=== PATIENT | female | born 2000 | race Caucasian/White ===

== ENCOUNTER 2021-06-19 09:32 | Emergency (ER) | payer OTHER ==
--- OUTSIDE RECORDS SUMMARY | 2021-06-19 09:34 | XMS REPORT | Continuity of Care Document ---
:2000 Author Organization [facility] t Address [address] [place] [address] Care Team Providers Name Role Phone Zoraida Fragoso Primary Care Physician Zoraida RUSSO Attending Clinician Unavailable BERNARDO JORGENSEN Attending Clinician Unavailable Bernardo Jorgensen MD Attending Clinician Zoraida Fragoso Attending Clinician Payers Payer Name Policy Type Policy Number Effective Date Expiration Date S la [place] [employer] [id number] 2020 HEALTH 00:00:00 Advance Directives Directive Decision Effective Termination Comments Source Date Date Healthcare Agents on N/A Univ ersity FileNameRelationshipHealthcare [facility] Agent Medical RelationshipCommunicationGuadalupe Branch GonzalezBronson [facility] Hospital[facility] [phone] (Mobile) Problems Condition Condition Condition Status Onset Resolution Last Treating Co mments Source Name Details Category Date Date Treatment Clinician Date Maternal Maternal Disease Active Overview: Un bill varicella, varicella, 4-13 Formattin ity of non-immune non-immune 00:00: g of this [place] 00 note Medical might be Branch different from the original. Address in PP. Rubella Rubella Disease Active Overview: Univ ers non-immune non-immune 4-13 Formattin ity of status, status, 00:00: g of this [place] antepartum antepartum 00 note Me dical might be Branch different from the original. Address in PP. Obesity in Obesity in Disease Active U nivers 4-12 ity of 00:00: [place] 00 Medical Branch Primigravi Primigravi Disease Active 2021-0 U nivers da in da in 4-12 ity of first first 00:00: [place] trimester trimester 00 [facility] Branch Supervisio Supervisio Disease Active 2021- U nivers n of high n of high 4-12 ity of risk risk 00:00: [place] , , 00 Me dical antepartum antepartum Br anch Nausea and Nausea and Disease Active 2021-0 U nivers vomiting vomiting 4-12 ity of in in 00:00: [place] 00 [facility] prior to prior to Branch 22 weeks 22 weeks gestation gestation BMI BMI Disease Active 2020- Univers 45.0-49.9, 45.0-49.9, 2-11 it y of adult adult 00:00: [address] Allergies, Adverse Reactions, Alerts Allergy Allergy Status Severity Reaction(s) Onset Inactive Treating Comm ents Source Name Type Date Date Clinician NO KNOWN Drug Active Univers ALLERGIE Class ity of S [facility] Social History Social Habit Start Date Stop Date Quantity Comments Source ASSERTION 2021-05-01 University of 00:00:00 [facility] Exposure to 2021-04-30 2021-05-[address] [facility] SARS-CoV-2 00:00:00 10:23:00 [facility] (event) Branch Alcohol intake 2021-05-30 2021-05-30 Current drinker Unive rsity of 00:00:00 00:00:00 of alcohol [place] Medical (finding) Branch History SDOH 2020-03-31 2020-03-31 99 University o f Alcohol Frequency 00:00:00 00:00:00 [place] M edical Branch History SDOH 2020-03-31 2020-03-31 99 University o f Alcohol Std 00:00:00 00:00:00 [place] Medical Drinks Branch History SDOH 2020-03-31 2020-03-31 99 University o f Alcohol Binge 00:00:00 00:00:00 [place] Medic al Branch Alcohol Comment 2020-03-31 2020-03-31 special Universit y of 00:00:00 00:00:00 occassions [facility] Tobacco use and 2017-05-13 2017-05-13 Never used Universit y of exposure 00:00:00 00:00:00 [facility] Sex Assigned At [birth year] Universit y of 00:00:00 00:00:00 [facility] Smoking Status Start Date Stop Date Source Never smoker [facility] Medications Ordered Filled Start Stop Current Ordering Indication Dosage Frequency Signature Comments Components Source Medication Medication Date Date Medication? Clinician (SIG) Name Name shreyas Yes [id number] 500mg Take 1 Univers n 500 mg 4-13 tablet by ity of tablet 00:00: mouth [place] 00 daily. [facility] Branch azithromyci Yes [id number] 500mg Take 1 Univers n 500 mg 4-13 tablet by ity of tablet 00:00: mouth [place] 00 daily. [facility] Branch Yes [id number] 1{packe Take 1 Univers vit 4-12 t} Packet by ity of 33-iron-fol 00:00: mouth [place] ic-dha 00 daily. Medical ([facility] + DHA) 29 mg iron-1 mg -250 mg combo pack Yes [id number] 1{packe Take 1 Univers vit 4-12 t} Packet by ity of 33-iron-fol 00:00: mouth [place] ic-dha 00 daily. Medical ([facility] + DHA) 29 mg iron-1 mg -250 mg combo pack Immunizations Ordered Filled Immunization Date Status Comments Sourc e Immunization Name Name SARS-COV-2 COVID-19 2020-12-12 Completed Unive rsity of PFIZER VACCINE 00:00:00 [facility] SARS-COV-2 COVID-19 2020-12-12 Completed Unive rsity of PFIZER VACCINE 00:00:00 [facility] Procedures This patient has no known procedures. Encounters Start End Encounter Admission Attending Care Care Encounter Source Date/Time Date/Time Type Type Clinicians Facility Department ID 2021-06-27 2021-06-27 Outpatient Zoraida RUSSO [facility] [id number] Univers 11:00:00 11:00:00 ALEYDA colvin [facility] 2021-06-21 2021-06-21 Outpatient ANISHA MOTA [facility] [id number] Univers 10:00:00 10:00:00 [id number] ity of [facility] 2021-06-19 2021-06-19 Telephone Anisha Jorgensen [facility] [id number] Univers 00:00:00 00:00:00 Bernardo [place] [id number] i ty [facility] [id number] Billya s PROFESSIO [id number] Nd dical [address] 2021-05-31 2021-05-31 Telephone Jeremi [facility] [id number] Univers 00:00:00 00:00:00 Aleyda Conway PEELER OPERATOR [id number] ity [facility] [id number] Billy as MATERNAL [id number] Med ical & CHILD [address] [place] [address] Results This patient has no known results.
[2021-06-19 10:17] LABS: Absolute Lymphocytes (CBC) 2.1 K/uL (0.7-4.9); Hematocrit 39.1 % (36.0-45.0); MPV 7.7 fL (7.6-11.3); RBC Red Blood Cell Count 4.57 M/uL (3.86-4.86)
[2021-06-19 10:51] LABS: BUN Blood Urea Nitrogen 9 mg/dL (7-18); Bicarbonate 25 mmol/L (21-32); Glucose Level 93 mg/dL (74-106); HCG, Quantitative 18952 mIU/mL (1-3); Sodium Level 136 mmol/L (136-145)
[2021-06-19 10:56] LABS: Urine Blood Negative (Negative); Urine Glucose Negative (Negative); Urine Protein Negative (Negative); Urine pH 7.5 (5.0-7.0)
[2021-06-19 11:19] LABS: Urine Bacteria <20 /HPF (<20); Urine RBC <5 /HPF (NONE SEEN)
[2021-06-19 11:20] LABS: Urine Amorphous Sediment 2+ /HPF (NONE SEEN); Urine Mucus 1+ /HPF (NONE SEEN)
--- NOTE | 2021-06-19 12:14 | EDPHYS ---
Physician Documentation [facility] Name: Judi Frank Age: 21 yrs Sex: Female : 2000 Arrival Date: 06/19/2021 Time: 09:35 Bed 19 Private MD: ED Physician Carson Lund HPI: 06/19 09:51 This 21 yrs old Female presents to ER via Ambulatory with complaints of Vomiting - 9 pm1 Wks Preg. 09:51 The patient presents to the emergency department with vomiting. Onset: The pm1 symptoms/episode began/occurred Onset with . Patient reports vomiting once every 2 to 3 days. Possible causes: . The symptoms are aggravated by nothing. The symptoms are alleviated by nothing. Associated signs and symptoms: The patient has no apparent associated signs or symptoms, Pertinent negatives: Vaginal bleeding, vaginal discharge, abdominal pain, flank pain, dysuria, fever. Severity of symptoms: in the emergency department the symptoms are unchanged. The patient has not experienced similar symptoms in the past. The patient has not recently seen a physician. 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 - Social history:: Smoking status: Reported history of juuling and/or vaping. ROS: 09:51 Constitutional: Negative for fever, chills, and weight loss, Cardiovascular: Negative pm1 for chest pain, palpitations, and edema, Respiratory: Negative for shortness of breath, cough, wheezing, and pleuritic chest pain. 09:51 Back: Negative for injury and pain, : Negative for injury, bleeding, discharge, and swelling, MS/Extremity: Negative for injury and deformity, Skin: Negative for injury, rash, and discoloration, Neuro: Negative for headache, weakness, numbness, tingling, and seizure. 09:51 Abdomen/GI: Positive for vomiting, Negative for abdominal pain, diarrhea, constipation. 09:51 All other systems are negative. Exam: 09:51 Constitutional: This is a well developed, well nourished patient who is awake, alert, pm1 and in no acute distress. Head/Face: Normocephalic, atraumatic. 09:51 Back: No spinal tenderness. No costovertebral tenderness. Full range of motion. Skin: Warm, dry with normal turgor. Normal color with no rashes, no lesions, and no evidence of cellulitis. MS/ Extremity: Pulses equal, no cyanosis. Neurovascular intact. Full, normal range of motion. 09:51 ENT: Exam is negative for acute changes, Mouth: no acute changes, Lips: normal, moist, Oral mucosa: normal, pink and intact, moist. 09:51 Cardiovascular: Exam negative for acute changes, Rate: normal, Rhythm: regular, Pulses: no pulse deficits are appreciated. 09:51 Respiratory: Exam negative for acute changes, respiratory distress, shortness of breath, Breath sounds: are clear throughout. 09:51 Abdomen/GI: Exam negative for acute changes, Inspection: abdomen appears normal, Palpation: abdomen is soft and non-tender, in all quadrants. 09:51 Neuro: Exam negative for acute changes, Orientation: is normal, Mentation: is normal, Motor: is normal, moves all fours. Vital Signs: 09:46 BP 133 / 83; Pulse 90; Resp 16; Temp 98.3; Pulse Ox 100% ; Weight 113.4 kg; Height 5 vg1 ft. 4 in. (162.56 cm); Pain 0/10; 12:53 BP 133 / 83; Pulse 87; Resp 16; Pulse Ox 100% ; Pain 0/10; ll1 09:46 Body Mass Index 42.91 (113.40 kg, 162.56 cm) vg1 MDM: 09:56 Patient medically screened. pm1 12:12 Data reviewed: vital signs. Data interpreted: Pulse oximetry: on room air is 100 %. pm1 Interpretation: normal. Counseling: I had a detailed discussion with the patient and/or guardian regarding: the historical points, exam findings, and any diagnostic results supporting the discharge/admit diagnosis, lab results, the need for outpatient follow up, to return to the emergency department if symptoms worsen or persist or if there are any questions or concerns that arise at home. 12:17 ED course: Patient did not want antinausea medications in the ER. Patient with one pm1 episode of vomiting every 2-3 days during her . No metabolic derangement present on BMP. No need for antiemetic at the moment. 06/19 09:50 Order name: Abo/rh Typing; Complete Time: 11:41 pm1 06/19 09:50 Order name: Basic Metabolic Panel; Complete Time: 10:56 pm1 06/19 09:50 Order name: CBC with Diff; Complete Time: 10:30 pm1 06/19 09:50 Order name: Quantitative Hcg; Complete Time: 10:56 pm1 06/19 10:56 Order name: Urine Dipstick-Ancillary; Complete Time: 11:12 EDIA 06/19 10:56 Order name: Urine Microscopic Only; Complete Time: 11:41 pm06/19 09:50 Order name: IV Saline Lock; Complete Time: 09:59 pm06/19 09:50 Order name: Labs collected and sent; Complete Time: 09:59 pm06/19 09:50 Order name: NPO; Complete Time: 09:59 pm1 06/19 09:50 Order name: Urine Dipstick-Ancillary (obtain specimen); Complete Time: 10:57 pm1 06/19 09:50 Order name: Urine Test (obtain specimen); Complete Time: 10:57 pm1 06/19 10:57 Order name: Urine --Ancillary (enter results); Complete Time: 11:41 eb 06/19 11:23 Order name: Urine Culture EDIA 06/19 12:13 Order name: FHT's; Complete Time: 12:27 pm1 Administered Medications: 12:15 Drug: Rocephin (cefTRIAXone) 1 grams Route: IV; Rate: calculated rate; Site: right ll1 antecubital; 12:45 Follow up: Response: No adverse reaction; IV Status: Completed infusion; IV Intake: [id number] Disposition: 06/20 12:21 Co-signature as Attending Physician, Carson Lund MD. rn Disposition Summary: 06/19/21 12:13 Discharge Ordered Location: Home pm1 Problem: new pm1 Symptoms: have improved pm1 Condition: Stable pm1 Diagnosis - Vomiting of , unspecified pm1 - UTI/ Urinary tract infection, site not specified pm1 Followup: pm1 - With: Emergency Department - When: As needed - Reason: Worsening of condition Followup: pm1 - With: Private Physician - When: 2 - 3 days - Reason: Recheck today's complaints, Continuance of care, Re-evaluation by your physician Discharge Instructions: - Discharge Summary Sheet pm1 - Morning Sickness pm1 - and Urinary Tract Infection pm1 Forms: - Medication Reconciliation Form pm1 - Thank You Letter pm1 - Antibiotic Education pm1 - Prescription Opioid Use pm1 - Work release form ll1 Prescriptions: - Macrobid 100 mg Oral Capsule - take 1 capsule by ORAL route every 12 hours for 10 days; 20 capsule; Refills: pm1 0, Product Selection Permitted Signatures: Dispatcher [employer] EDMS Carson Lund MD MD rn Marinas, Patrick, NP FISHING HAND pm1 Matilde Ji RN RN vg1 Fermin Gonzalez RN RN 1 Corrections: (The following items were deleted from the chart) 06/19 09:51 09:49 Home Meds: None; vg1 vg1 12:23 12:17 ED course: Patient did not want antinausea medications in the ER. Patient with pm1 one episode of vomiting every 2-3 days during her . pm1
--- NOTE | 2021-06-19 12:14 | ER ---
Nurse's Notes [facility] Name: Judi Frank Age: 21 yrs Sex: Female : 2000 Arrival Date: 06/19/2021 Time: 09:35 Bed 19 Private MD: Diagnosis: Vomiting of , unspecified;UTI/ Urinary tract infection, site not specified Presentation: 06/19 09:46 Chief complaint: Patient states: "for about the past 3 weeks has been vomiting bright vg1 red blood off and on". Coronavirus screen: Vaccine status: Patient reports receiving the 1st dose of the Covid vaccine. Client denies travel out of the [place] in the last 14 days. Ebola Screen: Patient denies exposure to infectious person. Patient denies travel to an Ebola-affected area in the 21 days before illness onset. Initial Sepsis Screen: Does the patient meet any 2 criteria? No. Patient's initial sepsis screen is negative. Does the patient have a suspected source of infection? No. Patient's initial sepsis screen is negative. Risk Assessment: Do you want to hurt yourself or someone else? Patient reports no desire to harm self or others. Onset of symptoms was May 29, 2021. 09:46 Method Of Arrival: Ambulatory vg1 09:46 Acuity: NEIDA 3 vg1 Triage Assessment: 09:49 General: Appears in no apparent distress. comfortable, Behavior is calm, cooperative. vg1 Pain: Denies pain. GI: Reports vomiting. 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 - Social history:: Smoking status: Reported history of juuling and/or vaping. Screenin:45 Abuse screen: Denies threats or abuse. Nutritional screening: No deficits noted. ll1 Tuberculosis screening: No symptoms or risk factors identified. Fall Risk IV access (20 points). Total Campbell Fall Scale indicates No Risk (0-24 pts). Assessment: 10:45 Reassessment: No changes from previously documented assessment. Patient and/or family ll1 updated on plan of care and expected duration. Pain level reassessed. Patient is alert, oriented x 3, equal unlabored respirations, skin warm/dry/pink. 11:45 Reassessment: No changes from previously documented assessment. Patient and/or family ll1 updated on plan of care and expected duration. Pain level reassessed. Patient is alert, oriented x 3, equal unlabored respirations, skin warm/dry/pink. unable to find FHT. Yovanny Briggs informed. 12:45 Reassessment: No changes from previously documented assessment. Patient and/or family ll1 updated on plan of care and expected duration. Pain level reassessed. Patient is alert, oriented x 3, equal unlabored respirations, skin warm/dry/pink. 12:50 GI: Abdomen is round. ll1 Vital Signs: 09:46 BP 133 / 83; Pulse 90; Resp 16; Temp 98.3; Pulse Ox 100% ; Weight 113.4 kg; Height 5 vg1 ft. 4 in. (162.56 cm); Pain 0/10; 12:53 BP 133 / 83; Pulse 87; Resp 16; Pulse Ox 100% ; Pain 0/10; ll1 09:46 Body Mass Index 42.91 (113.40 kg, 162.56 cm) vg1 ED Course: 09:35 Patient arrived in ED. ds1 09:44 Dell Briggs NP is PHCP. pm1 09:44 Carson Lund MD is Attending Physician. pm1 09:49 Triage completed. vg1 09:49 Arm band placed on. vg1 09:59 Fermin Gonzalez, LAVINIA is Primary Nurse. ll1 10:06 Initial lab(s) drawn, by ct, sent to lab. Inserted saline lock: 20 gauge in right vg1 antecubital area, using aseptic technique. Blood collected. 10:45 Patient has correct armband on for positive identification. Bed in low position. Call 1 light in reach. Side rails up X 1. Cardiac monitoring not applicable on this patient. 12:51 No provider procedures requiring assistance completed. IV discontinued, intact, ll1 bleeding controlled, No redness/swelling at site. Pressure dressing applied. Administered Medications: 12:15 Drug: Rocephin (cefTRIAXone) 1 grams Route: IV; Rate: calculated rate; Site: right ll1 antecubital; 12:45 Follow up: Response: No adverse reaction; IV Status: Completed infusion; IV Intake: 11sbul1 Intake: 12:45 IV: 50ml; Total: 50ml. 1 Outcome: 12:13 Discharge ordered by . pm1 12:51 Discharged to home ambulatory. ll1 12:51 Condition: stable 12:51 Discharge instructions given to patient, family, Instructed on discharge instructions, follow up and referral plans. Demonstrated understanding of instructions, follow-up care, medications, Prescriptions given X 1. 12:53 Patient left the ED. 1 Signatures: Sana Gonzalez ds1 Dell Briggs NP COMB WINDER pm1 Matilde Ji RN RN vg1 Fermin Gonzalez RN RN ll1 Corrections: (The following items were deleted from the chart) 09:51 09:49 Home Meds: None; vg1 vg1
[2021-06-19] MEDS ORDERED: CEFTRIAXONE 1000 MG/VIAL ONE (12:18)
[2021-06-19] MEDS ORDERED: NA CHLORIDE 0.9% 50 ML ONE (12:18)
[2021-06-19 13:23] VITALS: BP 133/83; TEMP 98.3; O2SAT 100
== END 2021-06-19 12:53 | disposition home or self-care (01) ==
LOC: ER 09:32
DX: O23.41 Unspecified infection of urinary tract in pregnancy, first trimester (principal); N39.0 Urinary tract infection, site not specified; Z3A.09 9 weeks gestation of pregnancy
CPT/HCPCS: 36415; 80048; 81003; 81015; 81025; 84702; 85025; 86900; 86901; 87086; 87088; 96365; 99284

== ENCOUNTER 2021-07-15 18:20 | Emergency (ER) | payer OTHER ==
--- OUTSIDE RECORDS SUMMARY | 2021-07-15 18:23 | XMS REPORT | Continuity of Care Document ---
:2000 Author Organization [facility] t Address [address] [place] [address] Care Team Providers Name Role Phone Zoraida RUSSO Primary Care Physician Unavailable BERNARDO JORGENSEN Attending Clinician Unavailable Bernardo Jorgensen MD Attending Clinician Doctor Unassigned, Name Attending Clinician Unavailable JAMEEL, BERNARDO Admitting Clinician Unavailable Payers Payer Name Policy Type Policy Number Effective Date Expiration Date S la [place] [employer] [id number] 2020 HEALTH 00:00:00 Problems Condition Condition Condition Status Onset Resolution Last Treating Co mments Source Name Details Category Date Date Treatment Clinician Date Missed Missed Disease Active Univers 5-12 ity of 00:00: [place] 00 Medical Branch Maternal Maternal Disease Active Overview: Un bill varicella, varicella, 4-13 Formattin ity of non-immune non-immune 00:00: g of this [place] 00 note Medical might be Branch different from the original. Address in PP. Rubella Rubella Disease Active Overview: Univ ers non-immune non-immune 4-13 Formattin ity of status, status, 00:00: g of this [place] antepartum antepartum 00 note Me dical might be Branch different from the original. Address in PP. Obesity in Obesity in Disease Active U nivers 4-12 ity of 00:00: [place] 00 Medical Branch Supervisio Supervisio Disease Active U nivers n of high n of high 4-12 ity of risk risk 00:00: [place] , , 00 Me dical antepartum antepartum Br anch Nausea and Nausea and Disease Active U nivers vomiting vomiting 4-12 ity of in in 00:00: [place] 00 Medi cheryl prior to prior to Branch 22 weeks 22 weeks gestation gestation Morbid Morbid Disease Active Univers obesity obesity 2-11 ity [facility] with [facility] index 00 Me dical of of Branch 40.0-49.9 40.0-49.9 Allergies, Adverse Reactions, Alerts Allergy Allergy Status Severity Reaction(s) Onset Inactive Treating Comm ents Source Name Type Date Date Clinician NO KNOWN Drug Active Univers ALLERGIE Class ity of S [facility] Social History Social Habit Start Date Stop Date Quantity Comments Source ASSERTION 2021-05-01 [facility] 00:00:00 [facility] Exposure to 2021-06-19 2021-06-29 Not sure [facility] SARS-CoV-2 00:00:00 09:30:00 [facility] (event) [place] Alcohol intake 2021-06-29 2021-06-29 Ex-drinker [facility] 00:00:00 00:00:00 (finding) [facility] Tobacco use and 2017-05-13 2017-05-13 Never used Universit y of exposure 00:00:00 00:00:00 [facility] Sex Ass[birth year] At [birth year] Universit y of 00:00:00 00:00:00 [facility] Smoking Status Start Date Stop Date Source Never smoker [facility] Medications Ordered Filled Start Stop Current Ordering Indication Dosage Frequency Signature Comments Components Source Medication Medication Date Date Medication? Clinician (SIG) Name Name pyridoxine, Yes [id number] 25mg Take 1 Univers VITAMIN 5-04 tablet by ity of B-6, 00:00: mouth [place] (VITAMIN 00 every 6 Medical B-6) 25 mg (six) Branch tablet hours as needed for Nausea and Vomiting (N/V). doxylamine Yes [id number] 25mg Take 1 U nivers (UNISOM, 5-04 tablet by ity of DOXYLAMINE, 00:00: mouth at [facility] ) 25 mg 00 bedtime as Medica l tablet needed for Branch Nausea and Vomiting (N/V). metoclopram 2-0 Yes [id number] 10mg Take 1 Univers dodie HCl 10 5-04 tablet by ity of mg tablet 00:00: mouth [place] 00 every 6 Medical (six) Branch hours as needed for Nausea and Vomiting (N/V). pyridoxine, 2021-0 Yes [id number] 25mg Take 1 Univers VITAMIN 5-04 tablet by ity of B-6, 00:00: mouth [place] (VITAMIN 00 every 6 Medical B-6) 25 mg (six) Branch tablet hours as needed for Nausea and Vomiting (N/V). doxylamine 2021-0 Yes [id number] 25mg Take 1 U nivers (UNISOM, 5-04 tablet by ity of [place]XYLAM[place], [place] 25 mg 00 bedtime as Medica l tablet needed for Branch Nausea and Vomiting (N/V). metoclopram 2021-0 Yes [id number] 10mg Take 1 Univers dodie HCl 10 5-04 tablet by ity of mg tablet 00:00: mouth [place] 00 every 6 Medical (six) Branch hours as needed for Nausea and Vomiting (N/V). pyridoxine, 2021-0 Yes [id number] 25mg Take 1 Univers VITAMIN 5-04 tablet by ity of B-6, 00:00: mouth [place] (VITAMIN 00 every 6 Medical B-6) 25 mg (six) Branch tablet hours as needed for Nausea and Vomiting (N/V). doxylamine 2021-0 Yes [id number] 25mg Take 1 U nivers (UNISOM, 5-04 tablet by ity of DOXYLAMINE, [place] 25 mg 00 bedtime as Medica l tablet needed for Branch Nausea and Vomiting (N/V). metoclopram 2021-0 Yes [id number] 10mg Take 1 Univers dodie HCl 10 5-04 tablet by ity of mg tablet 00:00: mouth [place] 00 every 6 Medical (six) Branch hours as needed for Nausea and Vomiting (N/V). pyridoxine, 2021-0 Yes [id number] 25mg Take 1 Univers VITAMIN 5-04 tablet by ity of B-6, 00:00: mouth [place] (VITAMIN 00 every 6 Medical B-6) 25 mg (six) Branch tablet hours as needed for Nausea and Vomiting (N/V). doxylamine 2022-0 Yes [id number] 25mg Take 1 U nivers (UNISOM, 5-04 tablet by ity of DOXYLAMINE, [place] 25 mg 00 bedtime as Medica l tablet needed for Branch Nausea and Vomiting (N/V). metoclopram 2022-0 Yes [id number] 10mg Take 1 Univers dodie HCl 10 5-04 tablet by ity of mg tablet 00:00: mouth [place] 00 every 6 Medical (six) Branch hours as needed for Nausea and Vomiting (N/V). pyridoxine, 2021-0 Yes [id number] 25mg Take 1 Univers VITAMIN 5-04 tablet by ity of B-6, 00:00: mouth [place] (VITAMIN 00 every 6 Medical B-6) 25 mg (six) Branch tablet hours as needed for Nausea and Vomiting (N/V). doxylamine 2021-0 Yes [id number] 25mg Take 1 U nivers (UNISOM, 5-04 tablet by ity of DOXYLAMINE, [place]: [place] 25 mg 00 bedtime as Medica l tablet needed for Branch Nausea and Vomiting (N/V). metoclopram 2021-0 Yes [id number] 10mg Take 1 Univers dodie HCl 10 5-04 tablet by ity of mg tablet 00:00: mouth [place] 00 every 6 Medical (six) Branch hours as needed for Nausea and Vomiting (N/V). pyridoxine, 2-0 Yes [id number] 25mg Take 1 Univers VITAMIN 5-04 tablet by ity of B-6, 00:00: mouth [place] (VITAMIN 00 every 6 Medical B-6) 25 mg (six) Branch tablet hours as needed for Nausea and Vomiting (N/V). doxylamine 2-0 Yes [id number] 25mg Take 1 U nivers (UNISOM, 5-04 tablet by ity of DOXYLAMINE, [place]: [place] 25 mg 00 bedtime as Medica l tablet needed for Branch Nausea and Vomiting (N/V). metoclopram 2022-0 Yes [id number] 10mg Take 1 Univers dodie HCl 10 5-04 tablet by ity of mg tablet 00:00: mouth [place] 00 every 6 Medical (six) Branch hours as needed for Nausea and Vomiting (N/V). Nitrofurant 2021-0 Yes [id number] TAKE 1 Univers oin&Nit. 5-02 CAPSULE BY ity o f Macrocryst 00:00: MOUTH [place] 100 mg 00 EVERY 12 Medical capsule HOURS FOR Branch 10 DAYS Nitrofurant 2021-0 Yes [id number] TAKE 1 Univers oin&Nit. 5-02 CAPSULE BY ity o f Macrocryst 00:00: MOUTH [place] 100 mg 00 EVERY 12 Medical capsule HOURS FOR Branch 10 DAYS Nitrofurant 2021-0 Yes [id number] TAKE 1 Univers oin&Nit. 5-02 CAPSULE BY ity o f Macrocryst 00:00: MOUTH [place] 100 mg 00 EVERY 12 Medical capsule HOURS FOR Branch 10 DAYS Nitrofurant 2021-0 Yes [id number] TAKE 1 Univers oin&Nit. 5-02 CAPSULE BY ity o f Macrocryst 00:00: MOUTH [place] 100 mg 00 EVERY 12 Medical capsule HOURS FOR Branch 10 DAYS Nitrofurant 2021-0 Yes [id number] TAKE 1 Univers oin&Nit. 5-02 CAPSULE BY ity o f Macrocryst 00:00: MOUTH [place] 100 mg 00 EVERY 12 Medical capsule HOURS FOR Branch 10 DAYS Nitrofurant 2021-0 Yes [id number] TAKE 1 Univers oin&Nit. 5-02 CAPSULE BY ity o f Macrocryst 00:00: MOUTH [place] 100 mg 00 EVERY 12 Medical capsule HOURS FOR Branch 10 DAYS azithromyci 2021-0 Yes [id number] 500mg Take 1 Univers n 500 mg 4-13 tablet by ity of tablet 00:00: mouth [place] 00 daily. Medical Branch azithromyci 2021-0 Yes [id number] 500mg Take 1 Univers n 500 mg 4-13 tablet by ity of tablet 00:00: mouth [place] 00 daily. Medical Branch azithromyci 2021-0 Yes [id number] 500mg Take 1 Univers n 500 mg 4-13 tablet by ity of tablet 00:00: mouth [place] 00 daily. Medical Branch azithromyci 2021-0 Yes [id number] 500mg Take 1 Univers n 500 mg 4-13 tablet by ity of tablet 00:00: mouth [place] 00 daily. Medical Branch azithromyci 2021-0 Yes [id number] 500mg Take 1 Univers n 500 mg 4-13 tablet by ity of tablet 00:00: mouth [place] 00 daily. Medical Branch azithromyci Yes [id number] 500mg Take 1 Univers n 500 mg 4-13 tablet by ity of tablet 00:00: mouth [place] 00 daily. Medical Branch Yes [id number] 1{packe Take 1 Univers vit 4-12 t} Packet by ity of 33-iron-fol 00:00: mouth [place] ic-dha 00 daily. Medical (SELECT-OB Branch + DHA) 29 mg iron-1 mg -250 mg combo pack Yes [id number] 1{packe Take 1 Univers vit 4-12 t} Packet by ity of 33-iron-fol 00:00: mouth [place] ic-dha 00 daily. Medical (SELECT-OB Branch + DHA) 29 mg iron-1 mg -250 mg combo pack Yes [id number] 1{packe Take 1 Univers vit 4-12 t} Packet by ity of 33-iron-fol 00:00: mouth [place] ic-dha 00 daily. Medical (SELECT-OB Branch + DHA) 29 mg iron-1 mg -250 mg combo pack Yes [id number] 1{packe Take 1 Univers vit 4-12 t} Packet by ity of 33-iron-fol 00:00: mouth [place] ic-dha 00 daily. Medical (SELECT-OB Branch + DHA) 29 mg iron-1 mg -250 mg combo pack Yes [id number] 1{packe Take 1 Univers vit 4-12 t} Packet by ity of 33-iron-fol 00:00: mouth [place] ic-dha 00 daily. Medical (SELECT-OB Branch + DHA) 29 mg iron-1 mg -250 mg combo pack Yes [id number] 1{packe Take 1 Univers vit 4-12 t} Packet by ity of 33-iron-fol 00:00: mouth [place] ic-dha 00 daily. Medical (SELECT-OB Branch + DHA) 29 mg iron-1 mg -250 mg combo pack Immunizations Ordered Filled Immunization Date Status Comments [facility] e Immunization Name Name SARS-COV-2 COVID-19 2020-12-12 Completed [facility]:00 [facility] SARS-COV-2 COVID-19 2020-12-12 Completed Unive rsity of PFIZER VACCINE 00:00:00 [facility] SARS-COV-2 COVID-19 2020-12-12 Completed Unive rsity of PFIZER VACCINE 00:00:00 [facility] SARS-COV-2 COVID-19 2020-12-12 Completed Unive rsity of PFIZER VACCINE 00:00:00 [facility] SARS-COV-2 COVID-19 2020-12-12 Completed Unive rsity of PFIZER VACCINE 00:00:00 [facility] SARS-COV-2 COVID-19 2020-12-12 Completed Unive rsity of PFIZER VACCINE 00:00:00 [facility] Vital Signs Vital Name Observation Time Observation Value Comments Source Systolic blood 2021-06-29 14:45:00 114 mm[Hg] Univer sity of pressure [facility] Diastolic blood 2021-06-29 14:45:00 74 mm[Hg] Unive rsity of pressure [facility] Heart rate 2021-06-29 14:45:00 84 /min [facility] Body temperature 2021-06-29 14:45:00 37.11 [facility] Respiratory rate 2021-06-29 14:45:00 18 /min [facility] Body height 2021-06-29 14:45:00 162.6 cm [facility] Body weight 2021-06-29 14:45:00 117.935 kg [facility] BMI 2021-06-29 14:45:00 44.63 kg/m2 [facility] Procedures Procedure Date / Time Performing Clinician Source Performed US FIRST 2021-07-06 22:20:48 Anisha Jorgensen [facility] TRIMESTER LESS THAN 14 Medical B [place] WEEKS WITH TRANSVAGINAL ASSIGNMENT OF BENEFITS 2021-07-06 21:04:11 Doctor Unassigned, No [facility] Name [facility] Branch US OB TRANSVAGINAL 2021-06-29 19:50:06 Anisha Jorgensen [facility] PERIODICALS CLERK CLINIC 2021-06-29 05:01:00 Doctor Unassigned, No [facility] ULTRASOUND Name [facility] POCT URINALYSIS W/O 2021-06-29 00:00:00 Anisha Jorgensen [facility] SPECIFIC GRAVITY [facility] PERIODICALS CLERK CLINIC 2021-06-21 05:01:00 Doctor Haresh, Marcy [facility] ULTRASOUND Name [facility] Encounters Start End Encounter Admission Attending Care Care Encounter Source Date/Time Date/Time Type Type Clinicians Facility Department ID 2021-07-18 2021-07-18 Outpatient R ANISHA JORGENSEN [facility] [id number] Univers 08:00:00 08:00:00 [id number] ity of [facility] 2021-07-18 2021-07-18 Outpatient R ANISHA JORGENSEN [facility] [id number] Univers 08:00:00 08:00:00 ity of [facility] 2021-07-13 2021-07-13 Telephone Anisha Jorgensen [facility] [id number] Univers 00:00:00 00:00:00 Bernardo CAMACHO [id number] i ty [id number] [facility] [id number] Co dical [address] 2021-07-06 2021-07-06 Outpatient R ANISHA JORGENSEN [facility] [id number] Univers 16:05:13 23:59:00 ity of [facility] 2021-07-06 2021-07-06 Hospital Anisha Jorgensen [facility] [id number] Univers 16:05:13 23:59:00 Encounter Bernardo CAMACHO [id number] it[id number] [facility] [id number] [facility] 806 Branch 2021-07-06 2021-07-06 Orders Doctor DAVIES [id number] Univers 00:00:00 00:00:00 Only UnassGREGORY freitas [id number] ity of [place] [facility] [id number] Billy as [id number] [facility] 009 Branch 2021-06-29 2021-06-29 Office Anisha Jorgensen [facility] [id number] Univers 09:30:00 10:46:28 Visit Bernardo CAMACHO [id number] i [id number] [id number] Me dical NAL [address] [facility] 2021-06-29 2021-06-29 Orders Doctor KEKE [id number] Univers 00:00:00 00:00:00 Only Unassigned, GREGORY [id number] ity of [place] [facility] [id number] Billy as [id number] [facility] 009 [place] 2021-06-21 2021-06-21 Orders Doctor KEKE [id number] Univers 00:00:00 00:00:00 Only Unassigned, GREGORY [id number] ity of [place] [facility] [id number] [place] [phone] [address] Results Test Description Test Time Test Comments Results Result Comments Source POCT URINALYSIS W/O SPECIFIC GRAVITY 2021-06-29 14:58:00 Test Item Value Reference Range Interpretation Comme nts POCT PH U (test code = 3254) n/a 5-8 POCT U LEUK EST (test code = 3263) n/a Negative - Negative POCT U NIT (test code = 3262) n/a Negative - Negative POCT U PROT (test code = 3259) trace Negative - Negative POCT U GLU (test code = 3256) negative Negative - Negative POCT U KETONE (test code = 3258) n/a Negative - Negative POCT U BLD (test code = 3257) n/a Negative - Negative [facility]
--- NOTE | 2021-07-15 19:37 | ER ---
Nurse's Notes [facility] Name: Judi Frank Age: 21 yrs Sex: Female : 2000 Arrival Date: 07/15/2021 Time: 18:22 Bed 5 Private MD: Diagnosis: Complete or unspecified spontaneous without complication Presentation: 07/15 18:49 Chief complaint: Patient states: Pt went to OB 3 weeks ago and was told there was no ld1 heartbeat for the baby. Pt OB told her to watch out for bleeding and to come back on 07/18 for DNC. Pt reporting vaginal bleeding and a bunch of blood clots since this morning at 0900. Coronavirus screen: At this time, the client does not indicate any symptoms associated with coronavirus-19. Coronavirus screen:. Ebola Screen: No symptoms or risks identified at this time. Initial Sepsis Screen: Does the patient meet any 2 criteria? No. Patient's initial sepsis screen is negative. Does the patient have a suspected source of infection? No. Patient's initial sepsis screen is negative. Risk Assessment: Do you want to hurt yourself or someone else? Patient reports no desire to harm self or others. Onset of symptoms was July 15, 2021 at 18:52. 18:49 Method Of Arrival: Wheelchair ld1 18:49 Acuity: NEIDA 3 ld1 Triage Assessment: 18:52 General: Appears in no apparent distress. comfortable, Behavior is calm, cooperative, ld1 appropriate for age. Pain: Complains of pain in abdomen Pain does not radiate. Pain currently is 10 out of 10 on a pain scale. Quality of pain is described as crampy. Neuro: Level of Consciousness is awake, alert, obeys commands, Oriented to person, place, time, situation. Cardiovascular: Capillary refill < 3 seconds Patient's skin is warm and dry. Respiratory: Airway is patent Respiratory effort is even, unlabored. GI: Abdomen is round non-distended, Reports lower abdominal pain, upper abdominal pain, cramping. : Reports vaginal bleeding that is with clots, heavy flow. PSYCHIATRIC CNS: 18:52 LMP 04/09/2021 ld1 Historical: - Allergies: 18:52 No Known Allergies; ld1 - PMHx: 18:52 Anemia; ld1 - PSHx: 18:52 None; ld1 - Immunization history:: Adult Immunizations up to date, Client reports receiving the 1st dose of the Covid vaccine. - Social history:: Smoking status: Patient denies any tobacco usage or history of. Patient/guardian denies using alcohol. - Family history:: not pertinent. - Hospitalizations: : No recent hospitalization is reported. Screenin:20 Abuse screen: Denies threats or abuse. Nutritional screening: No deficits noted. jb4 Tuberculosis screening: No symptoms or risk factors identified. Fall Risk None identified. Assessment: 19:20 General: Appears in no apparent distress. comfortable, Behavior is calm, cooperative, jb4 appropriate for age. Pain: Denies pain. Neuro: Level of Consciousness is awake, alert, obeys commands, Oriented to person, place, time, situation. Cardiovascular: Patient's skin is warm and dry. Respiratory: Airway is patent Respiratory effort is even, unlabored, Respiratory pattern is regular, symmetrical. GI: No signs and/or symptoms were reported involving the gastrointestinal system. : Reports vaginal bleeding that is with clots. EENT: No signs and/or symptoms were reported regarding the EENT system. Derm: Skin is intact, Skin is. Musculoskeletal: Circulation, motion, and sensation intact. Range of motion: intact in all extremities. Vital Signs: 18:49 BP 120 / 76; Pulse 82; Resp 18; Temp 97.9(TE); Pulse Ox 98% on R/A; Weight 113.4 kg; ld1 Height 5 ft. 4 in. (162.56 cm); Pain 10/10; 18:49 Body Mass Index 42.91 (113.40 kg, 162.56 cm) ld1 ED Course: 18:22 Patient arrived in ED. ja2 18:26 Renato Vaz PA is PHCP. cp 18:26 Eron Biggs MD is Attending Physician. cp 18:52 Triage completed. ld1 18:52 Arm band placed on right wrist. ld1 19:02 Attending Physician role handed off by Eron Biggs MD rn 19:02 Carson Lund MD is Attending Physician. rn 19:19 Amando Flannery, LAVINIA is Primary Nurse. bp 19:20 Patient has correct armband on for positive identification. Bed in low position. Call jb4 light in reach. Side rails up X 1. 19:20 No provider procedures requiring assistance completed. Patient did not have IV access jb4 during this emergency room visit. Administered Medications: No medications were administered Medication: 19:20 VIS not applicable for this client. jb4 Outcome: 19:37 Discharge ordered by . rn 19:47 Discharged to home ambulatory. jb4 19:47 Condition: stable 19:47 Discharge instructions given to patient, Instructed on discharge instructions, follow up and referral plans. Demonstrated understanding of instructions, follow-up care. 19:47 Patient left the ED. jb4 Signatures: Carson Lund MD MD rn Renato Vaz PA PA cp Bryson, James, RN RN jb4 Amando Flannery RN RN Elis Carroll RN RN ld1 Selene Bello
--- NOTE | 2021-07-15 19:38 | EDPHYS ---
Physician Documentation [facility] Name: Judi Frank Age: 21 yrs Sex: Female : 2000 Arrival Date: 07/15/2021 Time: 18:22 Bed 5 Private MD: ED Physician Carson Lund HPI: 07/15 19:30 This 21 yrs old Female presents to ER via Wheelchair with complaints of Vaginal rn Bleeding. 19:30 The patient presents with vaginal bleeding that is moderate, with clots, with tissue. rn Onset: The symptoms/episode began/occurred today. Modifying factors: The symptoms are alleviated by nothing, the symptoms are aggravated by nothing. Associated signs and symptoms: Pertinent positives: cramping, Pertinent negatives: fever, vaginal discharge. Severity of symptoms: At their worst the symptoms were moderate, in the emergency department the symptoms have resolved. The patient has not experienced similar symptoms in the past. The patient has been recently seen by a physician:. Pt reports told 2 weeks ago told had miscarriage by her OB, was at approx 6 weeks gestation, u/s showed absent heartbeat. Began bleeding today with cramping, came in because OB told her to if bleeding. Just prior to me walking in, patient went to bathroom and passed tissue, with resolution of abd cramping.. 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 - Social history:: Smoking status: Patient denies any tobacco usage or history of. Patient/guardian denies using alcohol. - Family history:: not pertinent. - Hospitalizations: : No recent hospitalization is reported. ROS: 19:30 Constitutional: Negative for fever, chills, and weight loss, Eyes: Negative for injury, rn pain, redness, and discharge, Cardiovascular: Negative for chest pain, palpitations, and edema, Respiratory: Negative for shortness of breath, cough, wheezing, and pleuritic chest pain, Abdomen/GI: Negative for nausea, vomiting, diarrhea, and constipation, Back: Negative for injury and pain, : + vaginal bleeding and passage of tissue MS/Extremity: Negative for injury and deformity, Skin: Negative for injury, rash, and discoloration, Neuro: Negative for headache, weakness, numbness, tingling, and seizure. Exam: 19:30 Constitutional: This is a well developed, well nourished patient who is awake, alert, rn and in no acute distress. Head/Face: Normocephalic, atraumatic. Cardiovascular: Regular rate and rhythm. No pulse deficits. Respiratory: No increased work of breathing, no retractions or nasal flaring. Abdomen/GI: soft, non-tender Skin: Warm, dry MS/ Extremity: Pulses equal, no cyanosis. Neuro: Awake and alert, GCS 15 Vital Signs: 18:49 BP 120 / 76; Pulse 82; Resp 18; Temp 97.9(TE); Pulse Ox 98% on R/A; Weight 113.4 kg; ld1 Height 5 ft. 4 in. (162.56 cm); Pain 10/10; 18:49 Body Mass Index 42.91 (113.40 kg, 162.56 cm) ld1 MDM: 19:04 Patient medically screened. rn 19:30 Differential diagnosis: complete Ab. Data reviewed: vital signs, nurses notes, and as a rn result, I will discharge patient. Counseling: I had a detailed discussion with the patient and/or guardian regarding: the historical points, exam findings, and any diagnostic results supporting the discharge/admit diagnosis, the need for outpatient follow up, to return to the emergency department if symptoms worsen or persist or if there are any questions or concerns that arise at home. Medical screen evaluation completed. [facility] emergency medical condition absent. Response to treatment: the patient's symptoms have resolved after treatment, the patient's condition has returned to base line, the patient is now symptom free, and as a result, I will discharge patient. Special discussion: I discussed with the patient/guardian in detail that at this point there is no indication for admission to the hospital. It is understood, however, that if the symptoms persist or worsen the patient needs to return immediately for re-evaluation. Based on the history and exam findings, there is no indication for further emergent testing or inpatient evaluation. I discussed with the patient/guardian the need to see the OB Gyne specialist for further evaluation of the symptoms. ED course: Pt reports abd pain resolved now that has passed tissue. Denies any abd pain. At this point we discussed further care and options, patient states already has OB appt in 3 days scheduled for reeval and does not want anything else done here tonight. Explained to her what to look for regarding retained products and possible infection, understands return precautions. . Administered Medications: No medications were administered Disposition Summary: 07/15/21 19:37 Discharge Ordered Location: Home rn Problem: new rn Symptoms: have improved rn Condition: Stable rn Diagnosis - Complete or unspecified spontaneous without complication rn Followup: rn - With: Private Physician - When: As needed - Reason: Recheck today's complaints, Re-evaluation by your physician Discharge Instructions: - Discharge Summary Sheet rn - Miscarriage rn - Managing Loss rn Forms: - Medication Reconciliation Form rn - Thank You Letter rn - Antibiotic internal medicine physician - Prescription Opioid Use rn Signatures: Dispatcher [employer] EDMS Carson Lund MD MD rn Dibbern, Lauren, RN RN ld1 Corrections: (The following items were deleted from the chart) 19:30 19:17 IV Saline Lock ordered. rn mw2 19:30 19:17 Labs collected and sent ordered. rn mw2 19:30 19:17 NPO ordered. rn mw2 19:30 19:17 Urine Dipstick-Ancillary ordered. rn nilson2 19:36 19:18 ABO/RH TYPING+BB.LAB.BRZ ordered. EDMS EDMS 19:36 19:18 BASIC METABOLIC PANEL+C.LAB.BRZ ordered. EDMS EDMS 19:36 19:18 CBC+H.LAB.BRZ ordered. EDMS EDMS 19:36 19:18 QUANTITATIVE HCG+C.LAB.BRZ ordered. EDMS EDMS 19:36 19:18 UA MICROSCOPIC+U.LAB.BRZ ordered. EDMS EDMS
[2021-07-15 19:59] VITALS: BP 120/76; TEMP 97.9; O2SAT 98
== END 2021-07-15 19:47 | disposition home or self-care (01) ==
LOC: ER 18:20
DX: O03.9 Complete or unspecified spontaneous abortion without complication (principal)
CPT/HCPCS: 99281

== ENCOUNTER 2021-12-10 12:46 | Emergency (ER) | payer OTHER ==
--- OUTSIDE RECORDS SUMMARY | 2021-12-10 12:49 | XMS REPORT | Continuity of Care Document ---
:2000 Author Organization [facility] t Address [address] [place] [address] Care Team Providers Name Role Phone Aleyda Fragoso Primary Care Physician [phone] ANISHA JORGENSEN Attending Clinician Unavailable Anisha Jorgensen MD Attending Clinician Doctor Unassigned, [place] Attending Clinician Unavailable ALEYDA BLOOD Attending Clinician Unavailable 2, [facility] Attending Clinician Unavailable Aleyda Fragoso Attending Clinician ALMA ROSA SAMAYOA Attending Clinician Unavailable Anthony Brown DO Attending Clinician Alma Rosa Samayoa MD Attending Clinician OSMANY JANSEN Attending Clinician Unavailable ANISHA JORGENSEN Admitting Clinician Unavailable Payers Payer Name Policy Type Policy Number Effective Date Expiration Date S la [place] [employer] [id number] 2020 HEALTH 00:00:00 Problems Condition Condition Condition Status Onset Resolution Last Treating Co mments Source Name Details Category Date Date Treatment Clinician Date Missed Missed Disease Active Univers 5-12 ity of 00:00: [place] 00 Medical Branch Maternal Maternal Disease Active Overview: Un bill varicella, varicella, 4-13 Formattin ity of non-immune non-immune 00:00: g of this [place] 00 note Medical might be Branch different from the original. Address in PP. Rubella Rubella Disease Active Overview: Univ ers non-immune non-immune 4-13 Formattin ity of status, status, 00:00: g of this [place] antepartum antepartum 00 note Me dical might be Branch different from the original. Address in PP. Morbid Morbid Disease Active Univers obesity obesity 2-11 ity of with body with body 00:00: [place] s mass index mass index 00 Me dical of of Branch 40.0-49.9 40.0-49.9 Allergies, Adverse Reactions, Alerts Allergy Allergy Status Severity Reaction(s) Onset Inactive Treating Comm ents Source Name Type Date Date Clinician NO KNOWN Drug Active Univers ALLERGIE Class ity of S [facility] Social History Social Habit Start Date Stop Date Quantity Comments Source Exposure to 2021-07-08 2021-07-18 Not sure [facility] SARS-CoV-2 00:00:00 08:03:[address] [facility] (event) [place] Alcohol intake 2021-07-18 2021-07-18 Ex-drinker [facility] 00:00:00 00:00:00 (finding) [facility] Tobacco use and 2017-05-13 2017-05-13 Never used Universit y of exposure 00:00:00 00:00:00 [facility] Sex Assigned At [birth year] Universit y of 00:00:00 00:00:00 [facility] Smoking Status Start Date Stop Date Source Never smoker [facility] Medications Ordered Filled Start Stop Current Ordering Indication Dosage Frequency Signature Comments Components Source Medication Medication Date Date Medication? Clinician (SIG) Name Name No known No Univers medications - ity of 08:38: [address] No known No Univers medications - ity of 08:38: [address] pyridoxine, 2021- No [id number] 25mg Take 1 Univers VITAMIN 5-04 07-18 tablet by ity of B-6, 00:00: 00:00 mouth [place] (VITAMIN 00 :00 every 6 Medical B-6) 25 mg (six) Branch tablet hours as needed for Nausea and Vomiting (N/V). doxylamine 2021- No [id number] 25mg Take 1 Univers (UNISOM, 06-21-31 tablet by ity o f DOXYLAMINE, 00:00: 00:[place] 25 mg 00 :00 bedtime as Medica l tablet needed for Branch Nausea and Vomiting (N/V). metoclopram No [id number] 10mg Take 1 Univers dodie HCl 10 06-21 tablet by ity of mg tablet 00:00: 00:00 mouth [place] 00 :00 every 6 Medical (six) Branch hours as needed for Nausea and Vomiting (N/V). pyridoxine, No [id number] 25mg Take 1 Univers VITAMIN 06-21 tablet by ity of B-6, 00:00: 00:00 mouth [place] (VITAMIN 00 :00 every 6 Medical B-6) 25 mg (six) Branch tablet hours as needed for Nausea and Vomiting (N/V). doxylamine No [id number] 25mg Take 1 Univers (UNISOM, 06-2131 tablet by ity o f DOXYLAMINE, 00:00: 00:00 [place] ) 25 mg 00 :00 bedtime as Medica l tablet needed for Branch Nausea and Vomiting (N/V). metoclopram No [id number] 10mg Take 1 Univers dodie HCl 10 06-21 tablet by ity of mg tablet 00:00: 00:00 mouth [place] 00 :00 every 6 Medical (six) Branch hours as needed for Nausea and Vomiting (N/V). Nitrofurant No [id number] TAKE 1 Univers oin&Nit. 06-19 CAPSULE BY ity of [place] 00:00: 00:00 MOUTH [place] 100 mg 00 :00 EVERY 12 Medical capsule HOURS FOR Branch 10 DAYS Nitrofurant No [id number] TAKE 1 Univers oin&Nit. 06-19 CAPSULE BY ity of [place] 00:00: 00:00 MOUTH [place] 100 mg 00 :00 EVERY 12 Medical capsule HOURS FOR Branch 10 DAYS azithromyci 2021- No [id number] 500mg Take 1 Univers n 500 mg 05-31 tablet by ity o f tablet 00:00: 00:00 mouth [place] 00 :00 daily. [facility] azithromyci 2021- No [id number] 500mg Take 1 Univers n 500 mg 05-31 tablet by ity o f tablet 00:00: 00:00 mouth [place] 00 :00 daily. Medical Branch 2021- No [id number] 1{packe Take 1 Univers vit 05-30 t} Packet by ity of 33-iron-fol 00:00: 00:[place] ic-dha 00 :00 daily. Medical [facility] [place] [facility] 29 mg iron-1 mg -250 mg combo pack 2021- No [id number] 1{packe Take 1 Univers vit 05-30 t} Packet by ity of 33-iron-fol 00:00: 00:00 [place] ic-dha 00 :00 daily. Medical [facility] [place] [facility] 29 mg iron-1 mg -250 mg combo pack Immunizations Ordered Filled Immunization Date Status Comments [facility] e Immunization Name Name SARS-COV-2 COVID-19 2020-12-12 Completed Unive rsity of PFIZER VACCINE 00:00:00 [facility] SARS-COV-2 COVID-19 2020-12-12 Completed Unive rsity of PFIZER VACCINE 00:00:00 [facility] SARS-COV-2 COVID-19 2020-12-12 Completed Unive rsity of PFIZER VACCINE 00:00:00 [facility] SARS-COV-2 COVID-19 2020-12-12 Completed Unive rsity of PFIZER VACCINE 00:00:00 [facility] Vital Signs Vital Name Observation Time Observation Value Comments Source Diastolic blood 2021-07-18 13:14:00 73 mm[Hg] Unive rsity of pressure [facility] Heart rate 2021-07-18 13:14:00 71 /min [facility] Body temperature 2021-07-18 13:14:00 [facility].78 [facility] height 2021-07-18 13:14:00 162.6 cm [facility] Body weight 2021-07-18 13:14:00 119.024 kg Universi ty [facility] BMI 2021-07-18 13:14:00 45.04 kg/m2 [facility] Systolic blood 2021-07-18 13:14:00 114 mm[Hg] Univer sity of pressure [facility] Procedures Procedure Date / Time Performing Clinician Source Performed US OB TRANSVAGINAL 2021-07-18 13:45:[address] [facility] 2021-07-18 05:01:00 Doctor Unassigned, No [facility] ULTRASOUND Name [facility] Encounters Start End Encounter Admission Attending Care Care Encounter Source Date/Time Date/Time Type Type Clinicians Facility Department ID 2021-08-07 2021-08-07 Outpatient R ANISHA JORGENSEN [facility] [id number] Univers 08:15:00 08:15:00 ity [facility] 2021-08-06 2021-08-06 Telephone Anisha Jorgensen [facility] 1.2.840.114 [id number] Univers 00:00:00 00:00:00 Ronald CAMACHO 350.1.13.10 i ty of [id number] PROF[place] [phone] Co dical NAL [address] [place] [address] 2021-07-18 2021-07-18 Office Anisha Jorgensen NHJOLENE [id number] Univers 08:00:00 08:55:39 Visit Ronald CAMACHO 350.1.13.10 i ty of [id number] [phone] Co dicdorcas NAL [address] [place] [address] 2021-07-18 2021-07-18 Outpatient R ANISHA JORGENSEN [facility] [id number] Univers 08:00:00 08:55:39 ity of [facility] 2021-07-18 2021-07-18 Outpatient R ANISHA JORGENSEN [facility] [id number] Univers 08:00:00 08:00:00 ity [facility] 2021-07-18 2021-07-18 Orders Doctor DAVIES [id number] [id number] Univers 00:00:00 00:00:00 Only Unassigned, GREGORY 350.1.13.10 ity of [place] [facility] 4.2.7.2.686 Billy as [phone] [facility] 009 [place] 2021-07-13 2021-07-13 Telephone Anisha Jorgensen [facility] 1.2.840.114 [id number] Univers 00:00:00 00:00:00 Cam [place] 350.1.13.10 i ty of [place] [phone] [facility] 134 [facility] 2021-07-06 2021-07-06 Hospital Anisha Jorgensen [facility] 1.2.840.114 [id number] Univers 16:05:13 23:59:00 Encounter Cam [place] 350.1.13.10 ity of [place] 4[place]2.[place] [phone] [facility] 806 [place] 2021-07-06 2021-07-06 Outpatient R JAMEEL [facility] [id number] Univers 16:05:13 23:59:00 ity of [facility] 2021-07-06 2021-07-06 Orders Doctor KEKE 1.2.840.114 [id number] Univers 00:00:00 00:00:00 Only Unassigned, GREGORY 350.1.13.[address] [place] [facility] 4.2.7.2.686 Billy as [phone] [address] 2021-07-05 2021-07-05 Outpatient R [facility] [id number] Univers 11:00:00 11:00:00 ity of [facility] 2021-06-29 2021-06-29 Outpatient R JAMEEL [facility] [id number] Univers 09:30:00 10:46:28 ity of [facility] 2021-06-29 2021-06-29 Office Jameel Anisha [facility] [id number] Univers 09:30:00 10:46:28 Visit Cam [place] 350.1.13.10 i ty [place] [phone] Co dicny NAL 134 [facility] 2021-06-292021-06-29 Orders Doctor KEKE 1.2.840.114 [id number] Univers 00:00:00 00:00:00 Only Unassigned, GREGORY 350.1.13.[address] [facility] 4.2.7.2.686 [place] as [phone] [address] 2021-06-27 2021-06-27 [facility] [id number] Univers 11:00:00 11:00:00 ALEYDA lanier o f [facility] 2021-06-27 2021-06-27 Outpatient R KARAN [facility] [id number] Univers 11:00:00 11:00:00 ALEYDA lanier o f [facility] 2021-06-26 2021-06-26 Computer Operator 2, Adc Lab [facility] 1.2.840.114 [id number] Univers 16:00:00 16:15:00 Visit Anisha Jorgensen 350.1.13.10 ity [facility] 4[place]2.7.2.[place] [phone] Co dical NAL [address] [place] [address] 2021-06-26 2021-06-26 Outpatient R [facility] [id number] Univers 16:00:00 16:00:00 ity [facility] 2021-06-26 2021-06-26 Outpatient R ANISHA JORGENSEN [facility] [id number] Univers 16:00:00 16:00:00 ity of [facility] 2021-06-23 2021-06-23 Computer Operator 2, Adc Lab [facility] 1.2.840.114 [id number] Univers 16:00:00 16:15:00 Visit Anisha Jorgensen 350.1.13.10 ity of [place] [phone] Co dical NAL [address] [place] [address] 2021-06-23 2021-06-23 Outpatient R [facility] [id number] Univers 16:00:00 16:00:00 ity [facility] 2021-06-23 2021-06-23 Outpatient R ANISHA JORGENSEN [facility] [id number] Univers 16:00:00 16:00:00 ity of [facility] 2021-06-23 2021-06-23 Outpatient R [facility] [id number] Univers 11:00:00 11:00:00 ity of [facility] 2021-06-21 2021-06-21 Computer Operator 2, Adc Lab [facility] 1.2.840.114 [id number] Univers 16:00:00 16:15:00 Visit Anisha Jorgensen 350.1.13.10 ity [place] [phone] Co dicdorcas NAL 353 [facility] 2021-06-21 2021-06-21 Outpatient R ANISHA JORGENSEN [facility] [id number] Univers 16:00:00 16:00:00 ity of [facility] 2021-06-21 2021-06-21 Initial Anisha Jorgensen [facility] [id number] Univers 10:00:00 10:59:11 Ronald CAMACHO 350.1.13.10 ity of Visit [place] [phone] Co dical NAL 134 [facility] 2021-06-21 2021-06-21 Outpatient R ANISHA JORGENSEN [facility] [id number] Univers 10:00:00 10:59:11 ity of [facility] 2021-06-21 2021-06-21 Orders Doctor KEKE 1.2.840.114 [id number] Univers 00:00:00 00:00:00 Only Unassigned, GREGORY 350.1.13.[address] [place] [facility] 4.2.7.2.686 Billy as [phone] [address] 2021-06-19 2021-06-19 Telephone Anisha Jorgensen [facility] 1.2.840.114 [id number] Univers 00:00:00 00:00:00 Ronald CAMACHO 350.1.13.10 i ty of [place] [phone] Co dical NAL 134 [facility] 2021-05-31 2021-05-31 Telephone [facility] [id number] Univers 00:00:00 00:00:00 Roshunda R DOBIE WORKER 350.1.13.10 ity of REGIONAL 4.2.7.2.686 [place] as MATERNAL [phone] [facility] [address] 2021-05-31 2021-05-31 [facility]phone [facility] [id number] Univers 00:00:00 00:00:00 Roshunda R DOBIE WORKER 350.1.13.10 ity of REGIONAL 4.2.7.2.686 Billy as MATERNAL [phone] [address] 2021-05-30 2021-05-30 Out[facility] [id number] Univers 10:00:00 10:59:06 ROSHUNDA ity o f [facility] 2021-05-30 2021-05-30 Initial [facility] 1.2.840.114 [id number] Univers 10:00:00 10:59:06 Roshunda R DOBIE WORKER 350.1.13.10 ity of Visit REGIONAL 4.2.7.2.686 [place] as MATERNAL [phone] [address] 2021-05-30 2021-05-30 Orders Doctor KEKE 1.2.840.114 [id number] Univers 00:00:00 00:00:00 Only Unassigned, GREGORY 350.1.13.[address] [place] [facility] 4.2.7.2.686 Billy as [id number] [address] 2020-10-13 2020-10-13 Outpatient R DANITA [facility] [id number] Univers 14:00:00 14:00:00 ALMA ROSA lanier of [facility] 2020-05-10 2020-05-[address] [facility] 1.2.840.114 [id number] Univers 00:00:00 00:00:00 Outreach Anthony PRIMARY 350.1.13.[address] [facility] 4.2.7.2.[place] JADEON [phone] Co dical [address] [place] 2020-04-15 2020-04-15 Office Ad, [facility] 1.2.840.114 [id number] Univers 14:44:03 16:06:32 Visit Alma Rosa Solorzano Rahel 350.1.13.10 ity of [place] 4[place].2.[place] Profess[place] [phone] Co dical nal 134 [facility] 2020-04-15 2020-04-15 Outpatient R AD, [facility] [id number] Univers 15:00:00 15:00:00 ALMA ROSA yannick [facility] 2020-04-15 2020-04-15 Orders Doctor KEKE 1.2.840.114 [id number] Univers 00:00:00 00:00:00 Only Unassigned, GREGORY 350.1.13.10 ity of [place] [facility] 4.2.7.2.686 Billy as [phone] [address] 2020-04-01 2020-04-01 Case Adum, [facility] 1.2.840.114 [id number] Univers 00:00:00 00:00:00 Management Alma Rosa Solorzano [place] 350.1.13.10 ity of [place].2.[place] Profess[place] [phone] Co dical nal [address] [place] [address] 2020-03-31 2020-03-31 Office Ad, [facility] 1.2.840.114 [id number] Univers 15:10:04 16:47:36 Visit Alma Rosa [place] 350.1.13.10 ity of [place] 4.2.7.2.[place] Profess[place] [phone] Co dical nal [address] [place] [address] 2020-03-31 2020-03-31 Outpatient R AD, [facility] [id number] Univers 15:30:00 15:30:00 ALMA ROSA yannick [facility] 2020-03-31 2020-03-31 Orders Doctor KEKE 1.2.840.114 [id number] Univers 00:00:00 00:00:00 Only Unassigned, GREGORY 350.1.13.10 ity of [place] [facility] 4.2.7.2.686 Billy as [phone] [place] [address] [place] 2019-05-25 2019-05-25 Outpatient Zoraida JANSEN [facility] [id number] [facility] 15:00:00 15:00:00 OSMANY lanier of [facility] Results This patient has no known results.
--- NOTE | 2021-12-10 13:50 | RAD REPORT ---
EXAM DESCRIPTION: RAD - Shoulder Right 2 View - 12/10/2021 1:40 pm CLINICAL HISTORY: fall, shoulder pain COMPARISON: No comparisons FINDINGS/IMPRESSION: No acute fracture. No malalignment. No significant focal degenerative changes.
--- NOTE | 2021-12-10 14:05 | EDPHYS ---
Physician Documentation [facility] Name: Judi Frank Age: 21 yrs Sex: Female : 2000 Arrival Date: 12/10/2021 Time: 12:49 Bed 17 Private MD: ED Physician Carson Lund HPI: 12/10 13:56 This 21 yrs old Female presents to ER via Ambulatory with complaints of Fall Injury, jmm Arm Injury. 13:56 Details of fall: The patient fell from an upright position. Onset: The symptoms/episode jmm began/occurred acutely, yesterday. Associated injuries: The patient sustained right shoulder pain. This is a 21 year female with no chronic medical conditions that presents to the ED with complaints of right shoulder pain after a fall while in the shower last night. Denies other injury. . CHIEF ORDER DISPATCHER: 14:04 LMP N/A - Irregular menses jd3 Historical: - Allergies: 12:59 No Known Allergies; hb - Immunization history:: Adult Immunizations unknown. - Social history:: Smoking status: unknown. ROS: 13:56 Constitutional: Negative for fever, chills, and weight loss, Cardiovascular: Negative jmm for chest pain, palpitations, and edema, Respiratory: Negative for shortness of breath, cough, wheezing, and pleuritic chest pain. 13:56 MS/extremity: Positive for pain. 13:56 All other systems are negative. Exam: 13:56 Constitutional: This is a well developed, well nourished patient who is awake, alert, jmm and in no acute distress. Head/Face: atraumatic. Eyes: EOMI, no conjunctival erythema appreciated ENT: Moist Mucus Membranes Neck: Trachea midline, Supple Chest/axilla: Normal chest wall appearance and motion. Cardiovascular: Regular rate and rhythm. No edema appreciated Respiratory: Normal respirations, no respiratory distress appreciated Abdomen/GI: Non distended Back: Normal ROM Skin: General appearance color normal 13:56 Musculoskeletal/extremity: Right anterior shoulder pain on palpation, full halal butcher strength, pain on abduction, full radial pulse, NVI. 13:56 Skin: Appearance: Color: normal in color. 13:56 Neuro: Motor: is normal. 13:56 Psych: Behavior/mood is pleasant, cooperative. Vital Signs: 12:58 BP 138 / 88; Pulse 84; Resp 16; Temp 98.1; Pulse Ox 100% ; Weight 113.4 kg; Height 5 hb ft. 3 in. (160.02 cm); Pain 7/10; 14:11 Pulse 82; Resp 16; Pulse Ox 100% on R/A; jd3 12:58 Body Mass Index 44.29 (113.40 kg, 160.02 cm) hb MDM: 13:05 Patient medically screened. [facility] 14:03 Data reviewed: vital signs, nurses notes. Counseling: I had a detailed discussion with [facility] the patient and/or guardian regarding: the historical points, exam findings, and any diagnostic results supporting the discharge/admit diagnosis, radiology results, the need for outpatient follow up, to return to the emergency department if symptoms worsen or persist or if there are any questions or concerns that arise at home. 12/10 13:05 Order name: Shoulder Right (2 View) XRAY; Complete Time: 13:53 jm Administered Medications: No medications were administered Disposition: 15:08 Co-signature as Attending Physician, Carson Lund MD. rn Disposition Summary: 12/10/21 14:04 Discharge Ordered Location: Home jm Condition: Stable [facility] Diagnosis - Strain of unspecified muscle, fascia and tendon at shoulder and upper arm level, jmm left arm Followup: [facility] - With: Elio Liriano MD - When: 2 - 3 days - Reason: Recheck today's complaints, Continuance of care, Re-evaluation by your physician Discharge Instructions: - Discharge Summary Sheet [facility] - Shoulder Pain [facility] Forms: - Medication Reconciliation Form [facility] - Thank You Letter [facility] - Antibiotic Education [facility] - Prescription Opioid Use [facility] Prescriptions: - Diclofenac Sodium 75 mg Oral Tablet Sustained Release - take 1 tablet by ORAL route 2 times per day; 30 tablet; Refills: 0, Product [facility] Selection Permitted Signatures: Dispatcher [employer] EDMS Louis Taveras PA PA jmm Nieto, Roman, MD MD rn Baxter, Heather, RN RN hb Davies, Jonathon, RN RN jd3
--- NOTE | 2021-12-10 14:05 | ER ---
Nurse's Notes [facility] Name: Judi Frank Age: 21 yrs Sex: Female : 2000 Arrival Date: 12/10/2021 Time: 12:49 Bed 17 Private MD: Diagnosis: Strain of unspecified muscle, fascia and tendon at shoulder and upper arm level, left arm Presentation: 12/10 12:58 Chief complaint: Right upper arm pain after mechanical fall from standing yesterday. hb Coronavirus screen: At this time, the client does not indicate any symptoms associated with coronavirus-19. Ebola Screen: No symptoms or risks identified at this time. Risk Assessment: Do you want to hurt yourself or someone else? Patient reports no desire to harm self or others. Onset of symptoms was December 09, 2021. 12:58 Method Of Arrival: Ambulatory hb 12:58 Acuity: NEIDA 4 hb 13:08 Initial Sepsis Screen: Does the patient meet any 2 criteria? No. Patient's initial jd3 sepsis screen is negative. Does the patient have a suspected source of infection? No. Patient's initial sepsis screen is negative. PRODUCTION EXPERT: 14:04 LMP N/A - Irregular menses jd3 Historical: - Allergies: 12:59 No Known Allergies; hb - Immunization history:: Adult Immunizations unknown. - Social history:: Smoking status: unknown. Screenin:10 Abuse screen: Denies threats or abuse. Nutritional screening: No deficits noted. jd3 Tuberculosis screening: No symptoms or risk factors identified. Fall Risk Fall in past 12 months (25 points). Ambulatory Aid- None/Bed Rest/Nurse Assist (0 pts). Gait- Normal/Bed Rest/Wheelchair (0 pts) Mental Status- Oriented to own ability (0 pts). Total Campbell Fall Scale indicates Low Risk Score (25-44 pts). Fall prevention measures have been instituted. Side Rails Up X 2 Placed close to Nursing Station Frequent Obs/Assesments occuring As available Patient and Family Educated on Fall Prevention Program and strategies. Assessment: 13:08 General: Appears in no apparent distress. comfortable, Behavior is calm, cooperative, jd3 appropriate for age. Pain: Complains of pain in right shoulder Quality of pain is described as aching, shooting, Aggravated by increased activity, repositioning. Neuro: Maria Agitation-Sedation Scale (RASS): 0 - Alert and Calm Level of Consciousness is awake, alert, obeys commands, Oriented to person, place, time, situation. Cardiovascular: Denies chest pain, Capillary refill < 3 seconds Patient's skin is warm and dry. Respiratory: Airway is patent Respiratory effort is even, unlabored, Respiratory pattern is regular, symmetrical, Denies cough, shortness of breath. GI: No signs and/or symptoms were reported involving the gastrointestinal system. : No signs and/or symptoms were reported regarding the genitourinary system. EENT: No signs and/or symptoms were reported regarding the EENT system. Derm: Skin is intact, Skin is dry, Skin is normal, Skin temperature is warm. Musculoskeletal: Circulation, motion, and sensation intact. Range of motion: limited in right shoulder. 14:11 Reassessment: Patient appears in no apparent distress at this time. Patient and/or jd3 family updated on plan of care and expected duration. Pain level reassessed. Patient is alert, oriented x 3, equal unlabored respirations, skin warm/dry/pink. Vital Signs: 12:58 BP 138 / 88; Pulse 84; Resp 16; Temp 98.1; Pulse Ox 100% ; Weight 113.4 kg; Height 5 hb ft. 3 in. (160.02 cm); Pain 7/10; 14:11 Pulse 82; Resp 16; Pulse Ox 100% on R/A; jd3 12:58 Body Mass Index 44.29 (113.40 kg, 160.02 cm) hb ED Course: 12:49 Patient arrived in ED. mr 12:54 Louis Taveras PA is PHCP. jmm 12:54 Carson Lund MD is Attending Physician. jmm 12:59 Triage completed. hb 13:04 Romel Harkins, LAVINIA is Primary Nurse. jd3 13:08 Arm band placed on. jd3 13:10 Ice pack to injury. jd3 13:10 Patient has correct armband on for positive identification. Bed in low position. Call jd3 light in reach. Side rails up X 1. Pulse ox on. NIBP on. 13:42 Shoulder Right (2 View) XRAY In Process Unspecified. EDMS 14:04 Elio Liriano MD is Referral Physician. m 14:11 No provider procedures requiring assistance completed. Patient did not have IV access jd3 during this emergency room visit. Administered Medications: No medications were administered Medication: 13:11 VIS not applicable for this client. jd3 Outcome: 14:04 Discharge ordered by . rusty 14:11 Discharged to home ambulatory. jd3 14:11 Condition: stable 14:11 Discharge instructions given to patient, Instructed on discharge instructions, follow up and referral plans. medication usage, Demonstrated understanding of instructions, follow-up care, medications, Prescriptions given X 1. 14:11 Patient left the ED. jd3 Signatures: Dispatcher [employer] EDMS Louis Taveras PA PA jmm Rivera, Mary mr Kezia Butcher, RN RN Romel Julian RN RN jd3
[2021-12-10 14:23] VITALS: BP 138/88; TEMP 98.1; O2SAT 100
== END 2021-12-10 14:11 | disposition home or self-care (01) ==
LOC: ER 12:46
DX: S46.911A Strain of unspecified muscle, fascia and tendon at shoulder and upper arm level, right arm, initial encounter (principal)
CPT/HCPCS: 99283

== ENCOUNTER 2022-03-13 07:43 | Emergency (ER) | payer OTHER ==
--- OUTSIDE RECORDS SUMMARY | 2022-03-13 07:46 | XMS REPORT | Continuity of Care Document ---
:2000 Author Organization [facility] t Address [address] [place] [address] Care Team Providers Name Role Phone Aleyda Fragoso Primary Care Physician [phone] ANISHA JORGENSEN Attending Clinician Unavailable Anisha Jorgensen MD Attending Clinician Doctor Unassigned, [place] Attending Clinician Unavailable ALEYDA BLOOD Attending Clinician Unavailable 2, [facility] Attending Clinician Unavailable Aleyda Fragoso Attending Clinician ALMA ROSA SAMAYOA Attending Clinician Unavailable Anthony Brown DO Attending Clinician Alma Rosa Samayoa MD Attending Clinician OSMANY JANSEN Attending Clinician Unavailable ANISHA JORGENSEN Admitting Clinician Unavailable Payers Payer Name Policy Type Policy Number Effective Date Expiration Date S la [place] [employer] [id number] 2020 HEALTH 00:00:00 Problems Condition Condition Condition Status Onset Resolution Last Treating Co mments Source Name Details Category Date Date Treatment Clinician Date Missed Missed Disease Active Univers 5-12 ity of 00:00: [place] 00 Medical Branch Maternal Maternal Disease Active Overview: Un bill varicella, varicella, 4-13 Formattin ity of non-immune non-immune 00:00: g of this [place] 00 note Medical might be Branch different from the original. Address in PP. Rubella Rubella Disease Active Overview: Univ ers non-immune non-immune 4-13 Formattin ity of status, status, 00:00: g of this [place] antepartum antepartum 00 note Me dical might [...] Active Univers ALLERGIE Class ity of S [facility] Social History Social Habit Start Date Stop Date Quantity Comments Source Exposure to 2021-07-08 2021-07-18 Not sure [facility] SARS-CoV-2 00:00:00 08:03:00 [facility] (event) [place] Alcohol intake 2021-07-18 2021-07-18 Ex-drinker [facility] 00:00:00 00:00:00 (finding) [facility] Tobacco use and 2017-05-13 2017-05-13 Never used Universit y of exposure 00:00:00 00:00:00 [facility] Sex Assigned At [birth year] Universit y of 00:00:00 00:00:00 [facility] Smoking Status Start Date Stop Date Source Never smoker [facility] Medications Ordered Filled Start Stop Current Ordering Indication Dosage Frequency Signature Comments Components Source Medication Medication Date Date Medication? Clinician (SIG) Name Name No known No Univers medications - ity of 08:38: [address] No known No Univers medications - ity of 08:38: [address] pyridoxine, 2021- No [id number] 25mg Take 1 Univers VITAMIN 5-04 07-18 tablet by ity of B-6, 00:00: 00:00 mouth [place] (VITAMIN 00 :00 every 6 Medical B-6) 25 mg (six) Branch tablet hours as needed for Nausea and Vomiting (N/V). doxylamine 2021- No [id number] 25mg Take 1 Univers (UNISOM, 06-21-31 tablet by ity o f DOXYLAMINE, 00:00: 00[place] 25 mg 00 :00 bedtime as Medica l tablet needed for Branch Nausea and Vomiting (N/V). metoclopram No [id number] 10mg Take 1 Univers dodie HCl 10 06-21 tablet by ity of mg tablet 00:00: 00:00 mouth [place] 00 :00 every 6 Medical (six) Branch hours as needed for Nausea and Vomiting (N/V). pyridoxine, No [id number] 25mg Take 1 Univers VITAMIN 06-21 tablet by ity of B-6, 00:00: 00:00 mouth [place] (VITAMIN 00 :00 every 6 Medical B-6) 25 mg (six) Branch tablet hours as needed for Nausea and Vomiting (N/V). doxylamine No [id number] 25mg Take 1 Univers (UNISOM, 06-2131 tablet by ity o f DOXYLAMINE, 00:00: 00:00 [place] 25 mg 00 :00 bedtime as Medica l tablet needed for Branch Nausea and Vomiting (N/V). metoclopram No [id number] 10mg Take 1 Univers dodie HCl 10 06-21 tablet by ity of mg tablet 00:00: 00:00 mouth [place] 00 :00 every 6 Medical (six) Branch hours as needed for Nausea and Vomiting (N/V). Nitrofurant No [id number] TAKE 1 Univers oin&Nit. 06-19 CAPSULE BY ity of [place] 00:00: 00:00 MOUTH [place] 100 mg 00 :00 EVERY 12 Medical capsule HOURS FOR Branch 10 DAYS Nitrofurant No [id number] TAKE 1 Univers oin&Nit. 06-19 CAPSULE BY ity of [place] 00:00: 00:00 MOUTH [place] 100 mg 00 :00 EVERY 12 Medical capsule HOURS FOR Branch 10 DAYS azithromyci 2021- No [id number] 500mg Take 1 Univers n 500 mg 05-31 tablet by ity o f tablet 00:00: 00:00 mouth [place] 00 :[address] [facility] azithromyci 2021- No [id number] 500mg Take 1 Univers n 500 mg 05-31 tablet by ity o f tablet 00:00: 00:00 mouth [place] 00 :00 daily. Medical Branch 2021- No [id number] 1{packe Take 1 Univers vit 05-30 t} Packet by ity of 33-iron-fol 00:00: 00:00 [place] ic-dha [place] :00 daily. Medical ([facility] [place] + DHA) 29 mg iron-1 mg -250 mg combo pack 2021- No [id number] 1{packe Take 1 Univers vit 05-30 t} Packet by ity of 33-iron-fol 00:00: 00:00 [place] ic-dha 00 :00 daily. Medical ([facility] [place] + DHA) 29 mg iron-1 mg -250 mg combo pack Immunizations Ordered Filled Immunization Date Status Comments [facility] Immunization Name Name SARS-COV-2 COVID-19 2020-12-12 Completed Unive rsity of PFIZER VACCINE 00:00:00 [facility] SARS-COV-2 COVID-19 2020-12-12 Completed Unive rsity of PFIZER VACCINE 00:00:00 [facility] SARS-COV-2 COVID-19 2020-12-12 Completed Unive rsity of PFIZER VACCINE 00:00:00 [facility] SARS-COV-2 COVID-19 2020-12-12 Completed Unive rsity of PFIZER VACCINE 00:00:00 [facility] Vital Signs Vital Name Observation Time Observation Value Comments Source Diastolic blood 2021-07-18 13:14:00 73 mm[Hg] Unive rsity of pressure [facility] Heart rate 2021-07-18 13:14:00 71 /min [facility] Body temperature 2021-07-18 13:14:00 36.78 [facility] height 2021-07-18 13:14:00 162.6 cm [facility] Body weight 2021-07-18 13:14:00 119.024 kg Universi ty [facility] BMI 2021-07-18 13:14:00 45.04 kg/m2 [facility] Systolic blood 2021-07-18 13:14:00 114 mm[Hg] Univer sity of pressure [facility] Procedures Procedure Date / Time Performing Clinician Source Performed US OB TRANSVAGINAL 2021-07-18 13:45:56 Anisha Jorgensen [facility] COMPLIANCE MONITOR [facility] 2021-07-18 05:01:00 Doctor Unassigned, No [facility] ULTRASOUND Name [facility] Encounters Start End Encounter Admission Attending Care Care Encounter Source Date/Time Date/Time Type Type Clinicians Facility Department ID 2021-08-07 2021-08-07 Outpatient R ANISHA JORGENSEN [facility] [id number] Univers 08:15:00 08:15:00 ity [facility] 2021-08-06 2021-08-06 Telephone Anisha Jorgensen [facility] 1.2.840.114 [id number] Univers 00:00:00 00:00:00 Ronald CAMACHO [id number] i ty of [place] [id number] Tn dical NAL [address] [place] [address] 2021-07-18 2021-07-18 Office Anisha Jorgensen [place] [id number] Univers 08:00:00 08:55:39 Visit Ronald CAMACHO [id number] i ty of [place].2.[place] [phone] Tn dicdorcas NAL [address] [place] [address] 2021-07-18 2021-07-18 Outpatient R ANISHA JORGENSEN [facility] [id number] Univers 08:00:00 08:55:39 ity of [facility] 2021-07-18 2021-07-18 Outpatient R ANISHA JORGENSEN [facility] [id number] Univers 08:00:00 08:00:00 ity [facility] 2021-07-18 2021-07-18 Orders Doctor DAVIES 1.2.840.114 [id number] Univers 00:00:00 00:00:00 Only Unassigned, GREGORY 350.1.13.10 ity of [place] [facility] 4.2.7.2.686 Billy as [id number] [facility] [address] [place] 2021-07-13 2021-07-13 Telephone Anisha Jorgensen [facility] 1.2.840.114 [id number] Univers 00:00:00 00:00:00 Cam [place] 350.1.13.10 i ty of [place] [id number] [facility] 2021-07-06 2021-07-06 Hospital Anisha Jorgensen [facility] 1.2.840.114 [id number] Univers 16:05:13 23:59:00 Encounter Cam [place] [id number] ity of [place]2.7.2.[place] [facility] [id number] [facility] 806 [place] 2021-07-06 2021-07-06 Outpatient R JAMEEL [facility] [id number] Univers 16:05:13 23:59:00 ity of [facility] 2021-07-06 2021-07-06 Orders Doctor KEKE 1.2.840.114 [id number] Univers 00:00:00 00:00:00 Only Unassigned, GREGORY 350.1.13.10 ity of [place] [facility] 4.2.7.2.686 Billy as [id number] [address] 2021-07-05 2021-07-05 Outpatient R [facility] [id number] Univers 11:00:00 11:00:00 ity of [facility] 2021-06-29 2021-06-29 Outpatient R JAMEEL [facility] [id number] Univers 09:30:00 10:46:28 ity of [facility] 2021-06-29 2021-06-29 Office Jameel Anisha [facility] [id number] Univers 09:30:00 10:46:28 Visit Cam [place] 350.1.13.10 i ty of [place] [id number] Tn dicmd NAL [address] [facility] 2021-06-292021-06-29 Orders Doctor KEKE 1.2.840.114 [id number] Univers 00:00:00 00:00:00 Only Unassigned, GREGORY 350.1.13.[address] [facility] 4.2.7.2.686 [place] as [id number] [address] 2021-06-27 2021-06-27 [facility] [id number] Univers 11:00:00 11:00:00 ALEYDA lanier o f [facility] 2021-06-27 2021-06-27 Outpatient R KARAN [facility] [id number] Univers 11:00:00 11:00:00 ALEYDA lanier o f [facility] 2021-06-26 2021-06-26 Commercial Light Fixture Assembler 2, Adc Lab [facility] 1.2.840.114 [id number] Univers 16:00:00 16:15:00 Visit Anisha Jorgensen 350.1.13.10 ity [facility] 4.2.7.2.[place] [phone] Tn dical NAL [address] [place] [address] 2021-06-26 2021-06-26 Outpatient R [facility] [id number] Univers 16:00:00 16:00:00 ity [facility] 2021-06-26 2021-06-26 Outpatient R ANISHA JORGENSEN [facility] [id number] Univers 16:00:00 16:00:00 ity of [facility] 2021-06-23 2021-06-23 Commercial Light Fixture Assembler 2, Adc Lab [facility] 1.2.840.114 [id number] Univers 16:00:00 16:15:00 Visit Anisha Jorgensen 350.1.13.10 ity of [place] 4[place].2.[place] [id number] Tn dical NAL [address] [place] [address] 2021-06-23 2021-06-23 Outpatient R [facility] [id number] Univers 16:00:00 16:00:00 ity [facility] 2021-06-23 2021-06-23 Outpatient R ANISHA JORGENSEN [facility] [id number] Univers 16:00:00 16:00:00 ity of [facility] 2021-06-23 2021-06-23 Outpatient R [facility] [id number] Univers 11:00:00 11:00:00 ity of [facility] 2021-06-21 2021-06-21 Commercial Light Fixture Assembler 2, Adc Lab [facility] 1.2.840.114 [id number] Univers 16:00:00 16:15:00 Visit Anisha Jorgensen 350.1.13.10 ity of [place] 4.2.7.2.[place] PROF[place] [id number] Tn dicdorcas NAL [address] [facility] 2021-06-21 2021-06-21 Outpatient R ANISHA JORGENSEN [facility] [id number] Univers 16:00:00 16:00:00 ity of [facility] 2021-06-21 2021-06-21 Initial Anisha Jorgensen [facility] [id number] Univers 10:00:00 10:59:11 Ronald CAMACHO 350.1.13.10 ity of Visit [place].2.[place] [id number] Tn dical NAL [address] [facility] 2021-06-21 2021-06-21 Outpatient R ANISHA JORGENSEN [facility] [id number] Univers 10:00:00 10:59:11 ity of [facility] 2021-06-21 2021-06-21 Orders Doctor KEKE 1.2.840.114 [id number] Univers 00:00:00 00:00:00 Only Unassigned, GREG[place] 350.1.13.10 ity of [place] [facility] 4.2.7.2.686 Billy as [id number] [address] 2021-06-19 2021-06-19 Telephone Anisha Jorgensen [facility] 1.2.840.114 [id number] Univers 00:00:00 00:00:00 Ronald CAMACHO 350.1.13.10 i ty of [place].2.[place] [id number] Tn dical NAL [address] [facility] 2021-05-31 2021-05-31 Telephone [facility] [id number] Univers 00:00:00 00:00:00 Roshunda R COMPLIANCE MONITOR 350.1.13.10 ity of REGIONAL 4.2.7.2.686 Billy as MATERNAL [id number] [facility] & [address] 2021-05-31 2021-05-31 [facility] [id number] Univers 00:00:00 00:00:00 Roshunda R COMPLIANCE MONITOR 350.1.13.10 ity of REGIONAL 4.2.7.2.686 Billy as MATERNAL [id number] [address] 2021-05-30 2021-05-30 [facility] [id number] Univers 10:00:00 10:59:06 ROSHUNDA ity o f [facility] 2021-05-30 2021-05-30 Initial [facility] 1.2.840.114 [id number] Univers 10:00:00 10:59:06 Roshunda R COMPLIANCE MONITOR 350.1.13.10 ity of Visit REGIONAL 4.2.7.2.686 [place] as MATERNAL [id number] [address] 2021-05-30 2021-05-30 Orders Doctor KEKE 1.2.840.114 [id number] Univers 00:00:00 00:00:00 Only Unassigned, GREGORY 350.1.13.10 ity of [place] [facility] 4.2.7.2.686 Billy as [phone] [address] 2020-10-13 2020-10-13 Outpatient R DANITA [facility] [id number] Univers 14:00:00 14:00:00 ALMA ROSA lanier of [facility] 2020-05-10 2020-05-10 Patient Kevin [facility] 1.2.840.114 [id number] Univers 00:00:00 00:00:00 Outreach Anthony PRIMARY 350.1.13.10 i ty of [facility] 4.2.7.2.[place] JADEON [id number] Tn dical [address] [place] 2020-04-15 2020-04-15 Office Ad, [facility] 1.2.840.114 [id number] Univers 14:44:03 16:06:32 Visit Alma Rosa Solorzano [place] 350.1.13.10 ity of [place] 4[place].2.[place] Profess[place] [id number] Tn dical nal 134 [facility] 2020-04-15 2020-04-15 Outpatient R AD, [facility] [id number] Univers 15:00:00 15:00:00 ALMA ROSA yannick [facility] 2020-04-15 2020-04-15 Orders Doctor KEKE 1.2.840.114 [id number] Univers 00:00:00 00:00:00 Only Unassigned, GREGORY 350.1.13.10 ity of [place] [facility] 4.2.7.2.686 Billy as [id number] [address] 2020-04-01 2020-04-01 Case Adum, [facility] 1.2.840.114 [id number] Univers 00:00:00 00:00:00 Management Alma Rosa Solorzano [place] 350.1.13.10 ity of [place] 4.2.7.2.[place] Profess[place] [id number] Tn dical nal [address] [place] [address] 2020-03-31 2020-03-31 Office Ad, [facility] 1.2.840.114 [id number] Univers 15:10:04 16:47:36 Visit Alma Rosa [place] 350.1.13.10 ity of [place] 4.2.7.2.686 [place] Profess[place] [id number] Tn dical nal [address] [place] [address] 2020-03-31 2020-03-31 Outpatient R AD, [facility] [id number] Univers 15:30:00 15:30:00 ALMA ROSA yannick [facility] 2020-03-31 2020-03-31 Orders Doctor KEKE 1.2.840.114 [id number] Univers 00:00:00 00:00:00 Only Unassigned, GREGORY 350.1.13.10 ity of [place] [facility] 4.2.7.2.686 Billy as [id number] [place] [address] Branch 2019-05-25 2019-05-25 Outpatient Zoraida JANSEN [facility] [id number] [facility] 15:00:00 15:00:00 OSMANY lanier of [facility] Results This patient has no known results.
--- NOTE | 2022-03-13 07:55 | ER ---
Nurse's Notes [facility] Name: Judi Frank Age: 22 yrs Sex: Female : 2000 Arrival Date: 03/13/2022 Time: 07:45 Bed Waiting Private MD: Diagnosis: Periorbital cellulitis Presentation: 03/13 07:52 Chief complaint: Patient states: Redness, swelling and tenderness under R eye that ss began yesterday. Coronavirus screen: Client denies travel out of the [place] in the last 14 days. Ebola Screen: Patient denies exposure to infectious person. Patient denies travel to an Ebola-affected area in the 21 days before illness onset. Initial Sepsis Screen: Does the patient meet any 2 criteria? No. Patient's initial sepsis screen is negative. Does the patient have a suspected source of infection? No. Patient's initial sepsis screen is negative. Risk Assessment: Do you want to hurt yourself or someone else? Patient reports no desire to harm self or others. Onset of symptoms was March 12, 2022. 07:52 Method Of Arrival: Ambulatory ss 07:52 Acuity: NEIDA 4 ss CONCRETE MIXER: 07:54 LMP 03/04/2022 ss Historical: - Allergies: 07:54 No Known Allergies; ss - Home Meds: 07:54 None [Active]; ss - PMHx: 07:54 Anemia; ss - PSHx: 07:54 None; ss - Immunization history:: Client reports receiving the 1st dose of the Covid vaccine. - Social history:: Smoking status: Reported history of juuling and/or vaping. Screenin:55 [facility] ED Fall Risk Assessment (Adult) History of falling in the last 3 months, ss including since admission No falls in past 3 months (0 pts). Abuse screen: Denies threats or abuse. Denies injuries from another. Nutritional screening: No deficits noted. Tuberculosis screening: Assessment: 07:55 General: Appears in no apparent distress. comfortable, Behavior is calm, cooperative. ss Pain: Complains of pain in medial canthus of right eye and right lower eyelid Pain currently is 0 out of 10 on a pain scale. at worst was 4 out of 10 on a pain scale. Quality of pain is described as tender, Pain began 1 day ago. Is continuous, Aggravated by upon palpation. Neuro: Level of Consciousness is awake, alert, obeys commands, Oriented to person, place, time, situation. Respiratory: Airway is patent Respiratory effort is even, unlabored, Respiratory pattern is regular, symmetrical. Derm: Skin is intact, is healthy with good turgor, Skin is pink, warm \T\ dry. normal, slight redness noted to affected area. Vital Signs: 07:52 BP 133 / 82; Pulse 104; Resp 16; Temp 97.9(TE); Pulse Ox 100% on R/A; Weight 113.4 kg; ss Height 5 ft. 3 in. (160.02 cm); Pain 0/10; 07:52 Body Mass Index 44.29 (113.40 kg, 160.02 cm) ss ED Course: 07:45 Patient arrived in ED. rg4 07:50 Nicholas Good DO is Attending Physician. ms3 07:54 Triage completed. ss 07:54 Jimmy Gallegos DO is Referral Physician. ms3 07:54 Arm band placed on left wrist. ss 07:55 Patient has correct armband on for positive identification. Bed in low position. ss 07:55 No provider procedures requiring assistance completed. Patient did not have IV access ss during this emergency room visit. Administered Medications: No medications were administered Medication: 07:55 VIS not applicable for this client. ss Outcome: 07:55 Discharge ordered by . ms3 08:02 Discharged to home ambulatory. ss 08:02 Condition: good 08:02 Discharge instructions given to patient, Instructed on discharge instructions, follow up and referral plans. medication usage, Demonstrated understanding of instructions, follow-up care, medications, Prescriptions given X 2. 08:02 Patient left the ED. ss Signatures: Maritza Caceres, RN RN Jania Ji rg4 Nicholas Good DO DO ms3
--- NOTE | 2022-03-13 07:55 | EDPHYS ---
Physician Documentation [facility] Name: Judi Frank Age: 22 yrs Sex: Female : 2000 Arrival Date: 03/13/2022 Time: 07:45 Bed Waiting Private MD: ED Physician Nicholas Good HPI: 03/13 07:58 This 22 yrs old Female presents to ER via Ambulatory with complaints of Eye Swelling. ms3 07:58 22-year-old female presents for right inferior eye swelling that began yesterday. ms3 Patient states the area is tender to palpation. Patient denies pain to the area. Patient denies pain with movement of her eyes, Fevers, chills.. 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 - Social history:: Smoking status: Reported history of juuling and/or vaping. ROS: 07:58 Constitutional: Negative for fever, and chills. ms3 07:58 Respiratory: Negative for shortness of breath, cough, wheezing, and pleuritic chest pain, Abdomen/GI: Negative for abdominal pain, nausea, vomiting, diarrhea, and constipation, MS/Extremity: Negative for injury and deformity, Skin: Negative for injury, rash, and discoloration. 07:58 Eyes: Positive for swelling. 07:58 All other systems are negative. Exam: 07:58 Constitutional: This is a well developed, well nourished patient who is awake, alert, ms3 and in no acute distress. Head/Face: Normocephalic, atraumatic. 07:58 Chest/axilla: Normal chest wall appearance and motion. Nontender with no deformity. Cardiovascular: Regular rate and rhythm with a normal S1 and S2. No gallops, murmurs, or rubs. Normal PMI, no JVD. No pulse deficits. Back: No spinal tenderness. No costovertebral tenderness. Full range of motion. Neuro: Awake and alert, GCS 15, oriented to person, place, time, and situation. Cranial nerves II-XII grossly intact. Motor strength 5/5 in all extremities. Sensory grossly intact. Cerebellar exam normal. Normal gait. 07:58 Eyes: Periorbital structures: cellulitis, that is mild, on the right lower eyelid, erythema, that is mild, on the right lower eyelid, swelling, that is mild, on the right lower eyelid. Vital Signs: 07:52 BP 133 / 82; Pulse 104; Resp 16; Temp 97.9(TE); Pulse Ox 100% on R/A; Weight 113.4 kg; ss Height 5 ft. 3 in. (160.02 cm); Pain 0/10; 07:52 Body Mass Index 44.29 (113.40 kg, 160.02 cm) ss MDM: 07:53 Patient medically screened. ms3 07:58 Differential diagnosis: Periorbital cellulitis. Data reviewed: vital signs, nurses ms3 notes, and as a result, I will discharge patient. I considered the following discharge prescriptions or medication management in the emergency department See Rx given. Counseling: I had a detailed discussion with the patient and/or guardian regarding: the historical points, exam findings, and any diagnostic results supporting the discharge/admit diagnosis, the need for outpatient follow up, to return to the emergency department if symptoms worsen or persist or if there are any questions or concerns that arise at home. ED course: Discussed physical exam findings with patient. Patient to follow-up with Dr. Gallegos in 2 to 3 days. Patient understands and agrees with plan. All questions were answered. Return precautions discussed include worsening symptoms, or any other concerns.. Administered Medications: No medications were administered Disposition Summary: 03/13/22 07:55 Discharge Ordered Location: Home ms3 Condition: Stable ms3 Diagnosis - Periorbital cellulitis ms3 Followup: ms3 - With: Jimmy Gallegos DO - When: 2 - 3 days - Reason: Recheck today's complaints Discharge Instructions: - Discharge Summary Sheet ms3 - Preseptal Cellulitis, Adult ms3 Forms: - Medication Reconciliation Form ms3 - Thank You Letter ms3 - Antibiotic Education ms3 - Prescription Opioid Use ms3 Prescriptions: - Augmentin 875-125 mg Oral Tablet - take 1 tablet by ORAL route every 12 hours for 5 days; 10 tablet; Refills: 0, ms3 Product Selection Permitted - Clindamycin HCl 300 mg Oral Capsule - take 1 capsule by ORAL route every 8 hours for 10 days; 15 capsule; Refills: 0, ms3 Product Selection Permitted Signatures: Maritza Caceres, LAVINIA RN ss Nicholas Good, DO [place] ms3
[2022-03-13 08:07] VITALS: BP 133/82; TEMP 97.9; O2SAT 100
== END 2022-03-13 08:02 | disposition home or self-care (01) ==
LOC: ER 07:43
DX: L03.213 Periorbital cellulitis (principal)
CPT/HCPCS: 99282

== ENCOUNTER 2022-12-02 17:28 | Emergency (ER) | payer OTHER ==
--- OUTSIDE RECORDS SUMMARY | 2022-12-02 17:31 | XMS REPORT | Continuity of Care Document ---
:[address] [facility] t Address [address] [facility] [address] [place] [address] Care Team Providers Name Role Phone Aleyda Fragoso Primary Care Physician Unavailable GHAZALA PAN Attending Clinician Unavailable Maxim Ghazala RAIN Attending Clinician [phone] GABBY ALMAZAN Attending Clinician Unavailable Gabby Almazan CNM Attending Clinician Santiago Jenkins RN, Devorah Beatty Attending Clinician Unavailable ELLIOTT VENTURA Attending Clinician Unavailable Ultrasound, Ang-Mfm Attending Clinician Unavailable Elliott [place] MD Attending Clinician [phone] ANISHA JORGENSEN Attending Clinician Unavailable Doctor Unassigned, [place] Attending Clinician Unavailable Anisha Jorgensen MD Attending Clinician ALEYDA RUSSO Attending Clinician Unavailable 2, [facility] Attending Clinician Unavailable Aleyda Fragoso Attending Clinician ALMA ROSA SANDOVAL Attending Clinician Unavailable Anthony Brown DO Attending Clinician Alma Rosa Sandoval MD Attending Clinician OSMANY JANSEN Attending Clinician Unavailable ANISHA JORGENSEN Admitting Clinician Unavailable Payers Payer Name Policy Type Policy Number Effective Date Expiration Date Jaci [employer] [id number] 2022 00:00:00 Problems Condition Condition Condition Status Onset Resolution Last Treating Co mments Source Name Details Category Date Date Treatment Clinician Date 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 Papanicola Papanicola Repeat ou smear ou smear pap in 1 of cervix of cervix year 11/2023 Declines Declines Disease Active 2022-02 Unive rs flu flu 0-10 ity of vaccine vaccine 00:00: Medical Branch History of History of Disease Active U nivers miscarriag miscarriag 9-25 it y of e e 00:00: Medical Branch Supervisio Supervisio Disease Active U nivers n of n of 9-25 ity of high-risk [place] [facility] Missed Missed Disease Active Univers 5-12 ity of 00:00: [place] 00 Medical Branch Maternal Maternal Disease Active Overview: Un bill varicella, varicella, 4-13 Formattin ity of non-immune non-immune 00:00: g of this [place] 00 note Medical might be Branch different from the original. Address in PP. Rubella Rubella Disease Active Overview: Univ ers non-immune non-immune 4-13 Formattin ity of status, status, 00:00: g of this [place] antepartum antepartum 00 note Me dical might be Branch different from the original. Address in PP. Nausea and Nausea and Disease Active U nivers vomiting vomiting 4-12 ity of during during 00:00: [place] 00 [facility] Morbid Morbid Disease Active Univers obesity obesity 2-11 ity of with body [place] body [place] mass index mass index 00 Me dical of of Branch 40.0-49.9 40.0-49.9 Obesity in Obesity in Disease Active U nivers 2-11 ity of 00:00: [address] Allergies, Adverse Reactions, Alerts Allergy Allergy Status Severity Reaction(s) Onset Inactive Treating Comm ents Source Name Type Date Date Clinician NO KNOWN Drug Active Univers ALLERGIE Class ity of S [facility] Social History Social Habit Start Date Stop Date Quantity Comments Source ASSERTION 2022-10-19 [facility] 00:00:00 [facility] intake 2022-11-27 2022-11-27 Ex-drinker [facility] 00:00:00 00:00:00 (finding) [facility] Tobacco use and 2022-11-12 2022-11-12 User of Universit y of exposure 00:00:00 00:00:00 smokeless [facility] tobacco [place] Tobacco Comment 2022-11-12 2022-11-12 Vapes daily [facility] of 00:00:00 00:00:00 since age 15 [facility] Exposure to 2021-07-08 2021-07-18 Not sure [facility] SARS-CoV-2 (event) 00:00:00 08:03:00 [facility] History of Social 2021-05-30 2021-05-30 Univers ity of function 00:00:00 00:00:00 [facility] Sex Assigned At [birth year] Universit y of 00:00:00 00:00:00 [facility] Smoking Status Start Date Stop Date Source Never smoked tobacco [facility] Medications Ordered Filled Start Stop Current Ordering Indication Dosage Frequency Signature Comments Components Source Medication Medication Date Date Medication? Clinician (SIG) Name Name doxylamine- 2022-02 Yes Day 1: Univers pyridoxine, 0-12 Take 2 ity of vit B6, 00:00: tablet [place] (DICLEGIS) 00 before Medical 10-10 mg bed. Day Branch per tablet 2: If still having nausea and vomiting 2 tablet bed. Day 3 take 1 tablet in am and 2 tablet at bed doxylamine- 2022-02 Yes Day 1: Univers pyridoxine, 0-12 Take 2 ity of vit B6, 00:00: tablet [place] (DICLEGIS) 00 before Medical 10-10 mg bed. Day Branch per tablet 2: If still having nausea and vomiting 2 tablet bed. Day 3 take 1 tablet in am and 2 tablet at bed doxylamine- 2022-02 Yes [id number] Day 1: Univers pyridoxine, 0-12 Take 2 ity of vit B6, 00:00: tablet [place] (DICLEGIS) 00 before Medical 10-10 mg bed. Day Branch per tablet 2: If still having nausea and vomiting 2 tablet bed. Day 3 take 1 tablet in am and 2 tablet at bed proMETHazin 2022-02 Yes [id number] 25mg Take 1 Univers e 25 mg 0-10 tablet by ity of tablet 00:00: mouth [place] 00 every 4 Medical (four) Branch hours as needed for Nausea and Vomiting (N/V). proMETHazin 2022-02 Yes [id number] 25mg Take 1 Univers e 25 mg 0-10 tablet by ity of tablet 00:00: mouth [place] 00 every 4 Medical (four) Branch hours as needed for Nausea and Vomiting (N/V). proMETHazin 2022-02 Yes [id number] 25mg Take 1 Univers e 25 mg 0-10 tablet by ity of tablet 00:00: mouth [place] 00 every 4 Medical (four) Branch hours as needed for Nausea and Vomiting (N/V). proMETHazin 2022-02 Yes [id number] 25mg Take 1 Univers e 25 mg 0-10 tablet by ity of tablet 00:00: mouth [place] 00 every 4 Medical (four) Branch hours as needed for Nausea and Vomiting (N/V). Yes [id number] 1{tbl} Take 1 U nivers hmq04-txmt- 9-25 tablet by ity of folic acid 00:00: mouth in [place] as 29 mg iron- 00 the Medical 1 mg per morning. Branch tablet Yes [id number] 1{tbl} Take 1 U nivers sxd69-xzjo- 9-25 tablet by ity of folic acid 00:00: mouth in [place] as 29 mg iron- 00 the Medical 1 mg per morning. Branch tablet Yes [id number] 1{tbl} Take 1 U nivers saj59-wjlu- 9-25 tablet by ity of folic acid 00:00: mouth in [place] as 29 mg iron- 00 the Medical 1 mg per morning. Branch tablet Yes [id number] 1{tbl} Take 1 U nivers ody33-pzfd- 9-25 tablet by ity of folic acid 00:00: mouth in [place] as 29 mg iron- 00 the Medical 1 mg per morning. Branch tablet Yes [id number] 1{tbl} Take 1 U nivers gjl28-govb- 9-25 tablet by ity of folic acid 00:00: mouth in [place] as 29 mg iron- 00 the Medical 1 mg per morning. Branch tablet Yes [id number] 1{tbl} Take 1 U nivers fbd18-hqcc- 9-25 tablet by ity of folic acid 00:00: mouth in [place] as 29 mg iron- 00 the Medical 1 mg per morning. Branch tablet Yes [id number] 1{tbl} Take 1 U nivers kmw19-waul- 9-25 tablet by ity of folic acid 00:00: mouth in [place] as 29 mg iron- 00 the Medical 1 mg per morning. Branch tablet Yes [id number] 1{tbl} Take 1 U nivers xuw46-zcqr- 9-25 tablet by ity of folic acid 00:00: mouth in [place] as 29 mg iron- 00 the Medical 1 mg per morning. Branch tablet Yes [id number] 1{tbl} Take 1 U nivers gpo59-mwsb- 9-25 tablet by ity of folic acid 00:00: mouth in [place] 29 mg iron- 00 the Medical 1 mg per morning. Branch tablet Yes [id number] 1{tbl} Take 1 U nivers xyb78-pqik- 9-25 tablet by ity of folic acid 00:00: mouth in [place] 29 mg iron- 00 the Medical 1 mg per morning. Branch tablet Yes [id number] 1{tbl} Take 1 U nivers sao63-yuxh- 9-25 tablet by ity of folic acid 00:00: mouth in [place] 29 mg iron- 00 the Medical 1 mg per morning. Branch tablet No known No Univers medications 5-31 ity of 08:38: [address] Branch No known No Univers medications 5-31 ity of 08:38: [address] pyridoxine, 2021- No [id number] 25mg Take 1 Univers VITAMIN 5-04 05-31 tablet by ity of B-6, 00:00: 00:00 mouth [place] (VITAMIN 00 :00 every 6 Medical B-6) 25 mg (six) Branch tablet hours as needed for Nausea and Vomiting (N/V). doxylamine 0 2021- No [id number] 25mg Take 1 Univers (UNISOM, 06-21-31 tablet by ity o f DOXYLAMINE, 00:00: 00:[place] 25 mg 00 :00 bedtime as Medica l tablet needed for Branch Nausea and Vomiting (N/V). metoclopram 0 2021- No [id number] 10mg Take 1 Univers dodie HCl 10 06-21-31 tablet by ity of mg tablet 00:00: 00:00 mouth [place] 00 :00 every 6 Medical (six) Branch hours as needed for Nausea and Vomiting (N/V). pyridoxine, 2021- No [id number] 25mg Take 1 Univers VITAMIN 06-21-31 tablet by ity of B-6, 00:00: 00:00 mouth [place] (VITAMIN 00 :00 every 6 Medical B-6) 25 mg (six) Branch tablet hours as needed for Nausea and Vomiting (N/V). doxylamine 0 2021- No [id number] 25mg Take 1 Univers (UNISOM, 06-21-31 tablet by ity o f DOXYLAMINE, 00:00: 00:00 [place] 25 mg 00 :00 bedtime as Medica l tablet needed for Branch Nausea and Vomiting (N/V). metoclopram 0 2021- No [id number] 10mg Take 1 Univers dodie HCl 10 06-2131 tablet by ity of mg tablet 00:00: 00:00 mouth [place] 00 :00 every 6 Medical (six) Branch hours as needed for Nausea and Vomiting (N/V). Nitrofurant 2021- No [id number] TAKE 1 Univers oin&Nit. 5- 05-31 CAPSULE BY ity of Macrocryst 00:00: 00:00 MOUTH [place] 100 mg 00 :00 EVERY 12 Medical capsule HOURS FOR Branch 10 DAYS Nitrofurant 2021- No [id number] TAKE 1 Univers oin&Nit. 5-02 05-31 CAPSULE BY ity of Macrocryst 00:00: 00:00 MOUTH [place] 100 mg 00 :00 EVERY 12 Medical capsule HOURS FOR Branch 10 DAYS azithromyci 2021- No [id number] 500mg Take 1 Univers n 500 mg 05-31 tablet by ity o f tablet 00:00: 00:00 mouth [place] 00 :00 daily. [facility] azithromyci 2021- No [id number] 500mg Take 1 Univers n 500 mg 05-31 tablet by ity o f tablet 00:00: 00:00 mouth [place] 00 :00 daily. Medical Branch 2021- No [id number] 1{packe Take 1 Univers vit 05-30 t} Packet by ity of 33-iron-fol 00:00: 00:00 [place] ic-dha 00 :00 daily. [facility] [place] + DHA) 29 mg iron-1 mg -250 mg combo pack 2021- No [id number] 1{packe Take 1 Univers vit 05-30 t} Packet by ity of 33-iron-fol 00:00: 00:00 mouth [place] ic-dha 00 :00 daily. Medical ([facility] + DHA) 29 mg iron-1 mg -250 mg combo pack Immunizations Ordered Filled Date Status Comments Source Immunization Name Immunization Name SARS-COV-2 COVID-19 2020-12-12 Completed Unive rsity of PFIZER VACCINE 00:00:00 [facility] SARS-COV-2 COVID-19 2020-12-12 Completed Unive rsity of PFIZER VACCINE 00:00:00 [facility] SARS-COV-2 COVID-19 2020-12-12 Completed Unive rsity of PFIZER VACCINE 00:00:00 [facility] SARS-COV-2 COVID-19 2020-12-12 Completed Unive rsity of PFIZER VACCINE 00:00:00 [facility] SARS-COV-2 COVID-19 Unknown Completed Unive rsity of PFIZER VACCINE [facility] SARS-COV-2 COVID-19 Unknown Completed Unive rsity of PFIZER VACCINE [facility] SARS-COV-2 COVID-19 Unknown Completed Unive rsity of PFIZER VACCINE [facility] Branch SARS-COV-2 COVID-19 Unknown Completed Unive rsity of PFIZER VACCINE [facility] Branch SARS-COV-2 COVID-19 Unknown Completed Unive rsity of PFIZER VACCINE [facility] Branch SARS-COV-2 COVID-19 Unknown Completed Unive rsity of PFIZER VACCINE [facility] Branch SARS-COV-2 COVID-19 Unknown Completed Unive rsity of PFIZER VACCINE [facility] Branch SARS-COV-2 COVID-19 Unknown Completed Unive rsity of PFIZER VACCINE [facility] Branch SARS-COV-2 COVID-19 Unknown Completed Unive rsity of PFIZER VACCINE [facility] Branch SARS-COV-2 COVID-19 Unknown Completed Unive rsity of PFIZER VACCINE [facility] Branch SARS-COV-2 COVID-19 Unknown Completed Unive rsity of PFIZER VACCINE [facility] Branch SARS-COV-2 COVID-19 Unknown Completed Unive rsity of PFIZER VACCINE [facility] Branch Vital Signs Vital Name Observation Time Observation Value Comments Source Systolic blood 2022-11-27 18:29:00 126 mm[Hg] Univer sity of [facility] Diastolic blood 2022-11-27 18:29:00 84 mm[Hg] Unive rsity of [facility] Heart rate 2022-11-27 18:29:00 100 /min [facility] Body temperature 2022-11-27 18:29:00 36.56 Shima [facility] Respiratory rate 2022-11-27 18:29:00 20 /min [facility] Body height 2022-11-27 18:29:00 162.6 cm [facility] Body weight 2022-11-27 18:29:00 123.52 kg [facility] BMI 2022-11-27 18:29:00 46.74 kg/m2 [facility] Systolic blood 2022-11-12 18:42:00 120 mm[Hg] Univer sity of [facility] Diastolic blood 2022-11-12 18:42:00 60 mm[Hg] Unive rsity of pressure [facility] Heart rate 2022-11-12 18:38:00 90 /min [facility] Body temperature 2022-11-12 18:38:00 36.78 Shima [facility] Respiratory rate 2022-11-12 18:38:00 18 /min [facility] Body height 2022-11-12 18:38:00 162.6 cm Universi ty [facility] Body weight 2022-11-12 18:38:00 127.098 kg Universi ty [facility] BMI 2022-11-12 18:38:00 48.10 kg/m2 Universi ty [facility] Systolic blood 2021-07-18 13:14:00 114 mm[Hg] [facility] Diastolic blood 2021-07-18 13:14:00 73 [facility]Hg[facility] 2021-07-18 13:14:00 71 [facility] Body temperature 2021-07-18 13:14:00 36.78 Shima [facility] Body height 2021-07-18 13:14:00 162.6 cm [facility] Body weight 2021-07-18 13:14:00 119.024 [facility] BMI 2021-07-18 13:14:00 45.04 kg/m2 [facility] Procedures Procedure Date / Time Performing Clinician Source Performed POCT URINALYSIS 2022-11-27 18:29:00 Ghazala Pan [facility] SECOND AND THIRD 2022-11-20 15:35:00 Ghazala Pan [facility] TRIMESTER ULTRASOUND Medical [facility] POCT URINALYSIS W/O 2022-11-12 18:29:00 Ghazala Pan Uni [facility] SPECIFIC GRAVITY [facility] POCT TEST 2022-11-12 18:27:00 Ghazala Pan Uni [facility] CONSENT/REFUSAL FOR 2022-11-12 18:02:53 Doctor Unassigned, [facility] Name Medical Branch OB TRANSVAGINAL 2021-07-18 13:45:56 Anisha Jorgensen [facility] 2021-07-18 05:01:00 Doctor Unassigned, No [facility] ULTRASOUND Name [facility] Branch Encounters Start End Encounter Admission Attending Care Care Encounter Source Date/Time Date/Time Type Type Clinicians Facility Department ID 2023-01-01 2023-01-01 Outpatient [facility] [id number] Univers 15:00:00 15:00:00 ity of [facility] 2022-11-28 2022-11-28 [facility] 1.2.840.114 [id number] Univers 00:00:00 00:00:00 Ghazala Ann [employer]ST[employer] DEVELOPER 350.1.13.10 ity of [facility] 4.2.7.2.686 [place] as MATERNAL [id number] [facility] ical & CHILD [address] [place] [address] 2022-11-27 2022-11-27 [facility] [id number] Univers 13:30:00 13:44:51 GABBY ity of [facility] 2022-11-27 2022-11-27 [facility] 1.2.840.114 [id number] Univers 13:30:00 13:44:51 Gabby A [employer]STACK DEVELOPER 350.1.13.10 ity of Visit REGIONAL 4.2.7.2.686 [place] as MATERNAL [id number] [facility] & CHILD [address] [place] [address] 2022-11-26 2022-11-26 Nurse Santiago Jenkins, KEKE 1.2.840.114 [id number] Univers 00:00:00 00:00:00 Triage Devorah S GREGORY 350.1.13.10 ity of [facility] 4.2.7.2.686 [place] as [id number] [address] 2022-11-22 2022-11-22 Abstract [facility] 1.2.840.114 [id number] Univers 00:00:00 00:00:00 Ghazala Ann [employer]STACK DEVELOPER 350.1.13.10 ity of REGIONAL 4.2.7.2.686 [place] as MATERNAL [id number] [facility] ical & CHILD [address] [place] [address] 2022-11-20 2022-11-20 Outpatient Taco [facility] [id number] Univers 10:00:00 11:46:58 ALEKSANDER it y of S, GALLAGHER [facility] 2022-11-20 2022-11-20 Contemporary Or Modern [facility] 1.2 .840.114 [id number] Univers 10:00:00 11:46:58 Visit Cyn Pérezcadnicesugar Gallagher [employer]STACK DEVELOPER 350.1. 13.10 ity of [facility] 4.2.7.2.686 [place] as MATERNAL [phone] Med ical & CHILD [address] [facility] 2022-11-12 2022-11-12 Outpatient R MAXIM [facility] [id number] Univers 13:45:00 14:44:56 GHAZALA ity o f [facility] 2022-11-12 2022-11-12 [facility] [id number] Univers 13:45:00 14:44:56 Ghazala Ann OPENSTACK DEVELOPER 350.1.13.10 ity of Visit [facility] 4.2.7.2.686 [place] as MATERNAL [phone] Med ical & CHILD 107 [facility] 2022-11-12 2022-11-12 Orders Doctor KEKE 1.2.840.114 [id number] Univers 00:00:00 00:00:00 Only Unassigned, GREGORY 350.1.13.10 ity of [place] [facility] 4.2.7.2.686 [place] as [id number] [address] 2021-08-07 2021-08-07 Outpatient R [facility] [id number] Univers 08:15:00 08:15:00 ity of [facility] 2021-08-06 2021-08-06 Telephone Anisha Jorgensen WYJOLENE 1.2.840.114 [id number] Univers 00:00:00 00:00:00 Ronald CAMACHO 350.1.13.10 i ty [facility] 4.2.7.2.686 [place] [id number] Nd dical [address] 2021-07-18 2021-07-18 Office Anisha Jorgensen [place] [id number] Univers 08:00:00 08:55:39 Visit Cam JANICE 350.1.13.10 i ty of [place] 4.2.7.2.686 [place] [id number] [facility] 134 [facility] 2021-07-18 2021-07-18 Outpatient R JAMEEL [facility] [id number] Univers 08:00:00 08:55:39 ity of [facility] 2021-07-18 2021-07-18 Outpatient R JAMEEL [facility] [id number] Univers 08:00:00 08:00:00 ity of [facility] 2021-07-18 2021-07-18 Orders Doctor KEKE 1.2.840.114 [id number] Univers 00:00:00 00:00:00 Only Unassigned, GREGORY 350.1.13.10 ity of [place] [facility] 4.2.7.2.686 [place] as [id number] [facility] [address] [place] 2021-07-13 2021-07-13 [facility] 1.2.840.114 [id number] Univers 00:00:00 00:00:00 Cam JANICE 350.1.13.10 i ty of [place] 4.2.7.2.686 [place] [id number] [address] 2021-07-06 2021-07-06 Outpatient R JAMEEL [facility] [id number] Univers 16:05:13 23:59:00 ity of [facility] 2021-07-06 2021-07-06 [facility] 1.2.840.114 [id number] Univers 16:05:13 23:59:00 Encounter Ronald CAMACHO 350.1.13.10 ity of [place] 4.2.7.2.686 [place] [id number] [facility] 806 [place] 2021-07-06 2021-07-06 Orders Doctor DAVIES 1.2.840.114 [id number] Univers 00:00:00 00:00:00 Only Unassigned, GREGORY 350.1.13.10 ity of [place] [facility] 4.2.7.2.686 [place] as [id number] [address] 2021-07-05 2021-07-05 Outpatient [facility] [id number] Univers 11:00:00 11:00:00 ity of [facility] 2021-06-29 2021-06-29 Outpatient R JAMEEL ANISHA [facility] [id number] Univers 09:30:00 10:46:28 ity of [facility] 2021-06-29 2021-06-29 Office Anisha Jorgensen [place] [id number] Univers 09:30:00 10:46:28 Visit Ronald CAMACHO 350.1.13.10 i ty of [facility] 4.2.7.2.[place] [id number] Nd dical NAL 134 [facility] 2021-06-29 2021-06-29 Orders Doctor KEKE 1.2.840.114 [id number] Univers 00:00:00 00:00:00 Only Unassigned, GREGORY 350.1.13.10 [facility] 4.2.7.2.686 [place] as [id number] [address] 2021-06-27 2021-06-27 [facility] [id number] Univers 11:00:00 11:00:00 ROSANNA ity o f [facility] 2021-06-27 2021-06-27 Outpatient R KARAN [facility] [id number] Univers 11:00:00 11:00:00 ROSHUNDA ity o f [facility] 2021-06-26 2021-06-26 Contemporary Or Modern Dancer 2, Adc Lab [place] 1.2.840.114 [id number] Univers 16:00:00 16:15:00 Visit Anisha Jorgensen Ronald CAMACHO 350.1.13.10 ity of [facility] 4.2.7.2.[place] [phone] Nd dical NAL 353 [facility] 2021-06-26 2021-06-26 Outpatient [facility] [id number] Univers 16:00:00 16:00:00 ity of [facility] 2021-06-26 2021-06-26 Outpatient R [facility]HA [facility] [id number] Univers 16:00:00 16:00:00 ity of [facility] 2021-06-23 2021-06-23 Contemporary Or Modern Dancer 2, Adc Lab [place] 1.2.840.114 [id number] Univers 16:00:00 16:15:00 Visit Anisha Jorgensen ANIKATON 350.1.13.10 ity of [place] 4.2.7.2.686 [place] [id number] [address] 2021-06-23 2021-06-23 Outpatient [facility] [id number] Univers 16:00:00 16:00:00 ity of [facility] 2021-06-23 2021-06-23 Outpatient R ANISHA [facility] [id number] Univers 16:00:00 16:00:00 ity of [facility] 2021-06-23 2021-06-23 Outpatient [facility] [id number] Univers 11:00:00 11:00:00 ity of [facility] 2021-06-21 2021-06-21 Contemporary Or Modern Dancer 2, [facility] Lab [place] 1.2.840.114 [id number] Univers 16:00:00 16:15:00 Visit Anisha Jorgensen JANICE 350.1.13.10 ity of [place] 4.2.7.2.686 [place] [id number] [address] 2021-06-21 2021-06-21 Outpatient R ANISHA [facility] [id number] Univers 16:00:00 16:00:00 ity of [facility] 2021-06-21 2021-06-21 [facility] [id number] Univers 10:00:00 10:59:11 Cam [place] 350.1.13.10 ity of Visit [place] 4.2.7.2.686 [place] [phone] Nd dicdorcas [facility] 134 [facility] 2021-06-21 2021-06-21 Outpatient R ANISHA [facility]ENS[facility] [id number] Univers 10:00:00 10:59:11 ity of [facility] 2021-06-21 2021-06-21 Orders Doctor DAVIES 1.2.840.114 [id number] Univers 00:00:00 00:00:00 Only Unassigned, GREGORY 350.1.13.10 ity of [place] [facility] 4.2.7.2.686 Billy as [phone] [address] 2021-06-19 2021-06-19 Telephone Jameel Anisha [place] 1.2.840.114 [id number] Univers 00:00:00 00:00:00 [facility] 350.1.13.10 i ty of [place] 4[place]2.7.2.686 [place] [id number] Nd dical [address] 2021-05-31 2021-05-31 [facility] [id number] [id number] Univers 00:00:00 00:00:00 Tyreenda R OPENSTACK DEVELOPER [id number] ity of [facility] [id number] Billy as MATERNAL [phone] Med ical & CHILD [address] [place] [address] 2021-05-31 2021-05-31 Telephone [facility] [id number] Univers 00:00:00 00:00:00 Lawrencea R OPENSTACK DEVELOPER [id number] ity of [facility] [id number] Billy as MATERNAL [phone] Med ical & CHILD [address] [place] [address] 2021-05-30 2021-05-30 Outpatient R KARAN [facility] [id number] Univers 10:00:00 10:59:06 ROSHUNDA ity o f [facility] 2021-05-30 2021-05-30 [facility] [id number] Univers 10:00:00 10:59:06 Tyreenda R OPENSTACK DEVELOPER [id number] ity of Visit [facility] [id number] Billy as MATERNAL [phone] Med ical & CHILD [address] [place] [address] 2021-05-30 2021-05-30 Orders Doctor KEKE [id number] Univers 00:00:00 00:00:00 Only Unassigned, GREGORY [id number] ity of [facility] [id number] Billy as [phone] [address] 2020-10-13 2020-10-13 [facility] [id number] Univers 14:00:00 14:00:00 ALMA ROSA lanier [facility] 2020-05-10 2020-05-10 Patient [facility] [id number] Univers 00:00:00 00:00:00 Outreach Anthony BURK [id number] i ty [facility] [id number] [phone] Nd dical [address] [place] 2020-04-15 2020-04-15 [facility] 1.2.840.114 [id number] Univers 14:44:03 16:06:32 Visit Alma Rosa Camacho [id number] ity of [id number] [phone] Nd dical nal 134 [facility] 2020-04-15 2020-04-15 Outpatient R AD, [facility] [id number] Univers 15:00:00 15:00:00 ALMA ROSA lanier [facility] 2020-04-15 2020-04-15 Orders Doctor KEKE 1.2.840.114 [id number] Univers 00:00:00 00:00:00 Only Unassigned, GREGORY [id number] ity of [facility] [id number] Billy as [phone] [address] 2020-04-01 2020-04-01 [facility] 1.2.840.114 [id number] Univers 00:00:00 00:00:00 Management Alma Rosa Camacho [id number] ity of [id number] [phone] Nd dical nal 134 [facility] 2020-03-31 2020-03-31 Office [facility] 1.2.840.114 [id number] Univers 15:10:04 16:47:36 Visit Alma Rosa [place] [id number] ity [facility] [id number] Curt Manzano [phone] Nd dical nal [address] [place] [address] 2020-03-31 2020-03-31 Outpatient R DANITA, [facility] [id number] Univers 15:30:00 15:30:00 ALMA ROSA itguille [facility] 2020-03-31 2020-03-31 Orders Doctor KEKE 1.2.840.114 [id number] Univers 00:00:00 00:00:00 Only Unassigned, GREGORY [id number] ity of [facility] [id number] Billy as [phone] [address] 2019-05-25 2019-05-25 [facility] [id number] Univers 15:00:00 15:00:00 OSMANY [facility] Results Test Description Test Time Test Comments Results Result Comments Source POCT URINALYSIS W SPECIFIC GRAVITY 2022-11-27 18:30:00 Test Item Value Reference Range Interpretation Comme nts POCT U SP GRAV (test code = 3255) . 1.005-1.025 POCT PH U (test code = 3254) 7 mg/dl 5-8 POCT U LEUK EST (test code = 3263) Trace Negative - Negative POCT U NIT (test code = 3262) Neg Negative - Negative POCT U PROT (test code = 3259) 1+ Negative - Negative POCT U GLU (test code = 3256) Neg Negative - Negative POCT U KETONE (test code = 3258) 2+ Negative - Negative POCT U UROBILI (test code = 3260) . 0.2-1 POCT U BILI (test code = 3261) . Negative - Negative POCT U BLD (test code = 3257) Trace Negative - Negative POCT U COLOR (test code = 3266) POCT U APPEAR (test code = 3267[facility] [id number] 18:30:00 Test Item Value Reference Range Interpretation Comments POCT PH U (test code = 3254) 9 mg/dl 5-8 A POCT U LEUK EST (test code = 1+ Negative - Negative 3263) POCT U NIT (test code = 3262) neg Negative - Negative POCT U PROT (test code = 3259) trace Negative - Negative POCT U GLU (test code = 3256) neg Negative - Negative POCT U KETONE (test code = 3258) neg Negative - Negative POCT U BLD (test code = 3257) neg Negative - Negative Lab Interpretation (test code = Abnormal 06576-1) General acute hospital URINALYSIS W/O SPECIFIC [id number] 18:30:00 Test Item Value Reference Range Interpretation Comments POCT PH U (test code = 3254) 9 mg/dl 5-8 A POCT U LEUK EST (test code = 1+ Negative - Negative 3263) POCT U NIT (test code = 3262) neg Negative - Negative POCT U PROT (test code = 3259) trace Negative - Negative POCT U GLU (test code = 3256) neg Negative - Negative POCT U KETONE (test code = 3258) neg Negative - Negative POCT U BLD (test code = 3257) neg Negative - Negative Lab Interpretation (test code = Abnormal 50778-3) General acute hospital URINALYSIS W/O SPECIFIC [id number] 18:30:00 Test Item Value Reference Range Interpretation Comments POCT PH U (test code = 3254) 9 mg/dl 5-8 A POCT U LEUK EST (test code = 1+ Negative - Negative 3263) POCT U NIT (test code = 3262) neg Negative - Negative POCT U PROT (test code = 3259) trace Negative - Negative POCT U GLU (test code = 3256) neg Negative - Negative POCT U KETONE (test code = 3258) neg Negative - Negative POCT U BLD (test code = 3257) neg Negative - Negative Lab Interpretation (test code = Abnormal 51746-3) General acute hospital [id number] 18:27:00 Test Item Value Reference Range Interpretation Comments POCT PREG (test code = 1605) Positive On board controls acceptable with C Yes Line (test code = 3574) POCT PREG LOT # (test code = 3575) POCT PREG TEST DATE (test code = 3576) [id number] 18:27:00 Test Item Value Reference Range Interpretation Comments POCT PREG (test code = 1605) Positive On board controls acceptable with C Yes Line (test code = 3574) POCT PREG LOT # (test code = 3575) POCT PREG TEST DATE (test code = 3576) [facility] [id number] 18:27:00 Test Item Value Reference Range Interpretation Comments POCT PREG (test code = 1605) Positive On board controls acceptable with C Yes Line (test code = 3574) POCT PREG LOT # (test code = 3575) POCT PREG TEST DATE (test code = 3576) [facility]
[2022-12-02] MEDS ORDERED: DIPHENHYDRAMINE 12.5MG/5ML LIQ ONE (18:23)
[2022-12-02] MEDS ORDERED: METOCLOPRAMIDE 10 MG/2mL INJ ONE (18:23)
[2022-12-02] MEDS ORDERED: NA CHLORIDE 0.9% 1,000 ML ONE (18:23)
[2022-12-02] MEDS ORDERED: DIPHENHYDRAMINE 50 MG/ML VIAL ONE (18:24)
[2022-12-02 18:38] LABS: Absolute Lymphocytes (CBC) 1.9 K/uL (0.7-4.9); Hematocrit 41.2 % (36.0-45.0); Lymphocytes % 13.2 % (15.3-44.8); MCV 85.4 fL (80-100); MPV 8.2 fL (7.6-11.3); Platelets 346 thou/uL (152-406); RBC Red Blood Cell Count 4.83 M/uL (3.86-4.86)
[2022-12-02 18:39] LABS: Specific Gravity 1.036 (1.005-1.030)
[2022-12-02 18:41] LABS: Specific Gravity > 1.030 (1.005-1.030); Urine Bacteria 20-50 /HPF (<20); Urine Bilirubin 1+ (Negative); Urine Blood Negative (Negative); Urine Clarity Extremely Turbid (Clear); Urine Color Yellow (Yellow); Urine Glucose NEGATIVE (Negative); Urine Mucus 1+ /HPF (None Seen); Urine Protein 2+ (Negative); Urine RBC <5 /HPF (None Seen); Urine Urobilinogen 3+ (Normal)
[2022-12-02 18:55] LABS: Albumin 3.8 g/dL (3.4-5.0); Bilirubin Total 1.7 mg/dL (0.2-1.0); Potassium 3.8 mEq/L (3.5-5.1); Protein, Total 8.2 g/dL (6.4-8.2)
--- NOTE | 2022-12-02 19:16 | EDPHYS ---
Physician Documentation [facility] [place], [place] Name: Judi Frank Age: 22 yrs Sex: Female : 2000 Arrival Date: 12/02/2022 Time: 17:28 Bed 20 Private MD: ED Physician Ernesto Hollis HPI: 12/02 17:46 This 22 yrs old Female presents to ER via Ambulatory with complaints of ec2 Vomiting. 17:46 Patient arrives today due to concern for nausea and vomiting and decreased p.o. intake. ec2 Patient is approximately 8 weeks , states that she has been having issues with hyperemesis. He says she was recently seen in the emergency department, was started on Diclegis as well as Zofran with minimal alleviation in her symptoms. Patient reports that she is able to keep fluids down however is not had a strong appetite due to the nausea and vomiting. Patient reports no abdominal pain. Patient reports no vaginal bleeding. States that she was told that she had a UTI however has not started antibiotics.. 17:49 Of note patient does state that she has had outpatient imaging including ultrasound ec2 that showed positive IUP with heart tones appreciated.. 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 States she is 8 weeks and 2 days . me1 Historical: - Allergies: 17:36 No Known Allergies; ko1 - Home Meds: 17:36 promethazine 25 mg Oral tablet 1 tab [Active]; ko1 - PMHx: 17:36 Anemia; ko1 - Immunization history:: Adult Immunizations up to date. - Social history:: Smoking status: Patient denies any tobacco usage or history of. ROS: 17:46 Constitutional: n/v ec2 Exam: 17:46 Constitutional: PHYSICAL EXAMINATION: GENERAL: No acute distress HEENT: Extraocular ec2 motions intact CV: Regular rate LUNGS: No respiratory distress ABDOMEN: Nondistended, soft, nontender, no guarding, not rigid SKIN: No rash NEUROLOGIC: Moves all extremities equally Vital Signs: 17:35 BP 137 / 73; Pulse 81; Resp 16; Temp 98.8; Pulse Ox 97% ; ko1 17:43 BP 132 / 68; Pulse 71; Resp 18; Pulse Ox 99% on R/A; me1 17:43 BP 126 / 68; Pulse 77; Resp 16; Pulse Ox 100% on R/A; me1 MDM: 17:33 Patient medically screened. ec2 17:46 Data reviewed: vital signs. ED course: Patient arrives today due to concern for nausea ec2 and vomiting and decreased p.o. intake in setting of known 8 weeks of . Examination nonfocal. Nontoxic and visual with reassuring vital signs. Will obtain lab work to evaluate dehydration, give the patient crystalloid, Reglan, Benadryl for the patient complaint of nausea and vomiting. Currently considered in process such as urinary tract infection, hyperemesis gravidarum, less risk for intra-abdominal infection or complication such as miscarriage. Additionally patient has had outpatient imaging, given that patient has no vaginal bleeding at this time I do not feel she will benefit from ultrasonography.. 18:43 ED course: Urine positive which is consistent with the patient's known . ec2 Urinalysis with bacteriuria present, in setting of this is appropriate to treat antibiotics. Patient already has a prescription for Macrobid I will defer additional antibiotic treatment at this time. I instructed her she needs to lemon picker the prescription and take her antibiotics. CBC does show a slight leukocytosis of 14.4. . 18:53 ED course: Patient has FOUZIA with pending metabolic profile and reassessment of the ec2 patient.. 10 17:33 Order name: Test, Urine; Complete Time: 18:42 ec2 12/02 17:33 Order name: Urinalysis w/ reflexes; Complete Time: 18:42 ec2 12/02 17:45 Order name: CBC with Diff; Complete Time: 18:42 ec2 12/02 17:45 Order name: CMP; Complete Time: 19:15 ec2 12/02 17:45 Order name: IV Saline Lock; Complete Time: 18:29 ec2 12/02 17:45 Order name: Labs collected and sent; Complete Time: 18:29 ec2 12/02 19:15 Order name: PO challenge: juice; Complete Time: 19:44 snw Administered Medications: 18:29 Drug: NS 0.9% IV 1000 ml IV at 1 bolus Per protocol; 1000 mL bolus Route: IV; Rate: 1 me1 bolus; Site: right antecubital; 19:39 Follow up: IV Status: Completed infusion me1 18:29 Drug: metoCLOPramide IVP 10 mg IVP once; over 1 to 2 minutes Route: IVP; Site: right me1 antecubital; 19:40 Follow up: Response: No adverse reaction; Nausea is decreased me1 18:29 Drug: diphenhydrAMINE IVP 25 mg IVP once Route: IVP; Site: right antecubital; me1 19:39 Follow up: Response: No adverse reaction; Nausea is decreased me1 Disposition Summary: 12/02/22 19:15 Discharge Ordered Notes: Please fill antibiotics prescribed and begin taking. Location: Home snw Condition: Stable snw Diagnosis - Mild hyperemesis gravidarum snw - Asymptomatic Bactiuria snw Discharge Instructions: - Discharge Summary Sheet snw - Hyperemesis Gravidarum snw - Rehydration, Adult snw - Asymptomatic Bacteriuria snw Forms: - Medication Reconciliation Form snw - Thank You Letter snw - Antibiotic Education snw - Prescription Opioid Use snw - Patient Portal Instructions snw - Leadership Thank You Letter snw Signatures: Dispatcher [employer] EDSandra New FNP-C BIOSTATISTICS DIRECTOR-Csnw Tea Douglass, RN RN ko1 Sarahi Bradshaw RN RN me1 Ernesto Hollis MD MD ec2
--- NOTE | 2022-12-02 19:16 | ER ---
Nurse's Notes [facility] Name: Judi Frank Age: 22 yrs Sex: Female : 2000 Arrival Date: 12/02/2022 Time: 17:28 Bed 20 Private MD: Diagnosis: Mild hyperemesis gravidarum;Asymptomatic Bactiuria Presentation: 12/02 17:35 Chief complaint: Patient states: N/V for 1-2 weeks, was seen here 2 days ago for the ko1 same thing. Its not getting better, 8wks and 2 days . Coronavirus screen: At this time, the client does not indicate any symptoms associated with coronavirus-19. Ebola Screen: No symptoms or risks identified at this time. Initial Sepsis Screen: Does the patient meet any 2 criteria? No. Patient's initial sepsis screen is negative. Does the patient have a suspected source of infection? No. Patient's initial sepsis screen is negative. Risk Assessment: Do you want to hurt yourself or someone else? Patient reports no desire to harm self or others. Onset of symptoms was December 02, 2022. 17:35 Method Of Arrival: Ambulatory ko1 17:35 Acuity: NEIDA 4 ko1 Triage Assessment: 17:36 General: Appears in no apparent distress. Behavior is calm, cooperative, appropriate ko1 for age. Pain: Denies pain. GI: Reports vomiting. 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 States she is 8 weeks and 2 days . me1 Historical: - Allergies: 17:36 No Known Allergies; ko1 - Home Meds: 17:36 promethazine 25 mg Oral tablet 1 tab [Active]; ko1 - PMHx: 17:36 Anemia; ko1 - Immunization history:: Adult Immunizations up to date. - Social history:: Smoking status: Patient denies any tobacco usage or history of. Screenin:45 [facility] ED Fall Risk Assessment (Adult) History of falling in the last 3 months, me1 including since admission No falls in past 3 months (0 pts) Confusion or Disorientation No (0 pts) Intoxicated or Sedated No (0 pts) Impaired Gait No (0 pts) Mobility Assist Device Used No (0 pt) Altered Elimination No (0 pt) Score/Fall Risk Level 0 - 2 = Low Risk. Abuse screen: Denies threats or abuse. Nutritional screening: No deficits noted. Tuberculosis screening: No symptoms or risk factors identified. Assessment: 19:45 General: Appears comfortable, well groomed, well developed, well nourished, Behavior is me1 calm, cooperative, appropriate for age. Pain: Denies pain. Neuro: Level of Consciousness is awake, alert, obeys commands, Oriented to person, place, time, situation, Appropriate for age. Cardiovascular: Capillary refill < 3 seconds Patient's skin is warm and dry. Respiratory: Airway is patent Respiratory effort is even, unlabored, Respiratory pattern is regular, symmetrical. GI: Abdomen is round Reports nausea, vomiting, for 1-2 weeks. 8 weeks and 2 days . Was seen here 2 days ago for the same thing but it isn't getting any better. Vital Signs: 17:35 BP 137 / 73; Pulse 81; Resp 16; Temp 98.8; Pulse Ox 97% ; ko1 17:43 BP 132 / 68; Pulse 71; Resp 18; Pulse Ox 99% on R/A; me1 17:43 BP 126 / 68; Pulse 77; Resp 16; Pulse Ox 100% on R/A; me1 ED Course: 17:32 Patient arrived in ED. mg5 17:33 Ernesto Hollis MD is Attending Physician. ec2 17:36 Triage completed. ko1 17:36 Arm band placed on right wrist. Patient notified of wait time. ko1 17:49 Sarahi Bradshaw, RN is Primary Nurse. me1 18:28 Inserted saline lock: 22 gauge in right antecubital area, using aseptic technique. me1 18:29 CBC with Diff Sent. me1 18:29 CMP Sent. me1 18:29 Test, Urine Sent. me1 18:29 Urinalysis w/ reflexes Sent. me1 19:45 Patient has correct armband on for positive identification. Bed in low position. Call me light in reach. Side rails up X 1. Provided Education on: POC. Verbalized understanding. . 19:45 No provider procedures requiring assistance completed. me1 19:48 IV discontinued, intact, bleeding controlled, No redness/swelling at site. Pressure me1 dressing applied. Administered Medications: 18:29 Drug: NS 0.9% IV 1000 ml IV at 1 bolus Per protocol; 1000 mL bolus Route: IV; Rate: 1 me1 bolus; Site: right antecubital; 19:39 Follow up: IV Status: Completed infusion me1 18:29 Drug: metoCLOPramide IVP 10 mg IVP once; over 1 to 2 minutes Route: IVP; Site: right me1 antecubital; 19:40 Follow up: Response: No adverse reaction; Nausea is decreased me1 18:29 Drug: diphenhydrAMINE IVP 25 mg IVP once Route: IVP; Site: right antecubital; me1 19:39 Follow up: Response: No adverse reaction; Nausea is decreased me1 Medication: 19:45 VIS not applicable for this client. me1 Outcome: 19:15 Discharge ordered by . snw 19:48 Discharged to home ambulatory, with significant other, me1 19:48 Condition: stable 19:48 Discharge instructions given to patient, significant other, Instructed on discharge instructions, follow up and referral plans. Demonstrated understanding of instructions, follow-up care, 19:50 Patient left the ED. me1 Signatures: Sandra Rivas, PROTOCOL MANAGER-C PROTOCOL MANAGER-Csnw Tea Douglass, RN RN ko1 Sarahi Bradshaw RN RN me1 Dania Zavala mg5 Ernesto Hollis MD MD ec2 Corrections: (The following items were deleted from the chart) 17:39 17:35 Chief complaint: Patient states: N/V for 1-2 weeks, was seen here 2 days ago for ko1 the same thing. Its not getting better ko1
[2022-12-02 20:57] VITALS: TEMP 98.8
[2022-12-02 20:58] VITALS: BP 126/68; O2SAT 100
== END 2022-12-02 19:50 | disposition home or self-care (01) ==
LOC: ER 17:28
DX: O21.0 Mild hyperemesis gravidarum (principal); R82.71 Bacteriuria; Z3A.08 8 weeks gestation of pregnancy
CPT/HCPCS: 96361; 85025; 81001; 36415; 81025; 80053; 96375; 96374; 99284; J2765; J1200; J7030; Q0163

== ENCOUNTER 2022-12-18 10:40 | Emergency (ER) | payer OTHER ==
--- OUTSIDE RECORDS SUMMARY | 2022-12-18 10:54 | XMS REPORT | Continuity of Care Document ---
:[address] [facility] t Address [address] [place] [address] Care Team Providers Name Role Phone ALEYDA RUSSO Primary Care Physician Unavailable GABBY ALMAZAN Attending Clinician Unavailable Ghazala Fuchs Attending Clinician [phone] GHAZALA PAN Attending Clinician Unavailable MARLINE SHAH Attending Clinician Unavailable Marline Shah DO Attending Clinician AYAH JANSEN Attending Clinician Unavailable Ayah Jansen PA-C Attending Clinician Unknown, Attending Attending Clinician Unavailable Gabby Almazan CNM Attending Clinician Doctor Unassigned, [place] Attending Clinician Unavailable Santiago Jenkins RN, Devorah Paez Attending Clinician Unavailable ELLIOTT VENTURA Attending Clinician Unavailable Ultrasound, Ang-Mfm Attending Clinician Unavailable Elliott Ventura MD Attending Clinician [phone] ANISHA JORGENSEN Attending Clinician Unavailable Anisha Jorgensen MD Attending Clinician ALEYDA RUSSO Attending Clinician Unavailable 2, [facility] Attending Clinician Unavailable Aleyda Fragoso Attending Clinician ALMA ROSA SANDOVAL Attending Clinician Unavailable Anthony Brown DO Attending Clinician Alma Rosa Sandoval MD Attending Clinician ANISHA JORGENSEN Admitting Clinician Unavailable Payers Payer Name Policy Type Policy Number Effective Date Expiration Date Jaci MARTINEZ [id number] 2022 00:00:00 Problems Condition Condition Condition Status Onset Resolution Last Treating Co mments Source Name Details Category Date Date Treatment Clinician Date Hyperemesi Hyperemesi Disease Active 2022-02 U nivers s [place] 0-17 [place] , [place] dical antepartum antepartum Br anch Atypical Atypical Disease Active 2022-02 Overview: Un [...] of high-risk high-[place] 00:[place] 00 [facility] Branch Missed Missed Disease Active Univers 5-12 ity of 00:00: Medical Branch Maternal Maternal Disease Active Overview: Un bill varicella, varicella, 4-13 Formattin ity of non-immune non-immune 00:00: g of this [place] 00 note Medical might be Branch different from the original. Address in PP. Rubella Rubella Disease Active Overview: Univ ers non-immune non-immune 4-13 Formattin ity of status, status, 00:00: g of this [place] antepartum antepartum 00 note Me dical might be Branch different from the original. Address in PP. Nausea and Nausea and Disease Active U nivers vomiting vomiting 4-12 ity of during during 00:00: [place] 00 [facility] Branch Morbid Morbid Disease Active Univers obesity obesity 2-11 ity of with body with body 00:00: [facility] s mass index mass index 00 Me dical of of Branch 40.0-49.9 40.0-49.9 Obesity in Obesity in Disease Active U nivers 2-11 ity of 00:00: [address] Allergies, Adverse Reactions, Alerts Allergy Allergy Status Severity Reaction(s) Onset Inactive Treating Comm ents Source Name Type Date Date Clinician NO KNOWN Drug Active Univers ALLERGIE Class ity of S [facility] Social History Social Habit Start Date Stop Date Quantity Comments Source ASSERTION 2022-10-19 [facility] 00:00:00 [facility] intake 2022-12-07 2022-12-07 Ex-drinker [facility] 00:00:00 00:00:00 (finding) [facility] Tobacco use and 2022-11-12 2022-11-12 User of Universit y of exposure 00:00:00 00:00:00 smokeless [facility] Tobacco Comment 2022-11-12 2022-11-12 Vapes daily Universi ty of 00:00:00 00:00:00 since age 15 [facility] [place] [facility] Exposure to 2021-07-08 2021-07-18 Not sure [facility] SARS-CoV-2 (event) 00:00:00 08:03:00 [facility] History of Social 2021-05-30 2021-05-30 Univers ity of function 00:00:00 00:00:00 [facility] Sex Assigned At [birth year] Universit y of 00:00:00 00:00:00 [facility] Smoking Status Start Date Stop Date Source Never smoked tobacco [facility] Medications Ordered Filled Start Stop Current Ordering Indication Dosage Frequency Signature Comments Components Source Medication Medication Date Date Medication? Clinician (SIG) Name Name NaCl 0.9% 2022-02 1000mL at 999 Uni vers (NS) bolus 0-21 10-21 mL/hr, ity of infusion 00:00: 00:22 1,000 mL, [place] as 1,000 mL 00 :00 IV Medical Infusion, Branch ONCE, 1 dose, On 12/07/22 at 1900, KRISTIE ondansetron 2022-02- No 4mg 4 mg, Slow Univers (ZOFRAN 0-20 10-20 IV Push, ity of (PF)) 23:15: 23:18 ONCE, 1 [place] injection 4 00 :00 dose, On Medi cheryl mg Fri Branch 12/07/22 at 1815, KRISTIE metoclopram 2022-02 Yes [id number] 10mg Take 1 Univers dodie HCl 10 0-20 tablet by ity of mg tablet 00:00: mouth [place] 00 every 6 Medical (six) Branch hours as needed for Nausea and Vomiting (N/V). metoclopram 2022-02 Yes [id number] 10mg Take 1 Univers dodie HCl 10 0-20 tablet by ity of mg tablet 00:00: mouth [place] 00 every 6 Medical (six) Branch hours as needed for Nausea and Vomiting (N/V). metoclopram 2022-02 Yes [id number] 10mg Take 1 Univers dodie HCl 10 0-20 tablet by ity of mg tablet 00:00: mouth [place] 00 every 6 Medical (six) Branch hours as needed for Nausea and Vomiting (N/V). metoclopram 2022-02 Yes [id number] 10mg Take 1 Univers dodie HCl 10 0-20 tablet by ity of mg tablet 00:00: mouth [place] 00 every 6 Medical (six) Branch hours as needed for Nausea and Vomiting (N/V). proMETHazin 2022-02 Yes [id number] 25mg Insert 1 Univers e 25 mg 0-17 Suppositor ity of suppository 00:00: [place] rectum Medical every 4 Branch (four) hours as needed for Nausea and Vomiting (N/V). proMETHazin 2022-02- No [id number] 25mg Insert 1 Univers e 25 mg 0-17 10-20 Suppositor ity o f suppository 00:00: 00:00 y into [place] as 00 :00 rectum Medical every 4 Branch (four) hours as needed for Nausea and Vomiting (N/V). proMETHazin 2022-02- No [id number] 25mg Insert 1 Univers e 25 mg 0-17 10-20 Suppositor ity o f suppository 00:00: 00:00 y into [place] as 00 :00 rectum Medical every 4 Branch (four) hours as needed for Nausea and Vomiting (N/V). ondansetron 2022-02 Yes DISSOLVE 2 Univers 4 mg 0-13 TABLETS BY ity of disintegrat 00:00: MOUTH [place] ing tablet 00 EVERY 6 Medica l HOURS Branch NEEDED FOR NAUSEA ondansetron 2022-02- No DISSOLVE 2 Univers 4 mg 0-13 10-20 TABLETS BY ity of disintegrat 00:00: 00:00 MOUTH [place] tablet 00 :00 EVERY 6 Medica l HOURS Branch NEEDED FOR NAUSEA ondansetron 2022-02- No DISSOLVE 2 Univers 4 mg 0-13 10-20 TABLETS BY ity of disintegrat 00:00: 00:00 M[place]TH [place] tablet 00 :00 EVERY 6 Medica l HOURS Branch NEEDED FOR NAUSEA doxylamine- 2022-02 Yes Day 1: Univers pyridoxine, [...] am and 2 tablet at bed doxylamine- 2022-02- No [id number] Day 1: Univers pyridoxine, 0-12 10-17 Take 2 ity o f vit B6, 00:00: 00:00 tablet [place] (DICLEGIS) 00 :00 before Medical 10-10 mg bed. Day Branch per tablet 2: If still having nausea and vomiting 2 tablet bed. Day 3 take 1 tablet in am and 2 tablet at bed proMETHazin 2022-02 Yes [id number] 25mg Take 1 Univers e 25 mg 0-10 tablet by ity of tablet 00:00: mouth [place] 00 every 4 Medical (four) Branch hours as needed for Nausea and Vomiting (N/V). proMETHazin 2022-02 Yes [id number] 25mg Take 1 Univers e 25 mg 0-10 tablet by ity of tablet 00:00: mouth [place] 00 every 4 Medical (four) Branch hours as needed for Nausea and Vomiting (N/V). proMETHazin 2022-02 Yes [id number] 25mg Take 1 Univers e 25 mg 0-10 tablet by ity of tablet 00:00: mouth [place] 00 every 4 Medical (four) Branch hours as needed for Nausea and Vomiting (N/V). proMETHazin 2022-02 Yes [id number] 25mg Take 1 Univers e 25 mg 0-10 tablet by ity of tablet 00:00: mouth [place] 00 every 4 Medical (four) Branch hours as needed for Nausea and Vomiting (N/V). proMETHazin 2022-02- No [id number] 25mg Take 1 Univers e 25 mg 0-10 10-17 tablet by ity of tablet 00:00: 00:00 mouth [place] 00 :00 every 4 Medical (four) Branch hours as needed for Nausea and Vomiting (N/V). Yes [id number] 1{tbl} Take 1 U nivers amm39-imwn- 9-25 tablet by ity of folic acid 00:00: mouth in [place] 29 mg iron- 00 the Medical 1 mg per morning. Branch tablet Yes [id number] 1{tbl} Take 1 U nivers plr03-ihik- 9-25 tablet by ity of folic acid 00:00: mouth in [place] 29 mg iron- 00 the Medical 1 mg per morning. Branch tablet Yes [id number] 1{tbl} Take 1 U nivers cah03-muwm- 9-25 tablet by ity of folic acid 00:00: mouth in [place] 29 mg iron- 00 the Medical 1 mg per morning. Branch tablet Yes [id number] 1{tbl} Take 1 U nivers ebl90-kfli- 9-25 tablet by ity of folic acid 00:00: mouth in [place] 29 mg iron- 00 the Medical 1 mg per morning. Branch tablet Yes [id number] 1{tbl} Take 1 U nivers etm63-kehv- 9-25 tablet by ity of folic acid 00:00: mouth in [place] 29 mg iron- 00 the Medical 1 mg per morning. Branch tablet Yes [id number] 1{tbl} Take 1 U nivers vxp40-dmvx- 9-25 tablet by ity of folic acid 00:00: mouth in [place] 29 mg iron- 00 the Medical 1 mg per morning. Branch tablet Yes [id number] 1{tbl} Take 1 U nivers dhz57-pesp- 9-25 tablet by ity of folic acid 00:00: mouth in [place] 29 mg iron- 00 the Medical 1 mg per morning. Branch tablet Yes [id number] 1{tbl} Take 1 U nivers aqm31-mpod- 9-25 tablet by ity of folic acid 00:00: mouth in [place] 29 mg iron- 00 the Medical 1 mg per morning. Branch tablet Yes [id number] 1{tbl} Take 1 U nivers niq63-rvpe- 9-25 tablet by ity of folic acid 00:00: mouth in [place] 29 mg iron- 00 the Medical 1 mg per morning. Branch tablet Yes [id number] 1{tbl} Take 1 U nivers eow81-lbfk- 9-25 tablet by ity of folic acid 00:00: mouth in [place] 29 mg iron- 00 the Medical 1 mg per morning. Branch tablet Yes [id number] 1{tbl} Take 1 U nivers vcp91-wvmq- 9-25 tablet by ity of folic acid 00:00: mouth in [place] 29 mg iron- 00 the Medical 1 mg per morning. Branch tablet Yes [id number] 1{tbl} Take 1 U nivers rdi59-ovwd- 9-25 tablet by ity of folic acid 00:00: mouth in [place] 29 mg iron- 00 the Medical 1 mg per morning. Branch tablet Yes [id number] 1{tbl} Take 1 U nivers jxd39-bodq- 9-25 tablet by ity of folic acid 00:00: mouth in [place] 29 mg iron- 00 the Medical 1 mg per morning. Branch tablet Yes [id number] 1{tbl} Take 1 U nivers xak16-gwwd- 9-25 tablet by ity of folic acid 00:00: mouth in [place] 29 mg iron- 00 the Medical 1 mg per morning. Branch tablet Yes [id number] 1{tbl} Take 1 U nivers lmp16-xhgc- 9-25 tablet by ity of folic acid 00:00: mouth in [place] 29 mg iron- 00 the Medical 1 mg per morning. Branch tablet Yes [id number] 1{tbl} Take 1 U nivers xqf53-wjtd- 9-25 tablet by ity of folic acid 00:00: mouth in [place] 29 mg iron- 00 the Medical 1 mg per morning. Branch tablet Yes [id number] 1{tbl} Take 1 U nivers gbe33-oksk- 9-25 tablet by ity of folic acid 00:00: mouth in [place] 29 mg iron- 00 the Medical 1 mg per morning. Branch tablet No known No Univers medications 5- ity of 08:38: [place] [address] Medical [place] No known No Univers medications 5-31 ity of 08:38: [address] pyridoxine, 2021- No [id number] 25mg Take 1 Univers VITAMIN 06-21 tablet by ity of B-6, 00:00: 00:00 mouth [place] (VITAMIN 00 :00 every 6 Medical B-6) 25 mg (six) Branch tablet hours as needed for Nausea and Vomiting (N/V). doxylamine 2021- No [id number] 25mg Take 1 Univers (UNISOM, 06-21 tablet by ity o f DOXYLAMINE, 00:00: 00:00 [place] 25 mg 00 :00 bedtime as Medica l tablet needed for Branch Nausea and Vomiting (N/V). metoclopram 2021- No [id number] 10mg Take 1 Univers dodie HCl 10 06-21 tablet by ity of mg tablet 00:00: 00:00 mouth [place] 00 :00 every 6 Medical (six) Branch hours as needed for Nausea and Vomiting (N/V). pyridoxine, 2021- No [id number] 25mg Take 1 Univers VITAMIN 06-21- tablet by ity of B-6, 00:00: 00:00 mouth [place] (VITAMIN 00 :00 every 6 Medical B-6) 25 mg (six) Branch tablet hours as needed for Nausea and Vomiting (N/V). doxylamine No [id number] 25mg Take 1 Univers (UNISOM, 06-21 tablet by ity o f DOXYLAMINE, 00:00: 00:00 [place] 25 mg 00 :00 bedtime as Medica l tablet needed for Branch Nausea and Vomiting (N/V). metoclopram No [id number] 10mg Take 1 Univers dodie HCl 10 06-21 tablet by ity of mg tablet 00:00: 00:00 mouth [place] 00 :00 every 6 Medical (six) Branch hours as needed for Nausea and Vomiting (N/V). Nitrofurant 2021- No [id number] TAKE 1 Univers oin&Nit. 06-19-31 CAPSULE BY ity of Macrocryst 00:00: 00:00 MOUTH [place] 100 mg 00 :00 EVERY 12 Medical capsule HOURS FOR Branch 10 DAYS Nitrofurant 2021- No [id number] TAKE 1 Univers oin&Nit. -03 25-31 CAPSULE BY ity of Macrocryst 00:00: 00:00 MOUTH [place] 100 mg 00 :00 EVERY 12 Medical capsule HOURS FOR Branch 10 DAYS azithromyci 2021- No [id number] 500mg Take 1 Univers n 500 mg 05-31-31 tablet by ity o f tablet 00:00: 00:00 mouth [place] 00 :00 daily. Medical Branch azithromyci 2021- No [id number] 500mg Take 1 Univers n 500 mg -30 06-31 tablet by ity o f tablet 00:00: 00:00 mouth [place] 00 :00 daily. Medical Branch 2021- No [id number] 1{packe Take 1 Univers vit 4-12 05-31 t} Packet by ity of 33-iron-fol 00:00: 00:00 [place] ic-dha 00 :00 daily. Medical (SELECT-OB Branch + DHA) 29 mg iron-1 mg -250 mg combo pack 2021- No [id number] 1{packe Take 1 Univers vit 4-12 05-31 t} Packet by ity of 33-iron-fol 00:00: 00:00 mouth [place] ic-dha 00 :00 daily. Medical (SELECT-OB Branch + DHA) 29 mg iron-1 mg -250 mg combo pack Immunizations Ordered Filled Date Status Comments Source Immunization Name Immunization Name SARS-COV-2 COVID-19 2020-12-12 Completed Unive rsity of PFIZER VACCINE 00:00:00 [place] [facility] SARS-COV-2 COVID-19 2020-12-12 Completed Unive rsity of PFIZER VACCINE 00:00:00 [place] [facility] SARS-COV-2 COVID-19 2020-12-12 Completed Unive rsity of PFIZER VACCINE 00:00:00 [place] [facility] SARS-COV-2 COVID-19 2020-12-12 Completed Unive rsity of PFIZER VACCINE 00:00:00 [place] [facility] SARS-COV-2 COVID-19 Unknown Completed Unive rsity of PFIZER VACCINE [place] [facility] SARS-COV-2 COVID-19 Unknown Completed Unive rsity of PFIZER VACCINE [place] [facility] SARS-COV-2 COVID-19 Unknown Completed Unive rsity of PFIZER VACCINE [place] [facility] SARS-COV-2 COVID-19 Unknown Completed Unive rsity of PFIZER VACCINE [facility] Branch SARS-COV-2 COVID-19 Unknown Completed Unive rsity of PFIZER VACCINE [place] [facility] SARS-COV-2 COVID-19 Unknown Completed Unive rsity of PFIZER VACCINE [facility] SARS-COV-2 COVID-19 Unknown Completed Unive rsity of PFIZER VACCINE [place] [facility] SARS-COV-2 COVID-19 Unknown Completed Unive rsity of PFIZER VACCINE [place] [facility] SARS-COV-2 COVID-19 Unknown Completed Unive rsity of PFIZER VACCINE [facility] SARS-COV-2 COVID-19 Unknown Completed Unive rsity of PFIZER VACCINE [place] Medi cheryl Branch SARS-COV-2 COVID-19 Unknown Completed Unive rsity of PFIZER VACCINE [facility] Branch SARS-COV-2 COVID-19 Unknown Completed Unive rsity of PFIZER VACCINE [facility] Branch SARS-COV-2 COVID-19 Unknown Completed Unive rsity of PFIZER VACCINE [facility] Branch SARS-COV-2 COVID-19 Unknown Completed Unive rsity of PFIZER VACCINE [facility] Branch SARS-COV-2 COVID-19 Unknown Completed Unive rsity of PFIZER VACCINE [facility] Branch SARS-COV-2 COVID-19 Unknown Completed Unive rsity of PFIZER VACCINE [facility] Branch SARS-COV-2 COVID-19 Unknown Completed Unive rsity of PFIZER VACCINE [facility] Branch SARS-COV-2 COVID-19 Unknown Completed Unive rsity of PFIZER VACCINE [facility] Branch Vital Signs Vital Name Observation Time Observation Value Comments Source Systolic blood 2022-12-10 19:14:00 127 mm[Hg] Univer sity of pressure [facility] Diastolic blood 2022-12-10 19:14:00 85 mm[Hg] Unive rsity of pressure [facility] Heart rate 2022-12-10 19:14:00 106 /min Universi ty [facility] Body temperature 2022-12-10 19:14:00 36.44 Shima Univ ersity of [facility] Respiratory rate 2022-12-10 19:14:00 18 /min Univ ersity of [facility] Body height 2022-12-10 19:14:00 160 cm [facility] Body weight 2022-12-10 19:14:00 114.851 kg [facility] BMI 2022-12-10 19:14:00 44.85 kg/m2 [facility] ty [facility] Heart rate 2022-12-08 00:26:00 88 /min [facility] ty [facility] Systolic blood 2022-12-07 23:02:00 128 mm[Hg] Univer sity of pressure [facility] Diastolic blood 2022-12-07 23:02:00 82 mm[Hg] Unive rsity of pressure [facility] Body temperature 2022-12-07 23:02:00 37.39 Shima Univ ersity of [facility] Respiratory rate 2022-12-07 23:02:00 16 /min Univ ersity of [place] [facility] Body height 2022-12-07 23:02:00 160 cm Universi ty of [place] [facility] Body weight 2022-12-07 23:02:00 97.523 kg Universi ty of [place] [facility] BMI 2022-12-07 23:02:00 38.09 kg/m2 Universi ty of [place] [facility] Oxygen saturation in 2022-12-07 23:02:00 99 /min University of Arterial blood by [place] [employer] cheryl Pulse oximetry Branch Systolic blood 2022-12-07 22:04:00 115 mm[Hg] Univer sity of pressure [place] [facility] Diastolic blood 2022-12-07 22:04:00 62 mm[Hg] Unive rsity of pressure [place] [facility] Heart rate 2022-12-07 22:04:00 121 /min Universi ty of [place] [facility] Body temperature 2022-12-07 22:04:00 37.39 Shima Univ ersity of [place] [facility] Body height 2022-12-07 22:04:00 160 cm Universi ty of [place] [facility] Body weight 2022-12-07 22:04:00 115.214 kg Universi ty of [place] [facility] BMI 2022-12-07 22:04:00 44.99 kg/m2 Universi ty of [place] [facility] Oxygen saturation in 2022-12-07 22:04:00 98 /min University of Arterial blood by [facility] Pulse oximetry Branch Systolic blood 2022-12-04 20:31:00 106 mm[Hg] Univer sity of pressure [place] [facility] Diastolic blood 2022-12-04 20:31:00 68 mm[Hg] Unive rsity of pressure [place] [facility] Heart rate 2022-12-04 20:26:00 106 /min Universi ty of [place] [facility] Body temperature 2022-12-04 20:26:00 36.17 Shima Univ ersity of [place] [facility] Respiratory rate 2022-12-04 20:26:00 20 /min Univ ersity of [place] [facility] Body height 2022-12-04 20:26:00 162.6 cm Universi ty of [place] [facility] Body weight 2022-12-04 20:26:00 117.68 kg Universi ty of [place] [facility] BMI 2022-12-04 20:26:00 44.53 kg/m2 Universi ty of [place] [facility] Systolic blood 2022-11-27 18:29:00 126 mm[Hg] Univer sity of pressure [place] [facility] Diastolic blood 2022-11-27 18:29:00 84 mm[Hg] Unive rsity of pressure [place] [facility] Heart rate 2022-11-27 18:29:00 100 /min Universi ty of [place] [facility] Body temperature 2022-11-27 18:29:00 36.56 Sh[place] Univ ersity of [place] [facility] Respiratory rate 2022-11-27 18:29:00 20 /min Univ ersity of [place] [facility] Body height 2022-11-27 18:29:00 162.6 cm Universi ty [facility] [place] [facility] Body weight 2022-11-27 18:29:00 123.52 kg Universi ty of [place] [facility] BMI 2022-11-27 18:29:00 46.74 kg/m2 Universi ty of [place] [facility] Systolic blood 2022-11-12 18:42:00 120 mm[Hg] Univer sity of pressure [place] [facility] Diastolic blood 2022-11-12 18:42:00 60 mm[Hg] Unive rsity of pressure [place] [facility] Heart rate 2022-11-12 18:38:00 90 /min Universi ty of [place] [facility] Body temperature 2022-11-12 18:38:00 36.78 Shima Univ ersity of [place] [facility] Respiratory rate 2022-11-12 18:38:00 18 /min Univ ersity of [place] [facility] Body height 2022-11-12 18:38:00 162.6 cm Universi ty of [place] [facility] Body weight 2022-11-12 18:38:00 127.098 kg Universi ty of [place] [facility] BMI 2022-11-12 18:38:00 48.10 kg/m2 Universi ty of [place] [facility] Systolic blood 2021-07-18 13:14:00 114 mm[Hg] Univer sity of pressure [place] [facility] Diastolic blood 2021-07-18 13:14:00 73 mm[Hg] Unive rsity of pressure [place] [facility] Heart rate 2021-07-18 13:14:00 71 /min Universi ty of [place] [facility] Body temperature 2021-07-18 13:14:00 36.78 Shima Univ ersity of [place] [facility] Body height 2021-07-18 13:14:00 162.6 cm [facility] Body weight 2021-07-18 13:14:00 119.024 kg [facility] BMI 2021-07-18 13:14:00 45.04 kg/m2 [facility] Procedures Procedure Date / Time Performing Clinician Source Performed CONSENT/REFUSAL FOR 2022-12-07 22:54:39 Doctor Haresh [facility] PO[facility] URINALYSIS 2022-12-07 22:24:00 Justyna [facility] o f [facility] POCT URINALYSIS 2022-12-04 20:27:00 Ghazala Pan [facility] MEDICATION CORRESPONDENCE 2022-11-30 05:01:00 Doctor Haresh, [facility] [place] [facility] POCT URINALYSIS 2022-11-27 18:29:00 Ghazala Pan [facility] SECOND AND THIRD 2022-11-20 15:35:[address] [facility] TRIMESTER ULTRASOUND Medical [facility] POCT URINALYSIS W/O 2022-11-12 18:29:00 Ghazala Pan [facility] SPECIFIC GRAVITY [facility] POCT TEST 2022-11-12 18:27:00 Ghazala Pan [facility] CONSENT/REFUSAL FOR 2022-11-12 18:02:53 Doctor Haresh [facility] DIAGNOSIS [facility] US OB TRANSVAGINAL 2021-07-18 13:45:56 Anisha Jorgensen [facility] [employer] [facility] ULTRASOUND 2021-07-18 05:01:00 Doctor Haresh [facility] Name [facility] Encounters Start End Encounter Admission Attending Care Care Encounter Source Date/Time Date/Time Type Type Clinicians Facility Department ID 2023-01-01 2023-01-01 Outpatient R [facility] [id number] Univers 15:00:00 15:00:00 [facility] 2022-12-10 2022-12-10 Routine KASSIDY Pan [id number] Univers 14:15:00 14:30:00 Ghazala Ann [employer] [id number] ity of Visit [facility] [id number] [place] as MATERNAL [id number] [facility] ical & CHILD [address] [place] [address] 2022-12-10 2022-12-10 [facility] [id number] Univers 14:15:00 14:15:00 GHAZALA lanier o f [facility] 2022-12-07 2022-12-07 Emergency [facility] [id number] Univers 18:04:00 19:27:00 MARLINE lanier [facility] 2022-12-07 2022-12-07 [facility] [id number] Univers 18:04:00 19:27:00 [facility] [id number] ity of [place] [id number] [place] [facility] [id number] [address] 2022-12-07 2022-12-07 [facility] [id number] Univers 17:00:00 17:43:03 AYAH lanier [facility] 2022-12-07 2022-12-07 Urgent Justyna [facility] [id number] Univers 17:00:00 17:43:03 Care Unknown, Attending [facility] [id number] [facility] [id number] [place] as PRESTON?BLEA [id number] [address] MEDICAL OFFICE BUILDING 2022-12-04 2022-12-04 Out[facility] [id number] Univers 15:15:00 16:00:51 GABBY yannick [facility] 2022-12-04 2022-12-04 [facility] 1.2.840.114 [id number] Univers 15:15:00 16:00:51 Gabby A [employer] 350.1.13.10 ity of Visit [facility] 4.2.7.2.686 Billy as MATERNAL [phone] Med ical & CHILD 107 [facility] 2022-11-30 2022-11-30 Orders Doctor KEKE 1.2.840.114 [id number] Univers 00:00:00 00:00:00 Only Unassigned, GREGORY 350.1.13.10 ity of [facility] 4.2.7.2.686 Billy as [id number] [facility] [address] 2022-11-28 2022-11-28 Telephone [facility] 1.2.840.114 [id number] Univers 00:00:00 00:00:00 Ghazala C [employer] 350.1.13.10 ity of [facility] 4.2.7.2.686 Billy as MATERNAL [phone] [facility] & CHILD [address] [place] [address] 2022-11-27 2022-11-27 Outpatient R [facility] [id number] Univers 13:30:00 13:44:51 GABBY ity of [facility] 2022-11-27 2022-11-27 Routine [facility] 1.2.840.114 [id number] Univers 13:30:00 13:44:51 Gabby A [employer] 350.1.13.10 ity of Visit [facility] 4.2.7.2.686 Billy as MATERNAL [id number] [facility] & CHILD [address] [place] [address] 2022-11-26 2022-11-26 Nurse Santiago Jenkins, KEKE 1.2.840.114 [id number] Univers 00:00:00 00:00:00 Triage Devorah JENKINS 350.1.13.10 ity of HOSPITAL 4.2.7.2.686 Billy as [phone] [facility] [address] 2022-11-22 2022-11-22 Abstract [facility] 1.2.840.114 [id number] Univers 00:00:00 00:00:00 Ghazala C [employer] 350.1.13.10 ity of [facility] 4.2.7.2.686 Billy as MATERNAL [phone] [facility] ical & CHILD [address] [place] [address] 2022-11-20 2022-11-20 Outpatient P KENNY [facility] [id number] Univers 10:00:00 11:46:58 ALEKSANDER it y of ELLIOTT Paez [facility] 2022-11-20 2022-11-20 Meteorological Aide Ultrasound, [facility] 1.2 .840.114 [id number] Univers 10:00:00 11:46:58 Visit Addison Elliott Maldonado [employer] 350.1. 13.10 ity of [facility] 4.2.7.2.686 Billy as MATERNAL [phone] Med ical & CHILD 369 [facility] 2022-11-12 2022-11-12 Outpatient R MAXIM [facility] [id number] Univers 13:45:00 14:44:56 GHAZALA ity o f [facility] 2022-11-12 2022-11-12 Initial Maxim [facility] 1.2.999.326 [id number] Univers 13:45:00 14:44:56 Ghazala Ann [employer] 350.1.13.10 ity of Visit [facility] 4.2.7.2.686 Billy as MATERNAL [id number] [facility] ica & CHILD 107 [facility] 2022-11-12 2022-11-12 Orders Doctor KEKE 1.2.840.114 [id number] Univers 00:00:00 00:00:00 Only Unassigned, GREGORY 350.1.13.10 ity of [facility] 4.2.7.2.686 Billy as [id number] [address] 2021-08-07 2021-08-07 Outpatient R ANISHA JORGENSEN [facility] [id number] Univers 08:15:00 08:15:00 ity of [facility] 2021-08-06 2021-08-06 Telephone Anisha Jorgensen [facility] 1.2.840.114 [id number] Univers 00:00:00 00:00:00 Ronald CAMACHO 350.1.13.10 i ty of [place] [phone] Nj dical [address] 2021-07-18 2021-07-18 [facility] 1.2.979.332 [id number] Univers 08:00:00 08:55:39 Visit Cam JANICE 350.1.13.10 i ty of [place] [id number] [address] 2021-07-18 2021-07-18 Outpatient [facility] [id number] Univers 08:00:00 08:55:39 ity of [facility] 2021-07-18 2021-07-18 Outpatient R JAMEEL [facility] [id number] Univers 08:00:00 08:00:00 ity of [facility] 2021-07-18 2021-07-18 Orders Doctor DAVIES 1.2.840.114 [id number] Univers 00:00:00 00:00:00 Only Unassigned, GREGORY 350.1.13.[address] [facility] 4.2.7.2.686 Billy as [phone] [facility] [address] 2021-07-13 2021-07-13 Telephone Jameel [facility] 1.2.840.114 [id number] Univers 00:00:00 00:00:00 Cam JANICE 350.1.13.10 i ty [place] [id number] [address] 2021-07-06 2021-07-06 Outpatient R [facility] [id number] Univers 16:05:13 23:59:00 ity of [facility] 2021-07-06 2021-07-06 [facility] Jameel [facility] 1.2.840.114 [id number] Univers 16:05:13 23:59:00 Encounter Ronald CAMACHO 350.1.13.10 it[place] [id number] [facility] [address] 2021-07-06 2021-07-06 Orders Doctor DAVIES 1.2.840.114 [id number] Univers 00:00:00 00:00:00 Only Unassigned, GREGORY 350.1.13.10 [facility] 4.2.7.2.686 Billy as [phone] [address] 2021-07-05 2021-07-05 Outpatient R [facility] [id number] Univers 11:00:00 11:00:00 ity of [facility] 2021-06-29 2021-06-29 Outpatient R ANISHA JORGENSEN [facility] [id number] Univers 09:30:00 10:46:28 ity of [facility] 2021-06-29 2021-06-29 Office Anisha Jorgensen [facility] 1.2.941.739 [id number] Univers 09:30:00 10:46:28 Visit Ronald CAMACHO 350.1.13.10 i ty of [place] [phone] Me dical NAL 134 [facility] 2021-06-29 2021-06-29 Orders Doctor KEKE 1.2.840.114 [id number] Univers 00:00:00 00:00:00 Only Unassigned, GREGORY 350.1.13.[address] [facility] 4.2.7.2.686 Billy as [id number] [address] 2021-06-27 2021-06-27 [facility] [id number] Univers 11:00:00 11:00:00 ROSHUNDA ity o f [facility] 2021-06-27 2021-06-27 [facility] [id number] Univers 11:00:00 11:00:00 ROSHUNDA ity o f [facility] 2021-06-26 2021-06-26 Meteorological Aide 2, Adc Lab [facility] 1.2.840.114 [id number] Univers 16:00:00 16:15:00 Visit Anisha Jorgensen Ronald CAMACHO 350.1.13.10 ity of [place] [id number] Me dical NAL 353 [facility] 2021-06-26 2021-06-26 Outpatient R [facility] [id number] Univers 16:00:00 16:00:00 ity of [facility] 2021-06-26 2021-06-26 Outpatient R ANISHA JORGENSEN [facility] [id number] Univers 16:00:00 16:00:00 ity of [facility] 2021-06-23 2021-06-23 Meteorological Aide 2, Adc Lab [facility] 1.2.840.114 [id number] Univers 16:00:00 16:15:00 Visit Anisha Jorgensen [place] 350.1.13.10 ity of [place] [id number] Nj dical NAL [address] [place] [address] 2021-06-23 2021-06-23 Outpatient R [facility] [id number] Univers 16:00:00 16:00:00 ity of [facility] 2021-06-23 2021-06-23 Outpatient R [facility] [id number] Univers 16:00:00 16:00:00 ity [facility] 2021-06-23 2021-06-23 Outpatient R [facility] [id number] Univers 11:00:00 11:00:00 ity of [facility] 2021-06-21 2021-06-21 Meteorological Aide 2, Adc Lab [facility] 1.2.840.114 [id number] Univers 16:00:00 16:15:00 Visit Anisha Jorgensen [place] 350.1.13.10 ity of [place] [id number] Nj dical NAL [address] [place] [address] 2021-06-21 2021-06-21 Outpatient R ANISHA JORGENSEN [facility] [id number] Univers 16:00:00 16:00:00 ity [facility] 2021-06-21 2021-06-21 Initial Anisha Jorgensen [facility] 1.2.389.098 [id number] Univers 10:00:00 10:59:11 Cam [place] 350.1.13.10 ity of Visit [place] [id number] Nj dical NAL 134 [facility] 2021-06-21 2021-06-21 Outpatient R ANISHA JORGENSEN [facility] [id number] Univers 10:00:00 10:59:11 ity of [facility] 2021-06-21 2021-06-21 Orders Doctor KEKE 1.2.840.114 [id number] Univers 00:00:00 00:00:00 Only Unassigned, GREGORY 350.1.13.10 ity of [facility] 4.2.7.2.686 Billy as [id number] [address] 2021-06-19 2021-06-19 Telephone Anisha Jorgensen [facility] 1.2.840.114 [id number] Univers 00:00:00 00:00:00 Cam MENNO 350.1.13.10 i ty of [place] [phone] Nj dical [address] 2021-05-31 2021-05-31 [facility] 1.2.515.977 [id number] Univers 00:00:00 00:00:00 Rosjmnda R [employer] 350.1.13.10 ity of [facility] 4.2.7.2.686 Billy as MATERNAL [phone] Med ical & CHILD [address] [place] [address] 2021-05-31 2021-05-31 [place] [facility] 1.2.156.774 [id number] Univers 00:00:00 00:00:00 Rosjmnda R [employer] 350.1.13.10 ity of [facility] 4.2.7.2.686 Billy as MATERNAL [id number] Med ical & CHILD [address] [place] [address] 2021-05-30 2021-05-30 Outpatient R KARAN [facility] [id number] Univers 10:00:00 10:59:06 ROSHUNDA ity o f [facility] 2021-05-30 2021-05-30 Initial [facility] 1.2.840.114 [id number] Univers 10:00:00 10:59:06 Rosjmnda R [employer] 350.1.13.10 ity of Visit [facility] 4.2.7.2.686 Billy as MATERNAL [phone] Med ical & CHILD 107 [facility] 2021-05-30 2021-05-30 Orders Doctor KEKE 1.2.840.114 [id number] Univers 00:00:00 00:00:00 Only Unassigned, GREGORY 350.1.13.10 ity of [facility] 4.2.7.2.686 Billy as [id number] [address] 2020-10-13 2020-10-13 [facility] [id number] Univers 14:00:00 14:00:00 ALMA ROSA lanier [facility] 2020-05-10 2020-05-10 Patient [facility] 1.2.840.114 [id number] Univers 00:00:00 00:00:00 Outreach Anthony BURK 350.1.13.10 i ty of [facility] [place] [phone] Nj dical [address] 2020-04-15 2020-04-15 [facility] 1.2.840.114 [id number] Univers 14:44:03 16:06:32 Visit Alma Rosa Camacho 350.1.13.10 ity of [place] [id number] Nj dical nal 134 [facility] 2020-04-15 2020-04-15 Out[facility] [id number] Univers 15:00:00 15:00:00 ALMA ROSA lanier [facility] 2020-04-15 2020-04-15 Orders Doctor DAVIES 1.2.840.114 [id number] Univers 00:00:00 00:00:00 Only Unassigned, GREGORY 350.1.13.10 ity of [facility] 4.2.7.2.686 Billy as [id number] [address] 2020-04-01 2020-04-01 Case [facility] 1.2.840.114 [id number] Univers 00:00:00 00:00:00 Management Alma Rosa Camacho 350.1.13.10 ity of [place] [phone] Nj dical nal [address] [place] [address] 2020-03-31 2020-03-31 Office [facility] 1.2.840.114 [id number] Univers 15:10:04 16:47:36 Visit Alma Rosa Camacho 350.1.13.10 ity of [place] 4.2.7.2.686 Curt paez fiorellaio [phone] Nj dical nal [address] [place] [address] 2020-03-31 2020-03-31 [facility] [id number] Univers 15:30:00 15:30:00 ALMA ROSA itguille [facility] 2020-03-31 2020-03-31 Orders Doctor KEKE 1.2.840.114 [id number] Univers 00:00:00 00:00:00 Only Unassigned, GREGORY 350.1.13.10 ity of [facility] 4.2.7.2.686 Billy as [phone] [address] 2019-05-25 2019-05-25 [facility] [id number] Univers 15:00:00 15:00:00 AYAH lanier [facility] Results Test Description Test Time Test Comments Results Result Comments Source POCT URINALYSIS W SPECIFIC GRAVITY 2022-12-07 22:28:00 Test Item Value Reference Range Interpretation Comme nts POCT U SP GRAV (test code = 3255) 1.025 mg/dl 1.005-1.025 POCT PH U (test code = 3254) 5 mg/dl 5-8 POCT U LEUK EST (test code = 3263) Trace Negative - Negative POCT U NIT (test code = 3262) Positive Negative - Negative POCT U PROT (test code = 3259) ++ Negative - Negative POCT U GLU (test code = 3256) Normal Negative - Negative POCT U KETONE (test code = 3258) +++ Negative - Negative POCT U UROBILI (test code = 3260) 12 mg/dl 0.2-1 A POCT U BILI (test code = 3261) ++ Negative - Negative POCT U BLD (test code = 3257) Negative Negative - Negative POCT U COLOR (test code = 3266) Lisset POCT U APPEAR (test code = 3267) clear Lab Interpretation (test code = 14335-7) Abnormal [facility] URINALYSIS W SPECIFIC [id number] 22:28:00 Test Item Value Reference Range Interpretation Comments POCT U SP GRAV (test code = 1.025 mg/dl 1.005-1.025 3255) POCT PH U (test code = 3254) 5 mg/dl 5-8 POCT U LEUK EST (test code = Trace Negative - Negative 3263) POCT U NIT (test code = 3262) Positive Negative - Negative POCT U PROT (test code = ++ Negative - Negative 3259) POCT U GLU (test code = 3256) Normal Negative - Negative POCT U KETONE (test code = +++ Negative - Negative 3258) POCT U UROBILI (test code = 12 mg/dl 0.2-1 A 3260) POCT U BILI (test code = ++ Negative - Negative 3261) POCT U BLD (test code = 3257) Negative Negative - Negative POCT U COLOR (test code = Lisset 3266) POCT U APPEAR (test code = clear 3267) Lab Interpretation (test code Abnormal = 65143-6) [facility] URINALYSIS W SPECIFIC [id number] 20:27:00 Test Item Value Reference Range Interpretation Comments POCT U SP GRAV (test code = 3255) . 1.005-1.025 POCT PH U (test code = 3254) 5 mg/dl 5-8 POCT U LEUK EST (test code = Trace Negative - Negative 3263) POCT U NIT (test code = 3262) Neg Negative - Negative POCT U PROT (test code = 3259) 1+ Negative - Negative POCT U GLU (test code = 3256) Nml Negative - Negative POCT U KETONE (test code = 3258) 3+ Negative - Negative POCT U UROBILI (test code = 3260) . 0.2-1 POCT U BILI (test code = 3261) . Negative - Negative POCT U BLD (test code = 3257) Trace Negative - Negative POCT U COLOR (test code = 3266) POCT U APPEAR (test code = 3267) [facility] URINALYSIS W SPECIFIC [id number] 18:30:00 Test Item Value Reference Range Interpretation Comments POCT U SP GRAV (test code = 3255) . 1.005-1.025 POCT PH U (test code = 3254) 7 mg/dl 5-8 POCT U LEUK EST (test code = Trace Negative - Negative 3263) POCT U NIT [...] POCT U APPEAR (test code = 3267) [facility] URINALYSIS W/O SPECIFIC [id number] 18:30:00 Test Item Value Reference Range Interpretation [...] Negative Lab Interpretation (test code = Abnormal 71996-3) [facility] URINALYSIS W/O SPECIFIC [id number] 18:30:00 Test Item Value Reference Range Interpretation [...] Negative Lab Interpretation (test code = Abnormal 79925-6) [facility] URINALYSIS W/O SPECIFIC [id number] 18:30:00 Test Item Value Reference Range Interpretation [...] Negative Lab Interpretation (test code = Abnormal 15867-5) [facility] [id number] 18:27:00 Test Item Value Reference Range Interpretation Comments POCT PREG (test code = 1605) Positive On board controls acceptable with C Yes Line (test code = 3574) POCT PREG LOT # (test code = 3575) POCT PREG TEST DATE (test code = 3576) [facility] [id number] 18:27:00 Test Item Value Reference Range Interpretation Comments POCT PREG (test code = 1605) Positive On board controls acceptable with C Yes Line (test code = 3574) POCT PREG LOT # (test code = 3575) POCT PREG TEST DATE (test code = 3576) [facility] [id number] 18:27:00 Test Item Value Reference Range Interpretation Comments POCT PREG (test code = 1605) Positive On board controls acceptable with C Yes Line (test code = 3574) POCT PREG LOT # (test code = 3575) POCT PREG TEST DATE (test code = 3576) [facility]
[2022-12-18] MEDS ORDERED: DIPHENHYDRAMINE 50 MG/ML VIAL ONE (11:17)
[2022-12-18] MEDS ORDERED: FAMOTIDINE 20 MG/2 ML VIAL IV ONE (11:17)
[2022-12-18] MEDS ORDERED: NA CHLORIDE 0.9% 1,000 ML ONE ×2 (11:17→12:25)
[2022-12-18 11:22] LABS: Absolute Lymphocytes (CBC) 1.3 K/uL (0.7-4.9); Hematocrit 42.5 % (36.0-45.0); Lymphocytes % 12.1 % (15.3-44.8); MCV 84.8 fL (80-100); MPV 9.1 fL (7.6-11.3); Platelets 299 thou/uL (152-406); RBC Red Blood Cell Count 5.01 M/uL (3.86-4.86)
[2022-12-18 11:39] LABS: Albumin 3.5 g/dL (3.4-5.0); Potassium 2.9 mEq/L (3.5-5.1); Protein, Total 7.2 g/dL (6.4-8.2)
[2022-12-18] MEDS ORDERED: POTASSIUM 25 MEQ EFFERV TAB ONE (11:56)
[2022-12-18] MEDS ORDERED: KCL 20 MEQ/100 mL IVPB 100 ML IV ONE (11:57)
--- NOTE | 2022-12-18 14:18 | ER ---
Nurse's Notes [facility] Name: Judi Frank Age: 22 yrs Sex: Female : 2000 Arrival Date: 12/18/2022 Time: 10:40 Bed 9 Private MD: Diagnosis: Hyperemesis gravidarum with metabolic disturbance;Hypokalemia Presentation: 12/18 10:46 Chief complaint: Patient states: nausea and vomiting. States 10 weeks and has cp4 been on 5 different medications for nausea that did not work. 10:46 Coronavirus screen: Client denies travel out of the [place] in the last 14 days. At this cp4 time, the client does not indicate any symptoms associated with coronavirus-19. Ebola Screen: Patient negative for fever greater than or equal to 101.5 degrees Fahrenheit, and additional compatible Ebola Virus Disease symptoms Patient denies exposure to infectious person. Patient denies travel to an Ebola-affected area in the 21 days before illness onset. No symptoms or risks identified at this time. Initial Sepsis Screen: Does the patient meet any 2 criteria? No. Patient's initial sepsis screen is negative. Does the patient have a suspected source of infection? No. Patient's initial sepsis screen is negative. Risk Assessment: Do you want to hurt yourself or someone else? Patient reports no desire to harm self or others. Onset of symptoms was August 2022. 10:46 Method Of Arrival: Ambulatory cp4 10:46 Acuity: NEIDA 4 cp4 Triage Assessment: 10:46 General: Appears in no apparent distress. Behavior is calm, cooperative, appropriate cp4 for age. Pain: Denies pain. GI: Reports nausea, vomiting. [employer] WORK[employer]: 10:46 2, Full Term 0, Premature 0, 1, Living 0, Verified cp4 Historical: - Allergies: 10:46 No Known Allergies; cp4 - Home Meds: 10:46 promethazine 25 mg Oral tablet 1 tab [Active]; cp4 - PMHx: 10:46 Anemia; cp4 - Immunization history:: Adult Immunizations up to date. - Social history:: Smoking status: Patient denies any tobacco usage or history of. Screenin:59 [facility] ED Fall Risk Assessment (Adult) History of falling in the last 3 months, cp4 including since admission No falls in past 3 months (0 pts) Confusion or Disorientation No (0 pts) Intoxicated or Sedated No (0 pts) Impaired Gait No (0 pts) Mobility Assist Device Used No (0 pt) Altered Elimination No (0 pt) Score/Fall Risk Level 0 - 2 = Low Risk Oriented to surroundings, Maintained a safe environment, Educated pt \T\ family on fall prevention, incl call for assistance when getting out of bed, Hourly rounding (assess needs \T\ fall precautionary measures) done. Abuse screen: Denies threats or abuse. Nutritional screening: No deficits noted. Tuberculosis screening: No symptoms or risk factors identified. Assessment: 10:59 GI: Abdomen is round non-distended. cp4 Vital Signs: 10:46 BP 127 / 95; Pulse 103; Resp 16; Temp 98.3; Pulse Ox 99% ; Weight 111.58 kg; Height 5 cp4 ft. 4 in. ; 14:21 BP 133 / 84; Pulse 86; Resp 18; Pulse Ox 100% ; cp4 10:46 Body Mass Index 42.23 (111.58 kg, 162.56 cm) cp4 ED Course: 10:43 Patient arrived in ED. kj1 10:44 Sandra Rivas FNP-C [facility] snw 10:44 Carson Lund MD is Attending Physician. snw 10:46 Arm band placed on right wrist. Patient placed in the treatment room. cp4 10:52 Donna Reese is Primary Nurse. cp4 10:57 Triage completed. cp4 10:59 Bed in low position. Call light in reach. Side rails up X 1. cp4 10:59 No provider procedures requiring assistance completed. cp4 11:16 CBC with Diff Sent. cp4 11:16 CMP Sent. cp4 11:16 Inserted saline lock: 20 gauge in right antecubital area, using aseptic technique. cp4 Blood collected. 14:29 Provided Education on: hyperemesis gravidaum. cp4 14:29 intact, bleeding controlled, No redness/swelling at site. Pressure dressing applied. cp4 Administered Medications: 11:15 Drug: Famotidine IVP 20 mg IVP once; dilute with 10 mL 0.9% NaCl; give over 2 minutes cp4 Route: IVP; Site: right antecubital; 13:30 Follow up: Response: No adverse reaction cp4 11:15 Drug: diphenhydrAMINE IVP 12.5 mg IVP once Route: IVP; Site: right antecubital; cp4 13:29 Follow up: Response: No adverse reaction cp4 11:16 Drug: NS 0.9% IV 1000 ml IV at 1 bolus Per protocol; 1000 mL bolus Route: IV; Rate: 1 cp4 bolus; Site: right antecubital; 13:30 Follow up: Response: No adverse reaction; IV Status: Completed infusion cp4 11:54 Drug: Potassium Chloride IV 20 mEq IV at calculated rate once; administer over 1-2 cp4 hours Route: IV; Rate: calculated rate; Site: right antecubital; 13:29 Follow up: Response: No adverse reaction; IV Status: Completed infusion cp4 11:54 Drug: Potassium PO Effervescent Tablet 50 mEq PO once; dissolve in 4 ounces of water or cp4 juice Route: PO; 13:29 Follow up: Response: No adverse reaction cp4 Medication: 10:59 VIS not applicable for this client. cp4 Outcome: 14:17 Discharge ordered by . tami 14:29 Discharged to home ambulatory, cp4 14:29 Condition: stable 14:29 Discharge instructions given to patient, Instructed on discharge instructions, follow up and referral plans. medication usage, Demonstrated understanding of instructions, follow-up care, medications, Prescriptions given X 4, 14:30 Patient left the ED. cp4 Signatures: Renato Moeller MD MD cha Waters, Shelly, FULL STACK NET DEVELOPER-C FULL STACK NET DEVELOPER-Csnw Breann Carr1 Donna Reese cp4
--- NOTE | 2022-12-18 14:18 | EDPHYS ---
Physician Documentation [facility] Name: Judi Frank Age: 22 yrs Sex: Female : 2000 Arrival Date: 12/18/2022 Time: 10:40 Bed 9 Private MD: ED Physician Carson Lund HPI: 12/18 11:38 This 22 yrs old Female presents to ER via Ambulatory with complaints of Nausea/Vomiting snw - 10 WEEKS . 11:38 The patient presents to the emergency department with nausea, vomiting. Onset: The snw symptoms/episode began/occurred 10 week(s) ago, and became persistent. Possible causes: . The patient has experienced similar episodes in the past, multiple times, pt has been to [facility] dirt bike racer, + intrauterine . States she has been in ED 4-5 times for same. Has been on 4-5 antiemetic medications. Pt still has bruise from previous IV site to left arm. The patient has been recently seen by a physician: with similar presenting complaints, as noted. CRITICAL CARE RN: 10:46 2, Full Term 0, Premature 0, 1, Living 0, Verified cp4 Historical: - Allergies: 10:46 No Known Allergies; cp4 - Home Meds: 10:46 promethazine 25 mg Oral tablet 1 tab [Active]; cp4 - PMHx: 10:46 Anemia; cp4 - Immunization history:: Adult Immunizations up to date. - Social history:: Smoking status: Patient denies any tobacco usage or history of. ROS: 11:37 Constitutional: Negative for fever, chills, and weight loss, Eyes: Negative for injury, snw pain, redness, and discharge, ENT: Negative for injury, pain, and discharge, Neck: Negative for injury, pain, and swelling, Cardiovascular: Negative for chest pain, palpitations, and edema, Respiratory: Negative for shortness of breath, cough, wheezing, and pleuritic chest pain, Back: Negative for injury and pain, : Negative for injury, bleeding, discharge, and swelling, MS/Extremity: Negative for injury and deformity, Skin: Negative for injury, rash, and discoloration, Neuro: Negative for headache, weakness, numbness, tingling, and seizure, Psych: Negative for depression, anxiety, suicide ideation, homicidal ideation, and hallucinations, 11:37 Abdomen/GI: Positive for nausea and vomiting, abdominal cramps, hx of Hyperemesis , Exam: 11:38 Constitutional: This is an obese well developed patient who is awake, alert, and in no snw acute distress. Head/Face: Normocephalic, atraumatic. Eyes: Pupils equal round and reactive to light, extra-ocular motions intact. Lids and lashes normal. Conjunctiva and sclera are non-icteric and not injected. Cornea within normal limits. Periorbital areas with no swelling, redness, or edema. ENT: Nares patent. No nasal discharge, no septal abnormalities noted. Tympanic membranes are normal and external auditory canals are clear. Oropharynx with no redness, swelling, or masses, exudates, or evidence of obstruction, uvula midline. Mucous membranes moist. Neck: Trachea midline, no thyromegaly or masses palpated, and no cervical lymphadenopathy. Supple, full range of motion without nuchal rigidity, or vertebral point tenderness. No Meningismus. Chest/axilla: Normal chest wall appearance and motion. Nontender with no deformity. No lesions are appreciated. Cardiovascular: Regular rate and rhythm with a normal S1 and S2. No gallops, murmurs, or rubs. Normal PMI, no JVD. No pulse deficits. Respiratory: Lungs have equal breath sounds bilaterally, clear to auscultation and percussion. No rales, rhonchi or wheezes noted. No increased work of breathing, no retractions or nasal flaring. Abdomen/GI: Soft, non-tender, with normal bowel sounds. No distension or tympany. No guarding or rebound. No evidence of tenderness throughout. Back: No spinal tenderness. No costovertebral tenderness. Full range of motion. Skin: Warm, dry with normal turgor. Normal color with no rashes, no lesions, and no evidence of cellulitis. MS/ Extremity: Pulses equal, no cyanosis. Neurovascular intact. Full, normal range of motion. Neuro: Awake and alert, GCS 15, oriented to person, place, time, and situation. Cranial nerves II-XII grossly intact. Motor strength 5/5 in all extremities. Sensory grossly intact. Cerebellar exam normal. Normal gait. Psych: Awake, alert, with orientation to person, place and time. Behavior, mood, and affect are within normal limits. Vital Signs: 10:46 BP 127 / 95; Pulse 103; Resp 16; Temp 98.3; Pulse Ox 99% ; Weight 111.58 kg; Height 5 cp4 ft. 4 in. ; 14:21 BP 133 / 84; Pulse 86; Resp 18; Pulse Ox 100% ; cp4 10:46 Body Mass Index 42.23 (111.58 kg, 162.56 cm) cp4 MDM: 10:45 Patient medically screened. snw 11:40 Differential diagnosis: Hyperemesis. Data reviewed: vital signs, nurses notes. snw Historians other than the Patient: Parent: mom. 14:28 Response to treatment: the patient's symptoms have mildly improved after treatment, the snw patient's symptoms have markedly improved after treatment. Special discussion: Based on the patient's Hx, exam, and Dx evaluation, there is no indication for emergent surgery or inpatient Tx. It is understood by the patient/guardian that if the Sx's persist or worsen they need to return immediately for re-evaluation. Based on the history and exam findings, there is no indication for further emergent testing or inpatient evaluation. I discussed with the patient/guardian the need to see the OB Gyne specialist for further evaluation of the symptoms. I discussed with the patient/guardian the need to see the primary care provider for further evaluation of the symptoms. 12/18 11:01 Order name: CBC with Diff; Complete Time: 11:41 snw 12/18 11:01 Order name: CMP; Complete Time: 11:41 snw 12/18 11:01 Order name: Labs collected and sent; Complete Time: 11:16 snw 12/18 14:17 Order name: PO challenge: GATORADE; Complete Time: 14:21 tami Administered Medications: 11:15 Drug: Famotidine IVP 20 mg IVP once; dilute with 10 mL 0.9% NaCl; give over 2 minutes cp4 Route: IVP; Site: right antecubital; 13:30 Follow up: Response: No adverse reaction cp4 11:15 Drug: diphenhydrAMINE IVP 12.5 mg IVP once Route: IVP; Site: right antecubital; cp4 13:29 Follow up: Response: No adverse reaction cp4 11:16 Drug: NS 0.9% IV 1000 ml IV at 1 bolus Per protocol; 1000 mL bolus Route: IV; Rate: 1 cp4 bolus; Site: right antecubital; 13:30 Follow up: Response: No adverse reaction; IV Status: Completed infusion cp4 11:54 Drug: Potassium Chloride IV 20 mEq IV at calculated rate once; administer over 1-2 cp4 hours Route: IV; Rate: calculated rate; Site: right antecubital; 13:29 Follow up: Response: No adverse reaction; IV Status: Completed infusion cp4 11:54 Drug: Potassium PO Effervescent Tablet 50 mEq PO once; dissolve in 4 ounces of water or cp4 juice Route: PO; 13:29 Follow up: Response: No adverse reaction cp4 Disposition: 15:20 Co-signature as Attending Physician, Carson Lund MD I reviewed the patient's care rn provided by the Advanced Practice Provider and agree with the diagnosis and treatment plan. Disposition Summary: 12/18/22 14:17 Discharge Ordered Notes: Location: Home [facility] Condition: Stable [facility] Diagnosis - Hyperemesis gravidarum with metabolic disturbance tami - Hypokalemia [facility] Followup: snw - With: Emergency Department - When: As needed - Reason: Worsening of condition Followup: snw - With: Private Physician - When: 1 - 2 days - Reason: Recheck today's complaints, Continuance of care, Re-evaluation by your physician Discharge Instructions: - Discharge Summary Sheet snw - Potassium Content of Foods snw - Hyperemesis Gravidarum snw - Hypokalemia snw - Rehydration, Adult snw Forms: - Medication Reconciliation Form [facility] - Thank You Letter [facility] - Antibiotic Education [facility] - Prescription Opioid Use [facility] - Patient Portal Instructions [facility] - Leadership Thank You Letter [facility] Prescriptions: - ondansetron 4 mg Oral Tablet,disintegrating - take 1 tablet ORAL route every 6 to 8 hours for 5 days; 20 tablet; Refills: 0, [facility] Product Selection Permitted - promethazine 25 mg Rectal suppository - insert 1 suppository RECTAL route every 6 to 8 hours as needed for sleep; 15 tami suppository; Refills: 0, Product Selection Permitted - Potassium Chloride 20 meq Oral Packet - take 1 packet ORAL route once daily 1 packet in 6 (six) ounces of water or tami juice; Take after meal; 20 packet; Refills: 0, Product Selection Permitted - promethazine 25 mg Oral Tablet - take 1 tablet ORAL route every 6 hours As needed; 20 tablet; Refills: 0, tami Product Selection Permitted Signatures: Dispatcher [employer] Renato Boswell MD MD cha Waters, Shelly, CUT OFF OPERATOR SCORER-C CUT OFF OPERATOR SCORER-Csnw Carson Lund MD MD rn Potter, [facility]
[2022-12-18 14:48] VITALS: TEMP 98.3
[2022-12-18 14:50] VITALS: BP 133/84; O2SAT 100
== END 2022-12-18 14:30 | disposition home or self-care (01) ==
LOC: ER 10:40
DX: O21.1 Hyperemesis gravidarum with metabolic disturbance (principal); O99.281 Endocrine, nutritional and metabolic diseases complicating pregnancy, first trimester; Z3A.10 10 weeks gestation of pregnancy
CPT/HCPCS: 96365; 96361; 85025; 36415; 80053; 96375; 99284; 96366; J3480; J1200; J7030 ×2

== ENCOUNTER 2023-01-04 16:36 | Emergency (ER) | payer OTHER ==
--- OUTSIDE RECORDS SUMMARY | 2023-01-04 16:39 | XMS REPORT | Continuity of Care Document ---
:2000 Author Organization [facility] t Address [address] [address] [place] [address] Care Team Providers Name Role Phone Aleyda Fragoso Primary Care Physician Unavailable GABBY ALMAZAN Attending Clinician Unavailable Ghazala Fuchs Attending Clinician [phone] GHAZALA PAN Attending Clinician Unavailable MARLINE SHAH Attending Clinician Unavailable Marline Shah DO Attending Clinician AYAH JANSEN Attending Clinician Unavailable Ayah Jansen PA-C Attending Clinician Unknown, Attending Attending Clinician Unavailable Gabby Almazan CNM Attending Clinician Doctor Unassigned, [place] Attending Clinician Unavailable Santiago Jenkins RN, Devorah Beatty Attending Clinician Unavailable ELLIOTT VENTURA Attending Clinician Unavailable Ultrasound, Ang-Mfm Attending Clinician Unavailable Kenny Maldonado MD, Elliott Attending Clinician [phone] ANISHA JORGENSEN Attending Clinician Unavailable Anisha Jorgensen MD Attending Clinician ALEYDA RUSSO Attending Clinician Unavailable 2, [facility] Attending Clinician Unavailable Aleyda Fragoso Attending Clinician ALMA ROSA SANDOVAL Attending Clinician Unavailable Anthony Brown DO Attending Clinician Alma Rosa Sandoval MD Attending Clinician ANISHA JORGENSEN Admitting Clinician Unavailable Payers Payer Name Policy Type Policy Number Effective Date Expiration Date Jaci MARTINEZ [id number] 2022 00:00:00 Problems Condition Condition Condition Status [...] [place] [facility] Missed Missed Disease Active Univers [...] vomiting 4-12 ity of during during 00:00: [place] [address] [facility] Morbid Morbid Disease Active Univers obesity obesity 2-11 ity of with body with body 00:00: [facility] s mass index mass index 00 Me dical of of Branch 40.0-49.9 40.0-49.9 Obesity in Obesity in Disease Active U nivers 2-11 ity of 00:00: [address] Allergies, Adverse Reactions, Alerts Allergy Allergy Status Severity Reaction(s) Onset Inactive Treating Comm ents Source Name Type Date Date Clinician NO KNOWN Drug Active Univers ALLERGIE Class ity of S [facility] Social History Social Habit Start Date Stop Date Quantity Comments Source ASSERTION 2022-10-19 [facility] 00:00:00 [facility] intake 2022-12-07 2022-12-07 Ex-drinker [facility] 00:00:00 00:00:00 (finding) [facility] Tobacco use and 2022-11-12 2022-11-12 User of Universit y of exposure 00:00:00 00:00:00 smokeless [facility] Tobacco Comment 2022-11-12 2022-11-12 Vapes daily Universi ty of 00:00:00 00:00:[address] [facility] Exposure to 2021-07-08 2021-07-18 Not sure [facility] SARS-CoV-2 (event) 00:00:00 08:03:00 [facility] History of Social 2021-05-30 2021-05-30 Univers ity of function 00:00:00 00:00:00 [facility] Sex Assigned At [birth year] Universit y of 00:00:00 00:00:00 [facility] Smoking Status Start Date Stop Date Source Never smoked tobacco [facility] Medications Ordered Filled Start Stop [...] 12/07/22 at 1815, KRISTIE metoclopram 2022-02 Yes [id number] 10mg Take 1 Univers dodie HCl 10 0-20 tablet by ity of mg tablet 00:00: mouth [place] 00 every 6 Medical (six) Branch hours as needed for Nausea and Vomiting (N/V). metoclopram 2022-02 Yes [id number] 10mg Take 1 Univers dodie HCl 10 0-20 tablet by ity of mg tablet 00:00: mouth [place] 00 every 6 Medical (six) Branch hours as needed for Nausea and Vomiting (N/V). metoclopram 2022-02 Yes [id number] 10mg Take 1 Univers dodie HCl 10 0-20 tablet by ity of mg tablet 00:00: mouth [place] 00 every 6 Medical (six) Branch hours as needed for Nausea and Vomiting (N/V). metoclopram 2022-02 Yes [id number] 10mg Take 1 Univers dodie HCl 10 0-20 tablet by ity of mg tablet 00:00: mouth [place] 00 every 6 Medical (six) Branch hours as needed for Nausea and Vomiting (N/V). metoclopram 2022-02 Yes [id number] 10mg Take 1 Univers dodie HCl 10 0-20 tablet by ity of mg tablet 00:00: mouth [place] 00 every 6 Medical (six) Branch hours as needed for Nausea and Vomiting (N/V). proMETHazin 2022-02 Yes [id number] 25mg Insert 1 Univers e 25 mg 0-17 Suppositor ity of suppository 00:00[place] rectum Medical every 4 Branch (four) hours as needed for Nausea and Vomiting (N/V). proMETHazin 2022-2022- No [id number] 25mg Insert 1 Univers e 25 mg 0-17 10-20 Suppositor ity o f suppository 00:00: 00:00 y into [place] 00 :00 rectum Medical every 4 Branch (four) hours as needed for Nausea and Vomiting (N/V). proMETHazin 2022-02- No [id number] 25mg Insert 1 Univers e 25 mg [...] Branch NEEDED FOR NAUSEA doxylamine- 2022-02 Yes [id number] Day 1: Univers pyridoxine, 0-12 Take 2 ity of vit B6, 00:00: tablet [place] (DICLEGIS) 00 before Medical 10-10 mg bed. Day Branch per tablet 2: If still having nausea and vomiting 2 tablet bed. Day 3 take 1 tablet in am and 2 tablet at bed doxylamine- 2022-02 Yes [id number] Day 1: Univers pyridoxine, 0-12 Take 2 [...] 2 tablet at bed doxylamine- 2022-02- No [id number] Day 1: Univers pyridoxine, 0-12 10-17 Take 2 ity o f vit B6, 00:00: 00:00 tablet [place] (DICLEGIS) 00 :00 before Medical 10-10 mg bed. Day Branch per tablet 2: If still having nausea and vomiting 2 tablet bed. Day 3 take 1 tablet in am and 2 tablet at bed proMETHazin 2022-02 Yes [id number] 25mg Take 1 Univers e 25 mg 0-10 tablet by ity of tablet 00:00: mouth [place] 00 every 4 Medical (four) Branch hours as needed for Nausea and Vomiting (N/V). proMETHazin 2022-02 Yes [id number] 25mg Take 1 Univers e 25 mg 0-10 tablet by ity of tablet 00:00: mouth [place] 00 every 4 Medical (four) Branch hours as needed for Nausea and Vomiting (N/V). proMETHazin 2022-02 Yes [id number] 25mg Take 1 Univers e 25 mg 0-10 tablet by ity of tablet 00:00: mouth [place] 00 every 4 Medical (four) Branch hours as needed for Nausea and Vomiting (N/V). proMETHazin 2022-02 Yes [id number] 25mg Take 1 Univers e 25 mg 0-10 tablet by ity of tablet 00:00: mouth [place] 00 every 4 Medical (four) Branch hours as needed for Nausea and Vomiting (N/V). proMETHazin 2022-02- No [id number] 25mg Take 1 Univers e 25 mg 0-10 10-17 tablet by ity of tablet 00:00: 00:00 mouth [place] 00 :00 every 4 Medical (four) Branch hours as needed for Nausea and Vomiting (N/V). Yes [id number] 1{tbl} Take 1 U nivers zsh33-xxix- 9-25 tablet by ity of folic acid 00:00: mouth in [place] 29 mg iron- 00 the Medical 1 mg per morning. Branch tablet Yes [id number] 1{tbl} Take 1 U nivers yoc40-pkla- 9-25 tablet by ity of folic acid 00:00: mouth in [place] 29 mg iron- 00 the Medical 1 mg per morning. Branch tablet Yes [id number] 1{tbl} Take 1 U nivers vmx73-iatj- 9-25 tablet by ity of folic acid 00:00: mouth in [place] 29 mg iron- 00 the Medical 1 mg per morning. Branch tablet Yes [id number] 1{tbl} Take 1 U nivers mxq75-cusi- 9-25 tablet by ity of folic acid 00:00: mouth in [place] 29 mg iron- 00 the Medical 1 mg per morning. Branch tablet Yes [id number] 1{tbl} Take 1 U nivers qib33-ypdi- 9-25 tablet by ity of folic acid 00:00: mouth in [place] 29 mg iron- 00 the Medical 1 mg per morning. Branch tablet Yes [id number] 1{tbl} Take 1 U nivers igm86-janb- 9-25 tablet by ity of folic acid 00:00: mouth in [place] 29 mg iron- 00 the Medical 1 mg per morning. Branch tablet Yes [id number] 1{tbl} Take 1 U nivers yzf47-esah- 9-25 tablet by ity of folic acid 00:00: mouth in [place] 29 mg iron- 00 the Medical 1 mg per morning. Branch tablet Yes [id number] 1{tbl} Take 1 U nivers hpp40-tojv- 9-25 tablet by ity of folic acid 00:00: mouth in [place] 29 mg iron- 00 the Medical 1 mg per morning. Branch tablet Yes [id number] 1{tbl} Take 1 U nivers pgf90-ozuy- 9-25 tablet by ity of folic acid 00:00: mouth in [place] 29 mg iron- 00 the Medical 1 mg per morning. Branch tablet Yes [id number] 1{tbl} Take 1 U nivers bhv48-xkmg- 9-25 tablet by ity of folic acid 00:00: mouth in [place] 29 mg iron- 00 the Medical 1 mg per morning. Branch tablet Yes [id number] 1{tbl} Take 1 U nivers khl88-ulwt- 9-25 tablet by ity of folic acid 00:00: mouth in [place] 29 mg iron- 00 the Medical 1 mg per morning. Branch tablet Yes [id number] 1{tbl} Take 1 U nivers kij03-dbtg- 9-25 tablet by ity of folic acid 00:00: mouth in [place] 29 mg iron- 00 the Medical 1 mg per morning. Branch tablet Yes [id number] 1{tbl} Take 1 U nivers eod31-xfrm- 9-25 tablet by ity of folic acid 00:00: mouth in [place] 29 mg iron- 00 the Medical 1 mg per morning. Branch tablet Yes [id number] 1{tbl} Take 1 U nivers npj09-wsgs- 9-25 tablet by ity of folic acid 00:00: mouth in [place] 29 mg iron- 00 the Medical 1 mg per morning. Branch tablet Yes [id number] 1{tbl} Take 1 U nivers qqa80-ynbp- 9-25 tablet by ity of folic acid 00:00: mouth in [place] 29 mg iron- 00 the Medical 1 mg per morning. Branch tablet Yes [id number] 1{tbl} Take 1 U nivers ukw74-nvek- 9-25 tablet by ity of folic acid 00:00: mouth in [place] 29 mg iron- 00 the Medical 1 mg per morning. Branch tablet Yes [id number] 1{tbl} Take 1 U nivers per50-yfyt- 9-25 tablet by ity of folic acid 00:00: mouth in [place] 29 mg iron- 00 the Medical 1 mg per morning. Branch tablet Yes [id number] 1{tbl} Take 1 U nivers czi73-kocq- 9-25 tablet by ity of folic acid 00:00: mouth in [place] 29 mg iron- 00 the Medical 1 mg per morning. Branch tablet No known No Univers medications 5-31 ity of 08:38: [address] Branch No known No Univers medications 5-31 ity of 08:38: [address] pyridoxine, 2021- No [id number] 25mg Take 1 Univers VITAMIN 5-04 -31 tablet by ity of B-6, 00:00: 00:00 mouth [place] (VITAMIN 00 :00 every 6 Medical B-6) 25 mg (six) Branch tablet hours as needed for Nausea and Vomiting (N/V). doxylamine No [id number] 25mg Take 1 Univers (UNISOM, 5-05 23-31 tablet by ity o f DOXYLAMINE, 00:00: 00[place] 25 mg 00 :00 bedtime as Medica l tablet needed for Branch Nausea and Vomiting (N/V). metoclopram No [id number] 10mg Take 1 Univers dodie HCl 10 06-2131 tablet by ity of mg tablet 00:00: 00:00 mouth [place] 00 :00 every 6 Medical (six) Branch hours as needed for Nausea and Vomiting (N/V). pyridoxine, No [id number] 25mg Take 1 Univers VITAMIN 06-21-31 tablet by ity of B-6, 00:00: 00:00 mouth [place] (VITAMIN 00 :00 every 6 Medical B-6) 25 mg (six) Branch tablet hours as needed for Nausea and Vomiting (N/V). doxylamine No [id number] 25mg Take 1 Univers (UNISOM, 06-21-31 tablet by ity o f DOXYLAMINE, 00:00: 00:00 [place] ) 25 mg 00 :00 bedtime as Medica l tablet needed for Branch Nausea and Vomiting (N/V). metoclopram No [id number] 10mg Take 1 Univers dodie HCl 10 06-21 tablet by ity of mg tablet 00:00: 00:00 mouth [place] 00 :00 every 6 Medical (six) Branch hours as needed for Nausea and Vomiting (N/V). Nitrofurant 2021- No [id number] TAKE 1 Univers oin&Nit. -03 25-31 CAPSULE BY ity of Macrocryst 00:00: 00:00 MOUTH [place] 100 mg 00 :00 EVERY 12 Medical capsule HOURS FOR Branch 10 DAYS Nitrofurant No [id number] TAKE 1 Univers oin&Nit. - 05-31 CAPSULE BY ity of Macrocryst 00:00: 00:00 MOUTH [place] 100 mg 00 :00 EVERY 12 Medical capsule HOURS FOR Branch 10 DAYS azithromyci 2021- No [id number] 500mg Take 1 Univers n 500 mg 05-31-31 tablet by ity o f tablet 00:00: 00:00 mouth [place] 00 :00 daily. [facility] Branch azithromyci 2021- No [id number] 500mg Take 1 Univers n 500 mg 4-31 tablet by ity o f tablet 00:00: 00:00 mouth [place] 00 :00 daily. Medical Branch 2021- No [id number] 1{packe Take 1 Univers vit 4-01 22-31 t} Packet by ity of 33-iron-fol 00:00: 00:[place] ic-dha 00 :00 daily. Medical ([facility] Branch + DHA) 29 mg iron-1 mg -250 mg combo pack 2021- No [id number] 1{packe Take 1 Univers vit -01 22-31 t} Packet by ity of 33-iron-fol 00:00: 00:00 [place] ic-dha 00 :00 daily. [facility] 29 mg iron-1 mg -250 mg combo pack Immunizations Ordered Filled Date Status Comments Source Immunization Name Immunization Name SARS-COV-2 COVID-19 2020-12-12 Completed Unive rsity of PFIZER VACCINE 00:00:00 [facility] SARS-COV-2 COVID-19 2020-12-12 Completed Unive rsity of PFIZER VACCINE 00:00:00 [facility] SARS-COV-2 COVID-19 2020-12-12 Completed Unive rsity of PFIZER VACCINE 00:00:00 [facility] SARS-COV-2 COVID-19 2020-12-12 Completed Unive rsity of PFIZER VACCINE 00:00:00 [facility] SARS-COV-2 COVID-19 Unknown Completed Unive rsity of PFIZER VACCINE [facility] SARS-COV-2 COVID-19 Unknown Completed Unive rsity of PFIZER VACCINE [facility] SARS-COV-2 COVID-19 Unknown Completed Unive rsity of PFIZER VACCINE [facility] SARS-COV-2 COVID-19 Unknown Completed Unive rsity of PFIZER VACCINE [facility] SARS-COV-2 COVID-19 Unknown Completed Unive rsity of PFIZER VACCINE [place] [facility] SARS-COV-2 COVID-19 Unknown Completed Unive rsity of PFIZER VACCINE [facility] cheryl Branch SARS-COV-2 COVID-19 Unknown Completed Unive rsity of PFIZER VACCINE [facility] cheryl Branch SARS-COV-2 COVID-19 Unknown Completed Unive rsity of PFIZER VACCINE [facility] cheryl Branch SARS-COV-2 COVID-19 Unknown Completed Unive rsity of PFIZER VACCINE [facility] cheryl Branch SARS-COV-2 COVID-19 Unknown Completed Unive rsity of PFIZER VACCINE [facility] cheryl Branch SARS-COV-2 COVID-19 Unknown Completed Unive rsity of PFIZER VACCINE [facility] cheryl Branch SARS-COV-2 COVID-19 Unknown Completed Unive rsity of PFIZER VACCINE [facility] cheryl Branch SARS-COV-2 COVID-19 Unknown Completed Unive rsity of PFIZER VACCINE [facility] cheryl Branch SARS-COV-2 COVID-19 Unknown Completed Unive rsity of PFIZER VACCINE [facility] cheryl Branch SARS-COV-2 COVID-19 Unknown Completed Unive rsity of PFIZER VACCINE [facility] cheryl Branch SARS-COV-2 COVID-19 Unknown Completed Unive rsity of PFIZER VACCINE [facility] cheryl Branch SARS-COV-2 COVID-19 Unknown Completed Unive rsity of PFIZER VACCINE [facility] SARS-COV-2 COVID-19 Unknown Completed Unive rsity of PFIZER VACCINE [facility] cheryl Branch SARS-COV-2 COVID-19 Unknown Completed Unive rsity of PFIZER VACCINE [facility] Vital Signs Vital Name Observation Time Observation Value Comments Source Systolic blood 2022-12-10 19:14:00 127 mm[Hg] Univer sity of pressure [facility] Diastolic blood 2022-12-10 19:14:00 85 mm[Hg] Unive rsity of pressure [facility] Heart rate 2022-12-10 19:14:00 106 /min [facility] Body temperature 2022-12-10 19:14:00 36.44 Shima [facility] Res[facility] 2022-12-10 19:14:00 18 /min [facility] Body height 2022-12-10 19:14:00 160 cm [facility] Body weight 2022-12-10 19:14:00 114.851 kg [facility] BMI 2022-12-10 19:14:00 44.85 kg/m2 Universi ty [facility] [place] [facility] Heart rate 2022-12-08 00:26:00 88 /min Universi ty of [place] [facility] Systolic blood 2022-12-07 23:02:00 128 mm[Hg] Univer sity of pressure [place] [facility] Diastolic blood 2022-12-07 23:02:00 82 mm[Hg] Unive rsity of pressure [place] [facility] Body temperature 2022-12-07 23:02:00 37.39 Shima Univ ersity of [place] [facility] Respiratory rate 2022-12-07 23:02:00 16 /min Univ ersity of [place] [facility] Body height 2022-12-07 23:02:00 160 cm Universi ty [facility] [place] [facility] Body weight 2022-12-07 23:02:00 97.523 kg Universi ty of [place] [facility] BMI 2022-12-07 23:02:00 38.09 kg/m2 Universi ty of [place] [facility] Oxygen saturation in 2022-12-07 23:02:00 99 /min University of Arterial blood by [place] [facility] cheryl Pulse oximetry Branch Systolic blood 2022-12-07 22:04:00 115 mm[Hg] Univer sity of pressure [place] [facility] Diastolic blood 2022-12-07 22:04:00 62 mm[Hg] Unive rsity of pressure [place] [facility] Heart rate 2022-12-07 22:04:00 121 /min Universi ty of [place] [facility] Body temperature 2022-12-07 22:04:00 37.39 Shima Univ ersity of [place] [facility] Body height 2022-12-07 22:04:00 160 cm Universi ty of [place] [facility] Body weight 2022-12-07 22:04:00 115.214 kg Universi ty [facility] [place] [facility] BMI 2022-12-07 22:04:00 44.99 kg/m2 Universi ty of [place] [facility] Oxygen saturation in 2022-12-07 22:04:00 98 /min University of Arterial blood by [place] Medi cheryl Pulse oximetry Branch Systolic blood 2022-12-04 20:31:00 106 mm[Hg] Univer sity of pressure [place] [facility] Diastolic blood 2022-12-04 20:31:00 68 mm[Hg] Unive rsity of pressure [place] [facility] Heart rate 2022-12-04 20:26:00 106 /min Universi ty [facility] [place] [facility] Body temperature 2022-12-04 20:26:00 36.17 Shima Univ ersity of [place] [facility] Respiratory rate 2022-12-04 20:26:00 20 /min Univ ersity of [place] [facility] Body height 2022-12-04 20:26:00 162.6 cm Universi ty [facility] [place] [facility] Body weight 2022-12-04 20:26:00 117.68 kg [facility]i ty [facility] [place] [facility] BMI 2022-12-04 20:26:00 44.53 kg/m2 Universi ty [facility] [place] [facility] Systolic blood 2022-11-27 18:29:00 126 mm[Hg] Univer sity of pressure [place] [facility] Diastolic blood 2022-11-27 18:29:00 84 mm[Hg] Unive rsity of pressure [place] [facility] Heart rate 2022-11-27 18:29:00 100 /min Universi ty [facility] [place] [facility] Body temperature 2022-11-27 18:29:00 36.56 Shima Univ ersity of [place] [facility] Respiratory rate 2022-11-27 18:29:00 20 /min Univ ersity of [place] [facility] Body height 2022-11-27 18:29:00 162.6 cm [facility]i ty [facility] [place] [facility] Body weight 2022-11-27 18:29:00 123.52 kg [facility]i ty [facility] [place] [facility] BMI 2022-11-27 18:29:00 46.74 kg/m2 Universi ty [facility] [place] [facility] Systolic blood 2022-11-12 18:42:00 120 mm[Hg] Univer sity of pressure [place] [facility] Diastolic blood 2022-11-12 18:42:00 60 mm[Hg] Unive rsity of pressure [place] [facility] Heart rate 2022-11-12 18:38:00 90 /min Universi ty [facility] [place] [facility] Body temperature 2022-11-12 18:38:00 36.78 Shima Univ ersity of [place] [facility] Respiratory rate 2022-11-12 18:38:00 18 /min Univ ersity of [place] [facility] Body height 2022-11-12 18:38:00 162.6 cm [facility]i ty [facility] [place] [facility] Body weight 2022-11-12 18:38:00 127.098 kg Universi [facility] BMI 2022-11-12 18:38:00 48.10 kg/m2 Universi ty [facility] Systolic blood 2021-07-18 13:14:00 114 mm[Hg] Univer sity of pressure [facility] Diastolic blood 2021-07-18 13:14:00 73 mm[facility]Hg] [facility] Heart rate 2021-07-18 13:14:00 71 /min [facility] Body temperature 2021-07-18 13:14:00 36.78 Shima [facility] Body height 2021-07-18 13:14:00 162.6 cm [facility] Body weight 2021-07-18 13:14:00 119.024 kg [facility] BMI 2021-07-18 13:14:00 45.04 kg/m2 [facility] Procedures Procedure Date / Time Performing Clinician Source Performed CONSENT/REFUSAL FOR 2022-12-07 22:54:39 [facility] DIAGNOSIS AND TREATMENT [place] [facility] POCT URINALYSIS 2022-12-07 22:24:00 [facility] POCT URINALYSIS 2022-12-04 20:27:00 Ghazala Pan [facility] MEDICATION CORRESPONDENCE 2022-11-30 05:01:00 Doctor Haresh, [facility] [place] [facility] POCT URINALYSIS 2022-11-27 18:29:00 Ghazala Pan [facility] SECOND AND THIRD 2022-11-20 15:35:00 Ghazala Pan [facility] TRIMESTER ULTRASOUND Medical Bra [facility] POCT URINALYSIS W/O 2022-11-12 18:29:00 Ghazala Pan [facility] SPECIFIC GRAVITY [facility] POCT TEST 2022-11-12 18:27:00 Ghazala Pan [facility] CONSENT/REFUSAL FOR 2022-11-12 18:02:53 Doctor Haresh [facility] DIAGNOSIS AND TREATMENT [place] [facility] OB TRANSVAGINAL 2021-07-18 13:45:56 Anisha Jorgensen [facility] [employer] CLINIC ULTRASOUND 2021-07-18 05:01:00 Doctor Unassigned, [facility] [place] [facility] Encounters Start End Encounter Admission Attending Care Care Encounter Source Date/Time Date/Time Type Type Clinicians Facility Department ID 2023-01-07 2023-01-07 Outpatient R NORAH [facility] [id number] Univers 14:15:00 14:15:00 GABBY [facility] 2023-01-02 2023-01-02 [facility] [id number] Univers 00:00:00 00:00:00 Ghazala Ann [employer] [id number] ity of REGIONAL 4.2.7.2.686 [place] as MATERNAL [id number] [facility] ical & CHILD [address] [place] [address] 2023-01-01 2023-01-01 [facility] [id number] Univers 15:00:00 15:00:00 GHAZALA lanier o f [facility] 2022-12-10 2022-12-10 Routine [facility] [id number] Univers 14:15:00 14:30:00 Ghazala Ann [employer] [id number] ity of Visit REGIONAL [id number] [place] as MATERNAL [id number] [facility] & CHILD [address] [place] [address] 2022-12-10 2022-12-10 Outpatient R MAXIM [facility] [id number] Univers 14:15:00 14:15:00 GHAZALA lanier o f [facility] 2022-12-07 2022-12-07 Emergency X PABLO [facility] ERT [id number] Univers 18:04:00 19:27:00 MARLINE lanier [facility] 2022-12-07 2022-12-07 Emergency Pablo [facility] [id number] Univers 18:04:00 19:27:00 Marline CAMACHO [id number] ity of [place]2.[place].2.[place] [id number] [facility] [address] [place] 2022-12-07 2022-12-07 Outpatient Zoraiad JANSEN [facility] [id number] Univers 17:00:00 17:43:03 AYAH ity [facility] 2022-12-07 2022-12-07 Urgent Ayah Jansen [facility] [id number] Univers 17:00:00 17:43:03 Care Unknown, Attending [facility] [id number] ity [facility] 4.2.7.2.686 [place] as PRESTON?BLEA [id number] [address] MEDICAL OFFICE BUILDING 2022-12-04 2022-12-04 Outpatient Zoraida ALMAZAN [facility] [id number] Univers 15:15:00 16:00:51 GABBY ity [facility] 2022-12-04 2022-12-04 [facility] [id number] Univers 15:15:00 16:00:51 Gabby Gomez [employer] [id number] ity of Visit [facility] [id number] [place] as MATERNAL [id number] Med ical & CHILD [address] [place] [address] 2022-11-30 2022-11-30 Orders Doctor KEKE [id number] Univers 00:00:00 00:00:00 Only Unassigned, GREGORY 350.1.13.10 ity of [place] [facility] [id number] 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 SUPERVISOR 350.1.13.10 ity of [facility] 4.2.7.2.686 Billy as MATERNAL [phone] Med ical & CHILD [address] [place] [address] 2022-11-27 2022-11-27 Outpatient [facility]oraida [facility] [id number] Univers 13:30:00 13:44:51 GABBY ity of [facility] 2022-11-27 2022-11-27 Routine Norah [facility] 1.2.840.114 [id number] Univers 13:30:00 13:44:51 Gabby A AUTO RENTAL SUPERVISOR 350.1.13.10 ity of Visit [facility] 4.2.7.2.686 Billy as MATERNAL [phone] [facility] & CHILD [address] [place] [address] 2022-11-26 2022-11-26 Nurse Santiago Jenkins, KEKE 1.2.840.114 [id number] Univers 00:00:00 00:00:00 Triage Devorah Beatty GREGORY 350.1.13.10 ity of [facility] 4.2.7.2.686 Billy as [phone] [address] 2022-11-22 2022-11-22 [facility] 1.2.840.114 [id number] Univers 00:00:00 00:00:00 Ghazala Ann AUTO RENTAL SUPERVISOR 350.1.13.10 ity of [facility] 4.2.7.2.686 Billy as MATERNAL [phone] [facility] & CHILD [address] [place] [address] 2022-11-20 2022-11-20 Outpatient P KENNY [facility] [id number] Univers 10:00:00 11:46:58 ALEKSANDER it y of S, GALLAGHER [facility] 2022-11-20 2022-11-20 Candle Making Supervisor Ultras[facility], [facility] 1.2 .840.114 [id number] Univers 10:00:00 11:46:58 Visit Addison Elliott Maldonado AUTO RENTAL SUPERVISOR 350.1. 13.10 ity of [facility] 4.2.7.2.686 Billy as MATERNAL [phone] [facility] & CHILD [address] [place] [address] 2022-11-12 2022-11-12 Outpatient R MAXIM [facility] [id number] Univers 13:45:00 14:44:56 GHAZALA lanier o f [facility] 2022-11-12 2022-11-12 [facility] 1.2.187.198 [id number] Univers 13:45:00 14:44:56 Ghazala C AUTO RENTAL SUPERVISOR 350.1.13.10 ity of Visit [facility] 4.2.7.2.686 Billy as MATERNAL [phone] Med ical & CHILD [address] [place] [address] 2022-11-12 2022-11-12 Orders Doctor KEKE 1.2.840.114 [id number] Univers 00:00:00 00:00:00 Only Unassigned, GREGORY 350.1.13.10 ity of [place] [address].2.7.2.686 Billy as [phone] [address] 2021-08-07 2021-08-07 Outpatient R ANISHA JORGENSEN [facility] [id number] Univers 08:15:00 08:15:00 ity [facility] 2021-08-06 2021-08-[address] [facility] 1.2.840.114 [id number] Univers 00:00:00 00:00:00 Ronald [place] 350.1.13.10 i ty of [place] [phone] Wi dical NAL [address] [place] [address] 2021-07-18 2021-07-18 Office Anisha Jorgensen [facility] 1.2.507.227 [id number] Univers 08:00:00 08:55:39 Visit Ronald [facility] 350.1.13.10 i ty of [place].7.2.[place] [phone] Wi dicmi NAL [address] [place] [address] 2021-07-18 2021-07-18 Outpatient R ANISHA JORGENSEN [facility] [id number] Univers 08:00:00 08:55:39 ity [facility] 2021-07-18 2021-07-18 Outpatient R JAMEEL [facility] [id number] Univers 08:00:00 08:00:00 ity [facility] 2021-07-18 2021-07-18 Orders Doctor DAVIES 1.2.840.114 [id number] Univers 00:00:00 00:00:00 Only Unassigned, GREGORY 350.1.13.10 ity of [facility] 4.2.7.2.[phone] [facility] [address] [place] 2021-07-13 2021-07-13 Telephone Anisha Jorgensen [facility] 1.2.840.114 [id number] Univers 00:00:00 00:00:00 Cam [place] 350.1.13.10 i ty of [facility] 4.2.7.2.[place] [phone] Wi dic[address] 2021-07-06 2021-07-06 Outpatient R ANISHA JORGENSEN [facility] [id number] Univers 16:05:13 23:59:00 ity of [facility] 2021-07-06 2021-07-06 Hospital Anisha Jorgensen [facility] 1.2.840.114 [id number] Univers 16:05:13 23:59:00 Encounter Cam [place] 350.1.13.10 ity of [place] [phone] [facility] [address] [place] [address] 2021-07-06 2021-07-06 Orders Doctor KEKE 1.2.840.114 [id number] Univers 00:00:00 00:00:00 Only Unassigned, GREGORY 350.1.13.10 ity of [place] [facility] 4.2.7.2.686 Billy as [phone] [address] 2021-07-05 2021-07-05 Outpatient R [facility] [id number] Univers 11:00:00 11:00:00 ity of [facility] 2021-06-29 2021-06-29 Outpatient R ANISHA JORGENSEN [facility] [id number] Univers 09:30:00 10:46:28 ity of [facility] 2021-06-29 2021-06-[address] [facility] 1.2.808.100 [id number] Univers 09:30:00 10:46:28 Visit Cam [place] 350.1.13.10 i ty of [place].7.2.[place] [phone] Wi dical NAL 134 [facility] 2021-06-29 2021-06-29 Orders Doctor KEKE 1.2.840.114 [id number] Univers 00:00:00 00:00:00 Only Unassigned, GREGORY 350.1.13.10 ity of [facility] 4.2.7.2.686 Billy as [phone] [address] 2021-06-27 2021-06-27 Outpatient R KARAN [facility] [id number] Univers 11:00:00 11:00:00 ALEYDA piedray o f [facility] 2021-06-27 2021-06-27 Outpatient R KARAN [facility] [id number] Univers 11:00:00 11:00:00 ALEYDA piedray o f [facility] 2021-06-26 2021-06-26 Candle Making Supervisor 2, Adc Lab [facility] 1.2.840.114 [id number] Univers 16:00:00 16:15:00 Visit Anisha Jorgensen 350.1.13.10 ity [facility] 4.2.7.2.[place] [phone] [address] 2021-06-26 2021-06-26 Outpatient R [facility] [id number] Univers 16:00:00 16:00:00 ity [facility] 2021-06-26 2021-06-26 Outpatient R JORGENSEN ANISHA [facility] [id number] Univers 16:00:00 16:00:00 ity [facility] 2021-06-23 2021-06-23 Candle Making Supervisor 2, Adc Lab [facility] 1.2.840.114 [id number] Univers 16:00:00 16:15:00 Visit Anisha Jorgensen Ronald [place] 350.1.13.10 ity of [place].2.[place] [phone] Wi dic[address] 2021-06-23 2021-06-23 Outpatient R [facility] [id number] Univers 16:00:00 16:00:00 ity [facility] 2021-06-23 2021-06-23 Outpatient R ANISHA JORGENSEN [facility] [id number] Univers 16:00:00 16:00:00 ity [facility] 2021-06-23 2021-06-23 Outpatient R [facility] [id number] Univers 11:00:00 11:00:00 ity of [facility] 2021-06-21 2021-06-21 Candle Making Supervisor 2, Adc Lab [facility] 1.2.840.114 [id number] Univers 16:00:00 16:15:00 Visit Anisha Jorgensen 350.1.13.10 ity of [place].2.[place] [phone] Wi dical NAL [address] [facility] 2021-06-21 2021-06-21 Outpatient R KRISTYN JORGENSENEN [facility] [id number] Univers 16:00:00 16:00:00 ity of [facility] 2021-06-21 2021-06-21 Initial Anisha Jorgensen [facility] 1.2.993.864 [id number] Univers 10:00:00 10:59:11 Ronald [place] 350.1.13.10 ity of Visit [place] [phone] Wi dical NAL [address] [facility] 2021-06-21 2021-06-21 Outpatient R ANISHA JORGENSEN [facility] [id number] Univers 10:00:00 10:59:11 ity of [facility] 2021-06-21 2021-06-21 Orders Doctor KEKE 1.2.840.114 [id number] Univers 00:00:00 00:00:00 Only Unassigned, GREGORY 350.1.13.10 ity of [place] [facility] 4.2.7.2.686 Billy as [phone] [address] 2021-06-19 2021-06-19 Telephone Anisha Jorgensen [facility] 1.2.840.114 [id number] Univers 00:00:00 00:00:00 Ronald [place] 350.1.13.10 i ty of [place].2.[place] [phone] Wi dical NAL 134 [facility] 2021-05-31 2021-05-31 Telephone Karan MAJOLENE 1.2.854.405 [id number] Univers 00:00:00 00:00:00 Roshunda R AUTO RENTAL SUPERVISOR 350.1.13.10 ity of [facility] 4.2.7.2.686 Billy as MATERNAL [phone] [facility] & CHILD [address] [place] [address] 2021-05-31 2021-05-31 Telephone Russo [facility] 1.2.915.532 [id number] Univers 00:00:00 00:00:00 Roshunda R AUTO RENTAL SUPERVISOR 350.1.13.10 ity of [facility] 4.2.7.2.686 Billy as MATERNAL [phone] [facility] & CHILD [address] [place] [address] 2021-05-30 2021-05-30 Outpatient R KARAN [facility] [id number] Univers 10:00:00 10:59:06 ALEYDA ity o f [facility] 2021-05-30 2021-05-30 Initial [facility] 1.2.840.114 [id number] Univers 10:00:00 10:59:06 [facility] AUTO RENTAL SUPERVISOR 350.1.13.10 ity of Visit [facility] 4.2.7.2.686 Billy as MATERNAL [phone] [facility] & [address] 2021-05-30 2021-05-30 Orders Doctor KEKE 1.2.840.114 [id number] Univers 00:00:00 00:00:00 Only Unassigned, GREGORY 350.1.13.10 ity of [place] [facility] 4.2.7.2.686 Billy as [phone] [address] 2020-10-13 2020-10-13 Outpatient R DANITA [facility] [id number] Univers 14:00:00 14:00:00 ALMA ROSA lanier of [facility] 2020-05-10 2020-05-10 Patient Kevin [facility] 1.2.840.114 [id number] Univers 00:00:00 00:00:00 Outreach Anthony PRIMARY 350.1.13.10 i ty of [facility] [place]2.7.2.[place] TARI [phone] Wi dical [address] [place] [address] 2020-04-15 2020-04-15 Office Adum, [facility] 1.2.840.114 [id number] Univers 14:44:03 16:06:32 Visit Alma Rosa Solorzano Rahel 350.1.13.10 ity of [place].2.[place] [phone] Wi dicmi nal [address] [place] [address] 2020-04-15 2020-04-15 Outpatient R ADUM, [facility] [id number] Univers 15:00:00 15:00:00 ALMA ROSA itguille [facility] 2020-04-15 2020-04-15 Orders Doctor KEKE 1.2.840.114 [id number] Univers 00:00:00 00:00:00 Only Unassigned, GREGORY 350.1.13.10 ity of [place] [facility] 4.2.7.2.686 Billy as [phone] [address] 2020-04-01 2020-04-01 Case Adum, [facility] 1.2.840.114 [id number] Univers 00:00:00 00:00:00 Management Alma Rosa [place] 350.1.13.10 ity of [place]2.[place].2.[place] [phone] Wi dical nal [address] [place] [address] 2020-03-31 2020-03-31 Office Ad, [facility] 1.2.840.114 [id number] Univers 15:10:04 16:47:36 Visit Alma Rosa [place] 350.1.13.10 ity of [place].7.2.[place] [phone] Wi dical nal [address] [place] [address] 2020-03-31 2020-03-31 Outpatient R ADUM, [facility] [id number] Univers 15:30:00 15:30:00 ALMA ROSA itguille [facility] 2020-03-31 2020-03-31 Orders Doctor KEKE 1.2.840.114 [id number] Univers 00:00:00 00:00:00 Only Unassigned, GREGORY 350.1.13.10 ity of [place] [facility] 4.2.7.2.686 Billy as [phone] [address] 2019-05-25 2019-05-25 Outpatient R JUSTYNA, [facility] [id number] Univers 15:00:00 15:00:00 AYHA lanier [facility] Results Test Description Test Time Test [...] 3267) clear Lab Interpretation (test code = 54156-2) [facility] [id number] 22:28:00 Test Item Value Reference Range Interpretation Comments POCT U SP GRAV (test code = 1.025 mg/dl 1.005-1.025 3254) POCT PH U (test code = 3254) 5 mg/dl 5-8 POCT U LEUK EST (test code = Trace Negative - Negative 3) POCT U NIT (test code = 3262) [...] 3267) Lab Interpretation (test code Abnormal = 41618-3) [facility] URINALYSIS W SPECIFIC [id number] 20:27:00 Test Item Value Reference Range Interpretation [...] POCT U APPEAR (test code = 3267) [facility] URINALYSIS W SPECIFIC [id number] 18:30:00 Test Item Value Reference Range Interpretation [...] POCT U APPEAR (test code = 3267) [facility] URINALYSIS W/O SPECIFIC [id number] 18:30:00 Test Item Value Reference Range Interpretation [...] Negative Lab Interpretation (test code = Abnormal 53326-3) [facility] URINALYSIS W/O SPECIFIC [id number] 18:30:00 Test Item Value Reference Range Interpretation [...] Negative Lab Interpretation (test code = Abnormal 26137-5) [facility] URINALYSIS W/O SPECIFIC [id number] 18:30:00 Test Item Value Reference Range Interpretation [...] Negative Lab Interpretation (test code = Abnormal 64677-9) [facility] [id number] 18:27:00 Test Item Value Reference Range Interpretation Comments POCT PREG (test code = 1605) Positive On board controls acceptable with C Yes Line (test code = 3574) POCT PREG LOT # (test code = 3575) POCT PREG TEST DATE (test code = 3576) [facility] [id number] 18:27:00 Test Item Value Reference Range Interpretation Comments POCT PREG (test code = 1605) Positive On board controls acceptable with C Yes Line (test code = 3574) POCT PREG LOT # (test code = 3575) POCT PREG TEST DATE (test code = 3576) [facility] [id number] 18:27:00 Test Item Value Reference Range Interpretation Comments POCT PREG (test code = 1605) Positive On board controls acceptable with C Yes Line (test code = 3574) POCT PREG LOT # (test code = 3575) POCT PREG TEST DATE (test code = 3576) [facility]
--- NOTE | 2023-01-04 17:41 | RAD REPORT ---
EXAM DESCRIPTION: US - Abdomen Exam Limited - 01/04/2023 5:29 pm CLINICAL HISTORY: RUQ ;Abd pain COMPARISON: No comparisons FINDINGS: The gallbladder demonstrates significant sludge. Discrete stones nonvisualized No perichol ecystic fluid or gallbladder wall thickening. The common bile duct is normal measuring 4 mm. The liver demonstrates no findings of intrahepatic biliary dilatation. IMPRESSION: Significant gallbladder sludge is likely present. No discrete stones or evidence of cho lecystitis.
[2023-01-04] MEDS ORDERED: ONDANSETRON 4 MG/2 ML VIAL ONE (18:05)
[2023-01-04] MEDS ORDERED: CEFTRIAXONE 1000 MG/VIAL ONE (18:05)
[2023-01-04] MEDS ORDERED: FAMOTIDINE 20 MG/2 ML VIAL IV ONE (18:06)
[2023-01-04] MEDS ORDERED: NA CHLORIDE 0.9% 1,000 ML ONE (18:06)
[2023-01-04 18:27] LABS: Absolute Lymphocytes (CBC) 1.6 K/uL (0.7-4.9); Hematocrit 46.4 % (36.0-45.0); Lymphocytes % 11.1 % (15.3-44.8); MCV 82.6 fL (80-100); MPV 9.2 fL (7.6-11.3); Platelets 351 thou/uL (152-406); RBC Red Blood Cell Count 5.62 M/uL (3.86-4.86)
[2023-01-04 18:35] LABS: Albumin 3.2 g/dL (3.4-5.0); Bilirubin Total 1.5 mg/dL (0.2-1.0); Protein, Total 7.4 g/dL (6.4-8.2)
[2023-01-04] MEDS ORDERED: PROMETHAZINE INJ 25 MG/ML AMP ONE (18:39)
[2023-01-04 18:40] LABS: Potassium 2.2 mEq/L (3.5-5.1)
[2023-01-04 18:43] LABS: Specific Gravity 1.012 (1.005-1.030); Urine Bacteria 20-50 /HPF (<20); Urine Bilirubin NEGATIVE (Negative); Urine Blood Negative (Negative); Urine Clarity Extremely Turbid (Clear); Urine Color Yellow (Yellow); Urine Glucose NEGATIVE (Negative); Urine Mucus 4+ /HPF (None Seen); Urine Protein TRACE (Negative); Urine Urobilinogen 2+ (Normal); Urine WBC Clump Many /HPF (None Seen)
--- NOTE | 2023-01-04 18:51 | EDPHYS ---
Physician Documentation [facility] Name: Judi Frank Age: 22 yrs Sex: Female : 2000 Arrival Date: 01/04/2023 Time: 16:36 Bed 13 Private MD: JULIAN Physician Renato Moeller HPI: 01/04 16:58 This 22 yrs old Female presents to ER via Ambulatory with complaints of Abdominal Pain, jh7 Weakness. 16:58 The patient presents with abdominal pain in the upper abdomen. Onset: The jh7 symptoms/episode began/occurred 2 week(s) ago. The symptoms do not radiate. Associated signs and symptoms: Pertinent positives: nausea and vomiting, Pertinent negatives: chest pain, diarrhea, dysuria, fever, headache, vomiting blood. 22-year-old female complains of upper abdominal pain and nausea vomiting for the past 2 weeks. Patient describes it as a burning pain. Reports decreased appetite. Denies any urinary symptoms or fever. The patient states she is 13 weeks .. 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 nj1 Historical: - Allergies: 17:11 No Known Allergies; nj1 - PMHx: 17:11 Anemia; nj1 - Immunization history:: Client reports having NOT received the Covid vaccine. - Social history:: Smoking status: Patient denies any tobacco usage or history of. ROS: 16:58 Constitutional: Negative for fever, chills, and weight loss, Eyes: Negative for injury, jh7 pain, redness, and discharge, Neck: Negative for injury, pain, and swelling, Cardiovascular: Negative for chest pain, palpitations, and edema, Respiratory: Negative for shortness of breath, cough, wheezing, and pleuritic chest pain, Back: Negative for injury and pain, MS/Extremity: Negative for injury and deformity, Skin: Negative for injury, rash, and discoloration, Neuro: Negative for headache, weakness, numbness, tingling, and seizure, 16:58 Abdomen/GI: Positive for abdominal pain, nausea and vomiting, Negative for diarrhea, constipation, rectal pain, rectal bleeding, 16:58 All other systems are negative, Exam: 16:58 Head/Face: Normocephalic, atraumatic. Eyes: Pupils equal round and reactive to light, jh7 extra-ocular motions intact. Lids and lashes normal. Conjunctiva and sclera are non-icteric and not injected. Cornea within normal limits. Periorbital areas with no swelling, redness, or edema. ENT: Nares patent. No nasal discharge, no septal abnormalities noted. Oropharynx with no redness, swelling, or masses, exudates, or evidence of obstruction, uvula midline. Mucous membranes moist. 16:58 Cardiovascular: Regular rate and rhythm with a normal S1 and S2. No gallops, murmurs, or rubs. Normal PMI, no JVD. No pulse deficits. Respiratory: Lungs have equal breath sounds bilaterally, clear to auscultation and percussion. No rales, rhonchi or wheezes noted. No increased work of breathing, no retractions or nasal flaring. Back: No spinal tenderness. No costovertebral tenderness. Full range of motion. Skin: Warm, dry with normal turgor. Normal color with no rashes, no lesions, and no evidence of cellulitis. MS/ Extremity: Pulses equal, no cyanosis. Neurovascular intact. Full, normal range of motion. Neuro: Awake and alert, GCS 15, oriented to person, place, time, and situation. Motor strength 5/5 in all extremities. Sensory grossly intact. Normal gait. 16:58 Constitutional: The patient appears alert, awake, obviously ill, 16:58 Abdomen/GI: Inspection: abdomen appears normal, Bowel sounds: normal, Palpation: abdomen is soft and non-tender, in all quadrants, Vital Signs: 16:58 BP 108 / 80; Pulse 115; Resp 18; Temp 98.2(O); Pulse Ox 94% on R/A; Weight 111.13 kg; nj1 Height 5 ft. 3 in. ; 17:15 BP 110 / 76; Pulse 105; Resp 17; Pulse Ox 97% on R/A; me1 18:00 BP 125 / 81; Pulse 90; Resp 16; Pulse Ox 96% on R/A; me1 18:30 BP 125 / 80; Pulse 90; Resp 16; Pulse Ox 100% on R/A; me1 19:00 BP 122 / 81; Pulse 97; Resp 18; Pulse Ox 100% ; me1 20:09 BP 131 / 77; Pulse 99; Resp 16; Pulse Ox 99% on R/A; me1 20:45 BP 128 / 74; Pulse 89; Resp 19; Pulse Ox 99% on R/A; in1 21:15 BP 120 / 73; Pulse 94; Resp 18; Pulse Ox 98% on R/A; in1 16:58 Body Mass Index 43.40 (111.13 kg, 160.02 cm) nj1 MDM: 16:39 Patient medically screened. [facility] 18:52 Differential diagnosis: Hyperemesis gravidarum, hypokalemia, GERD, cholecystitis, [facility] cholelithiasis, gastritis, nausea and vomiting in , influenza, viral syndrome, UTI, pyelonephritis. Data reviewed: vital signs, nurses notes, lab test result(s), radiologic studies, ultrasound. Consideration of Admission/Observation The patient will be transferred for higher level of care. I considered the following discharge prescriptions or medication management in the emergency department Medications were administered in the Emergency Department. See MAR. Counseling: I had a detailed discussion with the patient and/or guardian regarding the historical points, exam findings, and any diagnostic results supporting the discharge/admit diagnosis, the need to transfer to another facility, for higher level of care, [facility] does not immediately have the required specialist. Response to treatment: the patient's symptoms have mildly improved after treatment. 01/04 16:46 Order name: CBC with Diff; Complete Time: 18:34 [facility] 01/04 16:46 Order name: CMP; Complete Time: 18:41 [facility] 01/04 16:46 Order name: Lipase; Complete Time: 18:41 [facility] 01/04 16:46 Order name: Urinalysis w/ reflexes; Complete Time: 20:07 [facility] 01/04 17:24 Order name: Flu; Complete Time: 18:34 [facility] 01/04 18:46 Order name: Urine Osmolality; Complete Time: 20:07 [facility] 01/04 18:46 Order name: Urine Sodium Random; Complete Time: 20:07 [facility] 01/04 18:46 Order name: Osmolality, Serum; Complete Time: 20:07 [facility] 01/04 18:49 Order name: Phosphorus; Complete Time: 20:07 [facility] 01/04 19:08 Order name: Urine Culture EDND 01/04 16:46 Order name: US Abdomen Limited; Complete Time: 17:42 [facility] 01/04 16:46 Order name: IV Saline Lock; Complete Time: 18:01 [facility] 01/04 16:46 Order name: Labs collected and sent; Complete Time: 18:00 [facility] 01/04 16:46 Order name: FHT's; Complete Time: 20:19 [facility] 01/04 18:39 Order name: PO challenge: ice chips or sprite; Complete Time: 20:26 [facility] 01/04 18:39 Order name: Recheck Vital Signs; Complete Time: 18:44 [facility] Administered Medications: 18:01 Drug: NS 0.9% IV 1000 ml IV at 1 bolus Per protocol; 1000 mL bolus Route: IV; Rate: 1 me1 bolus; Site: right antecubital; 19:32 Follow up: IV Status: Completed infusion me1 18:01 Drug: Famotidine IVP 20 mg IVP once; dilute with 10 mL 0.9% NaCl; give over 2 minutes me1 Route: IVP; Site: right antecubital; 19:32 Follow up: Response: No adverse reaction me1 18:01 Drug: Ondansetron IVP 4 mg IVP once; over 2 minutes Route: IVP; Site: right antecubital;me1 19:32 Follow up: Response: No adverse reaction; Nausea unchanged me1 18:01 Drug: Rocephin IV 1 grams IV at 1 calculated rate once; Given slow IV push per pharmacy in1 instructions Route: IV; Rate: 1 calculated rate; Site: right antecubital; 19:32 Follow up: IV Status: Completed infusion me1 18:29 Drug: Promethazine IVP 12.5 mg IVP once Route: IVP; Site: right antecubital; in1 19:33 Follow up: Response: No adverse reaction; Nausea is decreased me1 18:51 CANCELLED (Physician Discretion): ns 0.9% 1000 ml IV at 1 bolus Per protocol; 1000 mL [facility] bolus 19:36 Drug: Piperacillin-Tazobactam IVPB 3.375 grams IVPB once over 60 mins; (mix in NS 100 rv mL) Route: IVPB; Infused Over: 60 mins; Site: right antecubital; 21:49 Follow up: IV Status: Completed infusion me1 19:36 Drug: NS 0.9% with KCl IV 20 mEq/L 1000 ml IV at 125 ml/hr continuous Route: IV; Rate: rv 125 ml/hr; Site: left forearm; 21:49 Follow up: IV Status: Infusion continued [place] transfer [facility] 20:13 Drug: Potassium Chloride IV 20 mEq IV at per protocol once; administer over 1-2 hours [facility] Route: IV; Rate: per protocol; Site: right antecubital; 21:49 Follow up: IV Status: Infusion continued upon transfer me1 Disposition Summary: 01/04/23 18:51 Transfer Ordered Notes: Transfer Location: [place] [id number] Reason: Higher level of care [facility] Condition: Fair [facility] Problem: an ongoing problem [facility] Symptoms: are unchanged [facility] Accepting Physician: Accepting (01/04/23 21:50[place] [facility] Diagnosis - Hyperemesis gravidarum with metabolic disturbance [facility] - Hypokalemia [facility] - Hypo-osmolality and hyponatremia [facility] - Biliary sludge [facility] - Elevated LFT's [facility] Forms: - Medication Reconciliation Form [facility] - SBAR form [facility] Addendum: 01/09/2023 07:21 Co-signature as Attending Physician, Carson Lund MD I reviewed the patient's care r n provided by the Advanced Practice Provider and agree with the diagnosis and treatment plan. Signatures: Dispatcher [employer] EDRenato Grimaldo MD MD cha Nieto, Roman, MD MD rn Vicente, Ronaldo RN RN Desirae Llanos FNP NURSING SERVICE DIRECTOR [facility] Caridad Galeano RN RN nj1 Sarahi Bradshaw RN RN in1 Corrections: (The following items were deleted from the chart) 01/04 18:51 18:41 NS 0.9% IV 1000 ml IV at 1 bolus Per protocol; 1000 mL bolus ordered. [place] [id number] 21:50 18:51 Accepting [place] in1
--- NOTE | 2023-01-04 18:51 | ER ---
Nurse's Notes [facility] Name: Judi Frank Age: 22 yrs Sex: Female : 2000 Arrival Date: 01/04/2023 Time: 16:36 Bed 13 Private MD: Diagnosis: Hyperemesis gravidarum with metabolic disturbance;Hypokalemia;Hypo-osmolality and hyponatremia;Biliary sludge;Elevated LFT's Presentation: 01/04 16:58 Chief complaint: Patient states: 13 weeks . . Pt states she has had upper me1 abdominal pain for about 2 weeks, saw OBGYN about 5 days ago. Pt states it is getting worse, making it hard to sleep at night. 16:58 Coronavirus screen: Vaccine status: Patient reports being unvaccinated. Ebola Screen: nj1 Patient denies travel to an Ebola-affected area in the 21 days before illness onset. Initial Sepsis Screen: Does the patient meet any 2 criteria? HR > 90 bpm. No. Patient's initial sepsis screen is negative. Does the patient have a suspected source of infection? No. Patient's initial sepsis screen is negative. Risk Assessment: Do you want to hurt yourself or someone else? Patient reports no desire to harm self or others. Onset of symptoms was December 2022. 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 [facility] Historical: - Allergies: 17:11 No Known Allergies; id1 - PMHx: 17:11 Anemia; id1 - Immunization history:: Client reports having NOT received the Covid vaccine. - Social history:: Smoking status: Patient denies any tobacco usage or history of. Screenin:[facility] ED Fall Risk Assessment (Adult) History of falling in the last 3 months, me1 including since admission No falls in past 3 months (0 pts) Confusion or Disorientation No (0 pts) Intoxicated or Sedated No (0 pts) Impaired Gait No (0 pts) Mobility Assist Device Used No (0 pt) Altered Elimination No (0 pt) Score/Fall Risk Level 0 - 2 = Low Risk. Abuse screen: Denies threats or abuse. Nutritional screening: No deficits noted. Tuberculosis screening: No symptoms or risk factors identified. Assessment: 17:15 General: Appears uncomfortable, well groomed, well developed, well nourished, Behavior me1 is calm, cooperative, appropriate for age, Reports 13 weeks . . Pt states she has had upper abdominal pain for about 2 weeks, saw OBGYN about 5 days ago. Pt states it is getting worse, making it hard to sleep at night. Pain: Complains of pain in abdomen Pain radiates to back Pain currently is 10 out of 10 on a pain scale. Quality of pain is described as burning, Pain began about 2 weeks ago Is continuous. Neuro: Level of Consciousness is awake, alert, obeys commands, Oriented to person, place, time, situation, Appropriate for age. 17:15 Cardiovascular: Capillary refill < 3 seconds Patient's skin is warm and dry. me1 Respiratory: Airway is patent Respiratory effort is even, unlabored, Respiratory pattern is regular, symmetrical. GI: Abdomen is round Bowel sounds present X 4 quads. Abd is soft X 4 quads. GI: Reports upper abdominal pain, epigastric pain, nausea, vomiting, since 2 weeks ago. : Denies burning with urination, urinary frequency, vaginal bleeding. 18:43 General: Rec'd critical lab: potassium 2.2. Informed Desirae Ortiz NP, rec'd [facility] orders. . 20:21 General: FHT: 139 bpm. me1 Vital Signs: 16:58 BP 108 / 80; Pulse 115; Resp 18; Temp 98.2(O); Pulse Ox 94% on R/A; Weight 111.13 kg; nj1 Height 5 ft. 3 in. ; 17:15 BP 110 / 76; Pulse 105; Resp 17; Pulse Ox 97% on R/A; me1 18:00 BP 125 / 81; Pulse 90; Resp 16; Pulse Ox 96% on R/A; me1 18:30 BP 125 / 80; Pulse 90; Resp 16; Pulse Ox 100% on R/A; me1 19:00 BP 122 / 81; Pulse 97; Resp 18; Pulse Ox 100% ; me1 20:09 BP 131 / 77; Pulse 99; Resp 16; Pulse Ox 99% on R/A; me1 20:45 BP 128 / 74; Pulse 89; Resp 19; Pulse Ox 99% on R/A; me1 21:15 BP 120 / 73; Pulse 94; Resp 18; Pulse Ox 98% on R/A; me1 16:58 Body Mass Index 43.40 (111.13 kg, 160.02 cm) [facility] ED Course: 16:39 Patient arrived in ED. rg4 16:39 [facility] jh7 16:39 Carson Lund MD is Attending Physician. 7 17:11 Triage completed. nj1 17:12 Arm band placed on. nj1 17:24 Sarahi Bradshaw, LAVINIA is Primary Nurse. me1 17:31 US Abdomen Limited In Process Unspecified. EDMS 18:00 Inserted saline lock: 22 gauge in right antecubital area, using aseptic technique. me1 18:00 Urinalysis w/ reflexes Sent. me1 18:00 Lipase Sent. me1 18:00 CMP Sent. me1 18:00 CBC with Diff Sent. me1 18:01 Flu Sent. me1 18:45 Initiated transfer with Danni at [facility]. rv1 18:53 Attending Physician role handed off by Carson Lund MD tami 18:53 Renato Moeller MD is Attending Physician. tami 19:00 Pt accepted to [facility] [place] L\T\D Triage. rv1 19:30 Inserted saline lock: 20 gauge in left forearm, using aseptic technique. rv 21:43 Patient has correct armband on for positive identification. Bed in low position. Call ky1 light in reach. Side rails up X 1. Provided Education on: POC. Verbalized understanding. . 21:43 No provider procedures requiring assistance completed. Flushed right antecubital. me1 21:47 Patient transferred, IV remains in place. me1 Administered Medications: 18:01 Drug: NS 0.9% IV 1000 ml IV at 1 bolus Per protocol; 1000 mL bolus Route: IV; Rate: 1 me1 bolus; Site: right antecubital; 19:32 Follow up: IV Status: Completed infusion me1 18:01 Drug: Famotidine IVP 20 mg IVP once; dilute with 10 mL 0.9% NaCl; give over 2 minutes me1 Route: IVP; Site: right antecubital; 19:32 Follow up: Response: No adverse reaction me1 18:01 Drug: Ondansetron IVP 4 mg IVP once; over 2 minutes Route: IVP; Site: right antecubital;me1 19:32 Follow up: Response: No adverse reaction; Nausea unchanged me1 18:01 Drug: Rocephin IV 1 grams IV at 1 calculated rate once; Given slow IV push per pharmacy ky1 instructions Route: IV; Rate: 1 calculated rate; Site: right antecubital; 19:32 Follow up: IV Status: Completed infusion me1 18:29 Drug: Promethazine IVP 12.5 mg IVP once Route: IVP; Site: right antecubital; me1 19:33 Follow up: Response: No adverse reaction; Nausea is decreased me1 18:51 CANCELLED (Physician Discretion): ns 0.9% 1000 ml IV at 1 bolus Per protocol; 1000 mL [facility] bolus 19:36 Drug: Piperacillin-Tazobactam IVPB 3.375 grams IVPB once over 60 mins; (mix in NS 100 rv mL) Route: IVPB; Infused Over: 60 mins; Site: right antecubital; 21:49 Follow up: IV Status: Completed infusion me1 19:36 Drug: NS 0.9% with KCl IV 20 mEq/L 1000 ml IV at 125 ml/hr continuous Route: IV; Rate: rv 125 ml/hr; Site: left forearm; 21:49 Follow up: IV Status: Infusion continued upon transfer me1 20:13 Drug: Potassium Chloride IV 20 mEq IV at per protocol once; administer over 1-2 hours ky1 Route: IV; Rate: per protocol; Site: right antecubital; 21:49 Follow up: IV Status: Infusion continued upon transfer me1 Medication: 21:43 VIS not applicable for this client. ky1 Outcome: 18:51 ER care complete, transfer ordered by [facility] 20:29 Transferred by ground EMS to [facility], Transfer form me1 completed. Note: Report called to Beatriz Pinzon RN. 20:29 Condition: stable 20:29 Instructed on the need for transfer, 21:50 Patient left the ED. ky1 Signatures: Dispatcher [employer] Renato Boswell MD MD cha Garcia, Rubi rg4 Panda Forte RN RN rv Desirae Ortiz, [facility] Liliya Osborn rv1 Caridad Galeano RN RN nj1 Sarahi Bradshaw RN RN me1 Corrections: (The following items were deleted from the chart) 21:36 16:58 Chief complaint: Patient states: 13 weeks . . Pt states she has had me1 upper abdominal pain for about 2 weeks, saw OBGYN about 5 days ago. Pt states it is getting worse, making it hard to sleep at night. nj1 :46 21:43 Cardiovascular: Capillary refill < 3 seconds Patient's skin is warm and dry. me1 me1 :46 21:43 Respiratory: Airway is patent Respiratory effort is even, unlabored, Respiratory ky1 pattern is regular, symmetrical, me1 :46 21:43 GI: Abdomen is round Bowel sounds present X 4 quads. Abd is soft X 4 quads me1 me1 :46 21:43 : Denies burning with urination, urinary frequency, vaginal bleeding, me1 me1 :46 21:43 GI: Reports upper abdominal pain, epigastric pain, nausea, vomiting, since 2 me1 weeks ago. me1
[2023-01-04] MEDS ORDERED: PIPERACIL/TAZO 3.375 GM VIAL IV ONE (19:29)
[2023-01-04] MEDS ORDERED: KCL 20 MEQ/100 mL IVPB 100 ML IV ONE (19:29)
[2023-01-04] MEDS ORDERED: NA CHLORIDE 0.9% 100 ML ONE (19:29)
[2023-01-04] MEDS ORDERED: NS KCL 20MEQ 1,000 ML IV ONE (19:30)
[2023-01-04 22:59] VITALS: TEMP 98.2
[2023-01-04 23:07] VITALS: BP 120/73; O2SAT 98
== END 2023-01-04 21:50 | disposition short-term general hospital (02) ==
LOC: ER 16:36
DX: O21.1 Hyperemesis gravidarum with metabolic disturbance (principal); O99.281 Endocrine, nutritional and metabolic diseases complicating pregnancy, first trimester; R79.89 Other specified abnormal findings of blood chemistry; O26.611 Liver and biliary tract disorders in pregnancy, first trimester; K83.8 Other specified diseases of biliary tract; Z3A.13 13 weeks gestation of pregnancy
CPT/HCPCS: 96365; 96367; 96368; 87088; 85025; 81001; 87086; 36415; 84100; 84300; 83690; 80053; 83930; 83935; 87804 ×2; 76705; 96375; 99285; 96366; J2550; J3480 ×2; J2543; J2405; J7030; J0696